=== PATIENT | male | born 1935 | race Caucasian/White ===

== ENCOUNTER → 2017-09-12 | Outpatient (CLI) | payer MEDICARE ==
[2017-09-12 13:36] LABS: EKG EKG PERFORMED
[2017-09-12 14:30] LABS: ALT 28 U/L (21-72); AST 29 U/L (17-59); Alkaline Phosphatase 59 U/L (38-126); Anion Gap 13 mmol/L; Blood Urea Nitrogen 11 mg/dL (9-20); Calcium 10.4 mg/dL (8.4-10.2); Carbon Dioxide 26 mmol/L (22-30); Chloride 101 mmol/L (98-107); Glucose 97 mg/dL (74-99); Non-African American GFR(MDRD) >60 (>60 ml/min/1.73 sqM); Potassium 5.2 mmol/L (3.5-5.1); Sodium 140 mmol/L (137-145); Total Bilirubin 0.4 mg/dL (0.2-1.3); Total Protein 7.9 g/dL (6.3-8.2)
[2017-09-12 14:31] LABS: INR 1.1 (<1.2); Prothrombin Time 10.8 sec (9.0-12.0)
[2017-09-12 14:36] LABS: Appearance,Urine Clear (Clear); Bilirubin,Urine Negative (Negative); Glucose,Urine (UA) Negative (Negative); Ketones,Urine Negative (Negative); Leukocyte Esterase,Urine Negative (Negative); Nitrite,Urine Negative (Negative); Protein,Urine Negative (Negative); Specific Gravity,Urine 1.013 (1.001-1.035); UA Billing (MACRO vs. MICRO) CHEM; Urobilinogen,Urine <2.0 mg/dL (<2.0)
[2017-09-12 14:41] LABS: CH 28.5; CHCM 30.9; HCT 42.2 % (39.0-53.0); HDW 2.35; Hypochromasia Slight; Large Platelets Flag Slight; MCH 28.6 pg (25.0-35.0); MCHC 30.9 g/dL (31.0-37.0); MCV 92.7 fL (80.0-100.0); Mean Platelet Volume 10.9; RBC 4.55 m/uL (4.30-5.90); RDW 15.3 % (11.5-15.5); WBC 10.3 k/uL (3.8-10.6)
== END | disposition home or self-care (01) ==
LOC: LABPAT 13:25
PROVIDERS: ATTEND Orthopaedic Surgery
DX: Z01.810 Encounter for preprocedural cardiovascular examination (principal); Z01.812 Encounter for preprocedural laboratory examination; Z79.01 Long term (current) use of anticoagulants
CPT/HCPCS: 36415; 80053; 81003; 85027; 85610; 85730; 86850; 86900; 86901; 87070; 93005

== ENCOUNTER 2018-03-22 07:46 | Day surgery (SDC) | payer MEDICARE ==
[2018-03-21 10:13] VITALS: BMI 20.1
[~2018-03-22 07:46] MED LIST: LACTATED RINGERS 1,000 ML IV SCH; LIDOCAINE 1% 20 ML VIAL (10MG/ML) FOR IV START INTRADERMA PRN; MIDAZOLAM 2 MG/2 ML VIAL IV PRN; MOXIFLOXACIN HCL 0.5% DROPS 3 ML BTL OP ONE; TETRACAINE 0.5% OPHTH (PF) DROPS 4 ML BTL OP ONE
[2018-03-22] MEDS: PHENYLEPHRINE 2.5% OPHTH DRP 2ML OP NR ×3 (08:30→08:50)
[2018-03-22] MEDS: CYCLOPENTOLATE 1% OPHTH SOLN 2 ML BTL OP ONE ×3 (08:35→08:55)
[2018-03-22 09:00] VITALS: TEMP 97.2
[2018-03-22] MEDS ORDERED: fentaNYL (PF) 50 MCG/ML 2 ML AMP ONE (09:29)
[2018-03-22] MEDS ORDERED: MIDAZOLAM 2 MG/2 ML VIAL ONE (09:29)
[2018-03-22] MEDS ORDERED: DUOVISC KIT (GREEN BOX) INTRAOCULA ONE ×2 (09:31→09:40)
[2018-03-22] MEDS ORDERED: BALANCED SALT IRRIG SOLN COMB2 15 ML IRRIG.SOLN IRRIGATION ONE ×2 (09:31→09:40)
[2018-03-22] MEDS ORDERED: LIDOCAINE 1% (PF) 10MG/ML VIAL MISCELLANE ONE ×2 (09:32→09:40)
[2018-03-22] MEDS: TIMOLOL 0.5% OPHTH DROPS 5 ML BTL OP ONE ×2 (09:32→09:40)
[2018-03-22] MEDS ORDERED: EPINEPHrine (PF) 0.3 ML in BALANCED SALT IRRIG SOLN COMB2 500 ML IRRIGATION ONE (09:33)
--- NOTE | 2018-03-22 09:56 | P.OP ---
Date of Procedure: 03/22/18 Preoperative Diagnosis: NS Postoperative Diagnosis: same Procedure(s) Performed: PIOL, OD Implants: PCB00 20.0 Anesthesia: MAC Surgeon: Santino Kirk Estimated Blood Loss (ml): 0 Pathology: none sent Condition: stable Disposition: same day Indications for Procedure: blurry vision Operative Findings: No complications
[2018-03-22 10:36] VITALS: BP 140/72; PULSE 72; RESP 16
--- NOTE | 2018-03-22 12:40 | OP ---
OPERATIVE REPORT DATE OF SURGERY: 03/22/2018. SURGEON: Santino Kirk MD PROGRAM DIRECTOR SUBSTANCE ABUSE: PREOPERATIVE DIAGNOSIS: Nuclear sclerosis. POSTOPERATIVE DIAGNOSIS: Nuclear sclerosis. OPERATION: Phacoemulsification of cataract and intraocular lens implant of the right eye. ESTIMATED BLOOD LOSS: Zero. SPECIMEN TAKEN: None. NARRATIVE: After obtaining the appropriate consent, the patient was brought to the operating room where the patient was placed under cardiac monitoring and prepped and draped in the usual sterile manner. At the 11 o'clock position a 15 degree super sharp blade was used to create a paracentesis followed by instillation of 1% Xylocaine MPF 50:50 mix with BSS into the anterior chamber. This was followed by viscoelastic Duovisc to stabilize the anterior chamber. At the 9 o'clock position a self-sealing corneal flap incision was created using 2.8 mm caity keratome. A cystotome was used to initiate a continuous tear capsulorrhexis which was completed with the Utrata forceps. A Binkhorst cannula was used to hydrodissect the lens nucleus followed by hydrodelineation. Phacoemulsification of the lens was performed utilizing phaco chop in 30.95 Seconds at 14% power. The remaining cortical material was removed using the irrigation aspiration mode followed by additional 1% Xylocaine MPF into the anterior chamber followed by viscoelastic to stabilize the capsular bag. An QUETA PCB00 20.0 diopters posterior chamber lens was placed into the capsular bag without difficulty. The remaining viscoelastic material was removed from the anterior chamber with the irrigation/aspiration. Balanced salt solution was used to normalize the intraocular pressure. The incision was checked for watertight integrity. The patient then received two drops of 0.5% timolol followed by two drops Vigamox, was lightly patched and shielded in the usual manner. There were no complications from the procedure. The patient tolerated the procedure well and was returned to recovery in good condition. MMODL / IJN: [id number] /
== END 2018-03-22 10:41 | disposition home or self-care (01) ==
LOC: OR 07:46
PROVIDERS: ATTEND Ophthalmology
DX: H25.13 Age-related nuclear cataract, bilateral (principal); H35.3131 Nonexudative age-related macular degeneration, bilateral, early dry stage; H43.21 Crystalline deposits in vitreous body, right eye; H52.13 Myopia, bilateral; H52.4 Presbyopia; F17.210 Nicotine dependence, cigarettes, uncomplicated; N40.0 Benign prostatic hyperplasia without lower urinary tract symptoms; Z79.82 Long term (current) use of aspirin; Z79.899 Other long term (current) drug therapy
CPT/HCPCS: 66984; C1780; J2250; J0171; J3010; J2001

== ENCOUNTER 2018-04-05 07:29 | Day surgery (SDC) | payer MEDICARE ==
[2018-03-30 12:01] VITALS: BMI 17.7
[~2018-04-05 07:29] MED LIST changes: +DEXAMETHASONE SOD PHOSPHATE 10 MG/ML 1 ML VIAL IV ONE; -MIDAZOLAM 2 MG/2 ML VIAL IV PRN; -MOXIFLOXACIN HCL 0.5% DROPS 3 ML BTL OP ONE; -TETRACAINE 0.5% OPHTH (PF) DROPS 4 ML BTL OP ONE
[2018-04-05 07:42] VITALS: RESP 16; TEMP 97.4
[2018-04-05] MEDS: CYCLOPENTOLATE 1% OPHTH SOLN 2 ML BTL OP ONE ×3 (07:44→08:03)
[2018-04-05] MEDS: PHENYLEPHRINE 2.5% OPHTH DRP 2ML OP NR ×4 (07:49→08:06)
[2018-04-05] MEDS ORDERED: MIDAZOLAM 2 MG/2 ML VIAL ONE (08:49)
[2018-04-05] MEDS ORDERED: fentaNYL (PF) 50 MCG/ML 2 ML AMP ONE (08:49)
[2018-04-05] MEDS ORDERED: LIDOCAINE 1% (PF) 10MG/ML VIAL SQ ONE (09:01)
[2018-04-05] MEDS ORDERED: DUOVISC KIT (GREEN BOX) INTRAOCULA ONE (09:01)
[2018-04-05] MEDS ORDERED: BALANCED SALT IRRIG SOLN COMB2 15 ML IRRIG.SOLN IRRIGATION ONE (09:01)
[2018-04-05] MEDS ORDERED: EPINEPHrine (PF) 0.3 ML in BALANCED SALT IRRIG SOLN COMB2 500 ML IRRIGATION ONE (09:03)
--- NOTE | 2018-04-05 09:15 | P.OP ---
Date of Procedure: 04/05/18 Preoperative Diagnosis: NS Postoperative Diagnosis: same Procedure(s) Performed: PIOL, OS Anesthesia: MAC Surgeon: Santino Kirk Estimated Blood Loss (ml): 0 Pathology: none sent Condition: stable () Disposition: same day Indications for Procedure: blurry vision Operative Findings: No complications
[2018-04-05 09:45] VITALS: BP 150/70; PULSE 64
--- NOTE | 2018-04-05 21:58 | OP ---
OPERATIVE REPORT DATE OF SURGERY: 04/05/2018 PROCEDURE: Phacoemulsification of cataract and intraocular lens implant of the left eye. PREOPERATIVE DIAGNOSIS: Nuclear sclerosis, left eye. POSTOPERATIVE DIAGNOSIS: Nuclear sclerosis, left eye. ESTIMATED BLOOD LOSS:: Zero. SPECIMEN TAKEN:: None. NARRATIVE:: After obtaining the appropriate consent, the patient was brought to the operating room, where the patient was placed under cardiac monitoring and prepped and draped in the usual sterile manner. At the 5 o'clock position a 15 degree super sharp blade was used to create a paracentesis followed by instillation of 1% Xylocaine MPF 50:50 mix with BSS into the anterior chamber. This was followed by Duovisc to stabilize the anterior chamber. At the 3 o'clock position a self-sealing corneal flap incision was created using 2.8 mm caity keratome. A cystotome was used to initiate a continuous tear capsulorrhexis which was completed with the Utrata forceps. A Binkhorst cannula was used to hydrodissect the lens nucleus followed by hydrodelineation. Phacoemulsification of the lens was performed utilizing phaco chop in 21.89 seconds at 11% power. The remaining cortical material was removed using the irrigation aspiration mode followed by additional 1% Xylocaine MPF into the anterior chamber followed by viscoelastic to stabilize the capsular bag. An [id number] 21.0 diopter posterior chamber lens was placed into the capsular bag without difficulty. The remaining viscoelastic material was removed from the anterior chamber with the irrigation/aspiration. Balanced salt solution was used to normalize the intraocular pressure. The incision was checked for watertight integrity. The patient then received two drops of 0.5% timolol followed by two drops Vigamox, was lightly patched and shielded in the usual manner. There were no complications from the procedure. The patient tolerated the procedure well and was returned to recovery in good condition. MMODL / IJN: [id number] /
[2018-04-06] MEDS ORDERED: MOXIFLOXACIN HCL 0.5% DROPS 3 ML BTL OP ONE (05:00)
[2018-04-06] MEDS ORDERED: TETRACAINE 0.5% OPHTH (PF) DROPS 4 ML BTL OP ONE (05:00)
[2018-04-06] MEDS ORDERED: TIMOLOL 0.5% OPHTH DROPS 5 ML BTL OP ONE (05:00)
== END 2018-04-05 09:49 | disposition home or self-care (01) ==
LOC: OR 07:29
PROVIDERS: ATTEND Ophthalmology
DX: H25.12 Age-related nuclear cataract, left eye (principal); H35.3131 Nonexudative age-related macular degeneration, bilateral, early dry stage; H43.21 Crystalline deposits in vitreous body, right eye; H52.13 Myopia, bilateral; Z96.1 Presence of intraocular lens; F17.210 Nicotine dependence, cigarettes, uncomplicated; I25.2 Old myocardial infarction; Z79.82 Long term (current) use of aspirin; Z79.1 Long term (current) use of non-steroidal anti-inflammatories (NSAID); Z79.52 Long term (current) use of systemic steroids; Z79.899 Other long term (current) drug therapy; Z85.46 Personal history of malignant neoplasm of prostate; Z85.828 Personal history of other malignant neoplasm of skin
CPT/HCPCS: 66984; C1780; J2250; J0171; J3010; J2001

== ENCOUNTER 2019-01-19 13:48 | Emergency (ER) | payer MEDICARE, OTHER ==
--- NOTE | 2019-01-19 15:51 | CT ---
EXAMINATION TYPE: CT cervical spine wo con DATE OF EXAM: 01/19/2019 COMPARISON: NONE HISTORY: Neck pain x 3 days. No known injury. CT DLP: 245.6 mGycm. Automated Exposure Control for Dose Reduction was Utilized. TECHNIQUE: CT scan of the cervical spine is obtained without contrast, axial images are obtained, sa gittal and coronal reformatted images are also reviewed. FINDINGS: There is multilevel malalignment of the cervical spine. There is mild retrolisthesis of C3 on C4, C4 and C5, C6 and C7 and grade 1 anterolisthesis of C7 on T1. Findings are likely on a degener ative basis as there is multilevel intervertebral disc space narrowing, endplate sclerosis, anterior osteophytes, uncovertebral hypertrophy, facet arthropathy and narrowing of the atlantodental interval . There is also somewhat straightening of the usual cervical lordosis. No vertebral body height loss is seen. There is diffuse osseous demineralization. There is a fracture that appears acute of both the anterior arch extending into the lateral mass as w ell as the posterior arch of C1 on the right. There is approximately 4 mm diastases of the anterior f racture site and 1 mm diastases of the posterior fracture site. The remainder of the cervical spine d oes not display evidence of acute fracture. Multilevel variable degree neural foraminal narrowing is seen as a result of the multilevel extensive degenerative disc disease. Moderate emphysematous changes are seen within the upper lungs with biapical pleural parenchymal scar ring, right greater than left. Airway appears maintained. IMPRESSION: 1. Acute minimally displaced fracture of the anterior arch and posterior arch of C1 on the right with 3 mm diastases of the anterior fracture site and 1 mm diastases of the posterior fracture site. Find ings were communicated with the Dr. Panchal in the ER at 1447 on 01/19/[address] Herzog. 2. Extensive multilevel degenerative disc disease of the cervical spine with multilevel malalignment likely on a degenerative basis and diffuse osseous demineralization.
[2019-01-19] MEDS ORDERED: MORPHINE SULFATE 2 MG/ML SYRINGE IVP STA (15:54)
--- NOTE | 2019-01-19 15:54 | ED ---
Neck Injury/Pain HPI - General Mode of arrival: wheelchair Limitations: no limitations <Janice Espinoza - Last Filed: 01/19/19 18:25> <aDvonte Panchal - Last Filed: 01/20/19 07:08> - General Chief Complaint: Neck Pain/Injury Stated Complaint: neck pain,nausea Time Seen by Provider: 01/19/19 14:21 - History of Present Illness Initial Comments: 84-year-old male with past medical history of prostate cancer presenting today for chief complaint of neck pain. Patient denies any trauma injuries or fall. Patient states she is pain to palpation of this cervical spine as well as pain with any range of motion. He states he cannot move his head without significant pain. Patient states the pain associated times makes him nauseous. Patient de nies any anticoagulation use. Patient is a visual changes, dizziness, headache, diplopia, gait changes, muscle weakness, sensation differences, speech changes. Patient states that he feels fine aside from the pain is neck. Patient states he thought he might need to see a chiropractor. Patient's family concerned when he asked to see a contractor presented for evaluation. Upon arrival patient a ppears well he is smiling and interactive, no signs of acute distress. Patient is holding neck and protective posture. Remaining ROS (-), patient denies any recent fever, chills, shortness of breath, chest pain, lower back pain, abdominal pain, nausea or vomiting, numbness or tingling, dysuria or hematuria, constipation or diarrhea, headaches or visual changes, or any other complaints. Pt VS WNL upon arrival. (Janice Espinoza) - Related Data Home Medications Medication Instructions Recorded Confirmed Cholecalciferol [Vitamin D3] 1,000 unit PO DAILY 01/19/19 01/19/19 Ferrous Sulfate [Feosol] 325 mg PO DAILY 01/19/19 01/19/19 Ibuprofen [Advil] 200 mg PO Q8HR PRN 01/19/19 01/19/19 Naproxen 500 mg PO Q12H PRN 01/19/19 01/19/19 Vits A,C,E/Lutein/Minerals 1 tab PO DAILY 01/19/19 01/19/19 [Ocuvite with Lutein Tablet] Allergies Allergy/AdvReac Type Severity Reaction Status Date / Time No Known Allergies Allergy Verified 01/19/19 14:29 Review of Systems ROS Other: All systems not noted in ROS Statement are negative. <Janice Espinoza - Last Filed: 01/19/19 18:25> ROS Other: All systems not noted in ROS Statement are negative. <Davonte Panchal - Last Filed: 01/20/19 07:08> ROS Statement: Those systems with pertinent positive or pertinent negative responses have been documented in the HPI. Past Medical History Past Medical History: Cancer, Eye Disorder, Osteoarthritis (OA), Prostate Disorder Additional Past Medical History / Comment(s): Cataracts; PROSTATE CA, SKIN CA NOSE. History of Any Multi-Drug Resistant Organisms: None Reported Past Surgical History: Joint Replacement, Prostate Surgery Additional Past Surgical History / Comment(s): Juan hip replacement Past Anesthesia/Blood Transfusion Reactions: No Reported Reaction Past Psychological History: No Psychological Hx Reported Smoking Status: Current every day smoker Past Alcohol Use History: Occasional Past Drug Use History: None Reported - Past Family History Mother Family Medical History: No Reported History Additional Family Medical History / Comment(s): no blood or hematological disorders in family <Janice Espinoza - Last Filed: 01/19/19 18:25> General Exam Limitations: no limitations <Janice Espinoza - Last Filed: 01/19/19 18:25> - General Exam Comments Initial Comments: General: The patient is awake and alert, in no distress, and does not appear acutely ill. Eye: +3 mm pupils are equal, round and reactive to light, extra-ocular movements are intact. No nystagmus. There is normal conjunctiva bilaterally. No signs of icterus. Ears, nose, mouth and throat: There are moist mucous membranes and no oral lesions. Neck: The neck is supple, there is no tenderness or JVD. Cardiovascular: There is a regular rate and rhythm. No murmur, rub or gallop is appreciated. Respiratory: Lungs are clear to auscultation, respirations are non-labored, breath sounds are equal. No wheezes, stridor, rales, or rhonchi. Gastrointestinal: Soft, non-distended, non-tender abdomen without masses or organomegaly noted. There is no rebound or guarding present. Musculoskeletal: Normal ROM, no tenderness. Strength 5/5. Sensation intact. Radial pulses equal bilaterally 2+. Patient unable to range at the neck. Patient has midline tenderness to palpation along the length of the cervical spine. Neurological: A&O x 3. CN II-XII intact, There are no obvious motor or sensory deficits. Coordination appears grossly intact. Speech is normal. No pronator drift. Skin: Skin is warm and dry and no rashes or lesions are noted. Psychiatric: Cooperative, appropriate mood & affect, normal judgment. (Janice Espinoza) Course <Janice Espinoza - Last Filed: 01/19/19 18:25> <Davonte Panchal - Last Filed: 01/20/19 07:08> Vital Signs 01/19/19 01/19/19 14:10 18:28 Temperature 98.3 F 97.4 F L Pulse Rate 81 76 Respiratory 18 20 Rate Blood Pressure 142/94 186/96 O2 Sat by Pulse 96 94 L Oximetry - Reevaluation(s) Reevaluation #1: Family just disclosed upon discussion about fracture that patient drinks heavily, not disclosed initially upon history taking or triage... concern for possible fall without patient remembering. Will obtain CT of the brain. 01/19/19 16:05 (Janice Espinoza) Reevaluation #2: 01/20/19 07:06 PA supervision: I proceeded [id number] evaluation the patient did discuss the findings and examine the patient and discussion with his family members. Patient has a history of alcoholism and denied any recall of falling though he did have a C1 fracture. I had discussed the case with Dr. Herzog. Patient had no neurological deficits. I do agree with the assessment and plan. (Davonte Panchal) Medical Decision Making <Janice Espinoza - Last Filed: 01/19/19 18:25> - Medical Decision Making A 84-year-old male with past medical history of EtOH abuse presenting today for chief complaint of neck pain. She initially denied any trauma. CT revealed a C1 fracture. Pt placed in C-collar. The [facility] was contacted for transfer. Patient neurovascularly intact, no radicular symptoms. Focal neurological deficits. CT of the brain without contrast negative. This was obtained 2 hours into visit as it was not initially disclosed that patient has history of ETOH abuse and also had full history of fall without knowing. Patient is evaluated in person by attending provider Dr. Panchal agrees with patient plan of care and transfer. Patient is agreeable with transfer to [facility] denies questions at this time. Patient given pain medications. I do recommend CIWA protocol as family concerned about withdrawal. I did speak with accepting physician at [facility] Who is accepted ER to ER transfer. Pt transferred via EMS. IM morphine given. (Janice Espinoza) Disposition Is patient prescribed a controlled substance at d/c from ED?: No Time of Disposition: 16:49 - Out of Hospital Transfer - Req. Specs Out of Hospital Transfer - Requested Specifics: Other Emergency Center ([facility]-- [facility]) <Janice Espinoza - Last Filed: 01/19/19 18:25> <Davonte Panchal - Last Filed: 01/20/19 07:08> Clinical Impression: C1 cervical fracture Disposition: OTHER INSTITUTION NOT DEFINED Condition: Good Instructions (If sedation given, give patient instructions): Cervical Fracture (ED) Referrals: Mark Sams MD [Primary Care Provider] - 1-2 days
--- NOTE | 2019-01-19 16:28 | CT ---
EXAMINATION TYPE: CT brain wo con DATE OF EXAM: 01/19/2019 COMPARISON: CT cervical spine of the same date HISTORY: Possible fall injury. Cervical spine fracture. Head pain. CT DLP: 1131.4 mGycm Automated exposure control for dose reduction was used. TECHNIQUE: CT scan of the head is performed without contrast. FINDINGS: There is no acute intracranial hemorrhage or midline shift identified. There is diffuse v entricular and sulcal prominence consistent with diffuse age-related cerebral atrophy. There is low- attenuation in the periventricular white matter consistent with chronic small vessel ischemic change. The globes are intact and the visualized sinuses are clear. Benign scleral calcifications are evide nt. Ocular lenses are surgically absent. No suspicious extra-axial fluid collection. Atherosclerosis is noted of the intracranial vasculature. Partially visualized cervical spine fracture is better al luated and discussed on the cervical spine dictation of the same date. IMPRESSION: No acute intracranial hemorrhage or midline shift. There is diffuse age-related cerebra l atrophy and chronic small vessel ischemic change noted.
[2019-01-19] MEDS ORDERED: ALPRAZolam 0.25 MG TAB PO STA (17:35)
[2019-01-19 18:32] VITALS: BP 186/96; PULSE 76; RESP 20; TEMP 97.4
== END 2019-01-19 18:28 | disposition short-term general hospital (02) ==
LOC: EC 13:48
DX: S12.000A Unspecified displaced fracture of first cervical vertebra, initial encounter for closed fracture (principal); F10.21 Alcohol dependence, in remission; Z91.81 History of falling; M19.90 Unspecified osteoarthritis, unspecified site; F17.200 Nicotine dependence, unspecified, uncomplicated; Z79.899 Other long term (current) drug therapy; Z85.46 Personal history of malignant neoplasm of prostate; Z85.828 Personal history of other malignant neoplasm of skin; Z96.643 Presence of artificial hip joint, bilateral; Z98.890 Other specified postprocedural states; X58.XXXA Exposure to other specified factors, initial encounter
CPT/HCPCS: 72125; 70450; 99284; 96374; J2270

== ENCOUNTER 2019-01-21 11:40 | Inpatient (IN) | payer MEDICARE, OTHER ==
[2019-01-21] MEDS ORDERED: NALOXONE 0.4 MG/ML 1 ML VIAL IV PRN (18:21)
[2019-01-21] MEDS ORDERED: LORazepam 2 MG/ML INJ IV PRN (18:39)
[2019-01-21] MEDS ORDERED: SODIUM CHLORIDE 0.45% 1,000 ML IV SCH (18:45)
[2019-01-21] MEDS ORDERED: SODIUM CHLORIDE 0.9% 1,000 ML IV ONE (20:31)
[2019-01-21] MEDS ORDERED: TEMAZEPAM 30 MG CAP PO SCH (21:00)
[2019-01-21 21:09] LABS: ALT 21 U/L (21-72); AST 74 U/L (17-59); Albumin 3.3 g/dL (3.5-5.0); Alkaline Phosphatase 50 U/L (38-126); Anion Gap 10 mmol/L; Blood Urea Nitrogen 10 mg/dL (9-20); Calcium 8.5 mg/dL (8.4-10.2); Carbon Dioxide 19 mmol/L (22-30); Chloride 108 mmol/L (98-107); Glucose 102 mg/dL (74-99); Sodium 137 mmol/L (137-145); Total Bilirubin 1.1 mg/dL (0.2-1.3); Total Protein 6.1 g/dL (6.3-8.2)
[2019-01-21 21:11] LABS: Potassium 4.4 mmol/L (3.5-5.1)
[2019-01-21 21:17] LABS: HCT 41.2 % (39.0-53.0); HGB 12.7 gm/dL (13.0-17.5); Hypochromasia Slight; MCH 28.7 pg (25.0-35.0); MCHC 30.7 g/dL (31.0-37.0); MCV 93.3 fL (80.0-100.0); RBC 4.42 m/uL (4.30-5.90); RDW 15.9 % (11.5-15.5); WBC 40.8 k/uL (3.8-10.6)
[2019-01-21 22:12] LABS: Lymphocytes # (M) 3.67 k/uL (1.0-4.8); Monocytes # (M) 17.95 k/uL (0-1.0); Neutrophils # (M) 19.18 k/uL (1.3-7.7); Neutrophils % (M) 47 %; Nucleated Red Blood Cells 0 /100 WBC (0-0); Total Cells Counted 100
[2019-01-21 22:17] LABS: Platelet Count 79 k/uL (150-450)
--- NOTE | 2019-01-21 22:25 | P.HPIM ---
History of Present Illness H&P Date: 01/21/19 Chief Complaint: alcohol withdrawal 84-year-old male with history of prostate cancer. And alcohol abuse Patient transfers from [facility] to our facility for alcohol withdrawal management. Initially patient presented to her ED with nonspecific complaints of neck pain however later on upon further evaluation he was found to have C1 fracture for which she was transferred to [facility] for neurosurgery evaluation he was evaluated over there and cleared by neurosurgery as he was found to be chronic C1 fracture with sclerotic margins and soft neck collar was recommended and to be followed up outpatient then patient was transferred back to her facility for further management of alcohol withdrawal. Patient has chronic history of alcohol abuse he drinks at least 3 beers every day and additional to unknown amount of vodka patient family is not aware how he is getting his hands on alcohol. Patient is unable to provide any meaningful history he is awake and alert but when asked he would deny any complaints. History was obtained by talking to the family and review medical records. Patient denies any pain chills fever headache chest pain trouble breathing nausea or vomiting he denies any numbness or tingling in his hands or feet he d oes report neck pain when he moves his head around. He denies any GI bleeding or abdominal pain. Patient has history of elevated white count at one point she was evaluated and was suspected to have CML he was supposed to follow up outpatient with hematology oncology however that never happened today his white count seems to be in the 40s he is afebrile denies any coughing denies any dysuria no focus of infection is identified at this point. Patient seems to be cachectic with poor by mouth intake at home he eats less than 1 meal a day. Otherwise labs reviewed from the other facility and was noticeable for high white count and low platelet count otherwise unremarkable UA unremarkable TSH hemoglobin was within normal limits Review of Systems Pertinent positives as noted in HPI. All other systems were reviewed and are negative Past Medical History Past Medical History: Cancer, Eye Disorder, Osteoarthritis (OA), Prostate Disorder Additional Past Medical History / Comment(s): Cataracts; PROSTATE CA, SKIN CA NOSE. History of Any Multi-Drug Resistant Organisms: None Reported Past Surgical History: Joint Replacement, Prostate Surgery Additional Past Surgical History / Comment(s): Juan hip replacement Past Anesthesia/Blood Transfusion Reactions: No Reported Reaction Past Psychological History: No Psychological Hx Reported Smoking Status: Current every day smoker Past Alcohol Use History: Occasional Past Drug Use History: None Reported - Past Family History Mother Family Medical History: No Reported History Additional Family Medical History / Comment(s): no blood or hematological disorders in family Medications and Allergies Home Medications Medication Instructions Recorded Confirmed Type Naproxen 500 mg PO Q12H PRN 01/19/19 01/21/19 History Vits A,C,E/Lutein/Minerals 1 tab PO DAILY 01/19/19 01/21/19 History [Ocuvite with Lutein Tablet] Temazepam [Restoril] 30 mg PO HS 01/21/19 01/21/19 History Allergies Allergy/AdvReac Type Severity Reaction Status Date / Time No Known Allergies Allergy Verified 01/21/19 18:58 Physical Exam Vitals: Vital Signs Temp Pulse Resp BP Pulse Ox 01/21/19 19:45 97.3 F L 17 93/58 01/21/19 18:19 100.4 F H 90 20 143/65 95 Intake and Output 01/21/19 01/21/19 01/21/19 06:59 14:59 22:59 Other: Weight 53.524 kg Constitutional: No acute distress, conversant, pleasant, cachectic, soft neck collar in place Eyes: Anicteric sclerae, moist conjunctiva, no lid-lag Pupils equal round reactive to light ENMT: NC/AT Oropharynx clear, no erythema, or exudates Neck: Soft neck collar in place limiting exam Lungs: Clear to auscultation Clear to percussion Normal respiratory effort, no accessory muscle use Cardiovascular: Heart regular in rate and rhythm, No murmurs, gallops, or rubs No peripheral edema Abdominal: Soft Nontender, no guarding, rebound or rigidity Abdomen moving with respiration Normoactive bowel sounds No hepatomegaly, No splenomegaly No palpable mass No abdominal wall hernia noted Skin: Normal temperature, tone, texture, turgor No induration No subcutaneous nodules No rash, lesions No ulcers Extremities: No digital cyanosis No clubbing Pedal pulses intact and symmetrical Radial pulses intact and symmetrical No calf tenderness Psychiatric: Alert and oriented to person, place not oriented to time Appropriate affect fair judgment Neuro Muscles Strength 4/5 in all 4 extremities Sensation to light touch grossly present throughout Cranial nerves II-XII grossly intact No focal sensory deficits Lymphatics: no palpable cervical or supraclavicular , or inguinal lymph nodes Results CBC & Chem 7: 01/21/19 20:20 01/21/19 20:20 Assessment and Plan Assessment: 84-year-old male with history of alcohol abuse and prostate cancer admitted under inpatient with anticipated length of stay more than 48 hours for alcohol w ithdrawal, patient was transferred from [facility] for management of alcohol withdrawal after being cleared by neurosurgery regarding his chronic C1 fracture with recommendations to keep soft neck collar in place. Patient also found to have elevated white count this goes back to 2017 when he suspected to have CML he was supposed to follow-up with hematology oncology but he never did. 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 at that time needs outpatient follow-up with hematology oncology Consults hematology Thrombocytopenia most like secondary to alcohol abuse Denies any GI bleeding Continue to monitor Moderate protein calorie malnutrition Encourage by mouth intake Ensure Chronic C1 fracture Cleared by neurosurgery at [facility] Continue with soft collar Outpatient follow-up with neurosurgery DVT prophylaxis mechanical due to low platelet count PT/OT Check chest x-ray, x-ray from the other facility reported to be negative no actual report was found, family reported suspicion of clavicle and rib fracture. Preformed a thorough record review from recent hospitalization at [facility] as summarized in HPI Surrogate decision-maker: Patient daughter CODE STATUS: Full code Discussed with: Patient, ER, RN Anticipated discharge: 48-[address]: Home per family request A total of 60 minutes was spent on the care of this complex patient more than 50% of the time was spent in counseling and care coordination.
--- NOTE | 2019-01-21 23:15 | XR ---
EXAM: XR Chest, 1 View CLINICAL HISTORY: ITS.REASON XR Reason: ?rib fracture, ?clavicle fracture per family TECHNIQUE: Frontal view of the chest. COMPARISON: Chest x-ray 09/24/17 IMPRESSION: No definite clavicular fracture. There is mildly deformed right posterior seventh rib which was seen before and may be related to prior fracture. No definite new acute fractures identified although limited in view on this position. Cardiomegaly. Left basilar atelectasis versus infection. Possible trace left pleural effusion.
[2019-01-21] MEDS: LORazepam 2 MG/ML INJ IV PRN (23:32)
[2019-01-21] MEDS: THIAMINE 100 MG TAB PO SCH (23:46)
[2019-01-22] MEDS: ACETAMINOPHEN TAB 325 MG TAB PO PRN (02:03)
[2019-01-22] MEDS: AMPICILLIN-SULBACTAM 3 GM in SODIUM CHLORIDE 0.9% 100 ML IVPB SCH ×3 (08:45→20:07)
[2019-01-22] MEDS: SODIUM CHLORIDE 0.45% 1,000 ML IV SCH ×3 (08:48→23:29)
[2019-01-22] MEDS: SODIUM CHLORIDE 0.9% 1,000 ML IV SCH (08:50)
[2019-01-22] MEDS ORDERED: ALBUTEROL NEBULIZED 2.5 MG/3 ML INHALATION PRN (10:32)
--- NOTE | 2019-01-22 10:44 | P.PN ---
Subjective Progress Note Date: 01/22/19 Principal diagnosis: alcohol withdrawal Patient is an 84-year-old male past medical history of prostate cancer, arthritis, and alcohol abuse who presented to the ER initially with complaints of chronic neck pain. He ultimately underwent a CT head and neck which showed a C1 fracture and was subsequently transferred to [facility] for neurosurgery evaluation. He was seen by neurosurgery and was cleared as this was found to be a chronic C1 fracture. They recommended a soft neck collar for comfort. Patient was subsequently transferred back to our facility for management of alcohol withdrawal. On arrival here he was awake and alert but was unable to provide meaningful history. Apparently has a chronic history of alcohol abuse and drinks at least 3 beers daily in addition to an unknown amount of vodka. He was started on CIWA protocol, IV fluids, and a chest x-ray was ordered. Chest x-ray showed possible left lower lobe infiltrate with subsequently started on Unasyn. Patient has chronically elevated white blood cell count that is now 40. 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 Patient seen and examined at bedside. He is somnolent. He will not speak to me but does open his eyes. He is currently not following commands. He is withdrawing to pain in all 4 extremities and moving them independently. He will make eye contact but not weak. Per nursing he was alert and talking to them recently and was able to tell the date of . He received both 3 mg of Ativan as well as 30 of Restoril last evening. Objective - Vital Signs Vital signs: Vital Signs Temp 97.4 F L 01/22/19 07:00 Pulse 80 01/22/19 07:00 Resp 14 01/22/19 07:00 BP 137/73 01/22/19 07:00 Pulse Ox 89 L 01/22/19 07:00 Intake & Output 01/21/19 01/22/19 01/22/19 18:59 06:59 18:59 Weight 53.524 kg Other: Voiding Method Diaper # Voids 3 - Exam General: Ill-appearing, mild distress, appears at stated age Derm: warm, dry Head: atraumatic, normocephalic, symmetric Eyes: EOMI, no lid lag, anicteric sclera Mouth: no lip lesion, mucus membranes dry Cardiovascular: S1S2 reg, no murmur, positive posterior tibial pulse bilateral, Lungs: Decreased breath sounds bilateral bases, no rhonchi, no rales , no accessory muscle use Abdominal: soft, nontender to palpation, no guarding, no appreciable organomegaly Ext: no gross muscle atrophy, no edema, no contractures Neuro: Pupils equal round reactive to light, extraocular motion intact, positive cough, positive gag, moving all 4 extremities independently, upgoing Babinski on left and downgoing on the right Psych: Somnolent, not seeking but moving all 4 extremities independently. - Labs CBC & Chem 7: 01/21/19 20:20 01/21/19 20:20 Labs: Abnormal Lab Results - Last 24 Hours (Table) 01/21/19 01/21/19 Range/Units 20:20 20:20 WBC 40.8 H (3.8-10.6) k/uL Hgb 12.7 L (13.0-17.5) gm/dL MCHC 30.7 L (31.0-37.0) g/dL RDW 15.9 H (11.5-15.5) % Plt Count 79 L (150-450) k/uL Neutrophils # (Manual) 19.18 H (1.3-7.7) k/uL Monocytes # (Manual) 17.95 H (0-1.0) k/uL Chloride 108 H (98-107) mmol/L Carbon Dioxide 19 L (22-30) mmol/L Creatinine 0.63 L (0.66-1.25) mg/dL Glucose 102 H (74-99) mg/dL AST 74 H (17-59) U/L Total Protein 6.1 L (6.3-8.2) g/dL Albumin 3.3 L (3.5-5.0) g/dL Assessment and Plan Assessment: Delirium tremens with resultant toxic encephalopathy - CIWA protocol, thiamin, folic acid - Stop restoril as this is a benzodiazipine and could have additive effects with the ativan - continuous pulse ox and telemetry - d/w with nursing no additional sedative medications until more awake. If he become more somnolent will need transfer to either selective or ICU - neuro check q2 X2 and then q 4 hours - social work consult - seizure and fall precautions Hyperchloremic metabolic acidosis - change IVF to 0.45 NS - repeat BMP Possible left sided PNA - start unasyn as is at risk for aspiration with hx of alcoholism and sedation, possible gram negative or anaerobic - follow CXR until clear - patient unable to produce sputum culture - prn bronchdilators - initial UA and CXR negative from [place] Leukocytosis, chronic - outpatient oncology follow-up Chronic C1 Fx - soft collar for comfort - pain medications - has been cleared by neurosurgery Thrombocytopenia - likely related to alcohol use - follow CBC Moderate protein calorie malnutrition - Tobacco abuse - nicotine replacmement - cessation DVT prophylaxis: Lovenox Discussed with: nursing, no family present at bedside Anticipated discharge: 2-[address]: likely home A total of 45 minutes was spent on the care of this complex patient more than 50% of the time was spent in counseling and care coordination.
[2019-01-22 11:37] LABS: HCT 42.1 % (39.0-53.0); HGB 13.1 gm/dL (13.0-17.5); Hypochromasia Slight; MCH 28.9 pg (25.0-35.0); MCHC 31.2 g/dL (31.0-37.0); MCV 92.5 fL (80.0-100.0); Mean Platelet Volume 12.8; RBC 4.55 m/uL (4.30-5.90); RDW 15.8 % (11.5-15.5); WBC 47.4 k/uL (3.8-10.6)
[2019-01-22 11:42] LABS: Platelet Count 81 k/uL (150-450)
[2019-01-22] MEDS: LORazepam 2 MG/ML INJ IV PRN ×2 (11:51→22:47)
[2019-01-22 11:56] LABS: Anion Gap 10 mmol/L; Blood Urea Nitrogen 10 mg/dL (9-20); Carbon Dioxide 20 mmol/L (22-30); Chloride 109 mmol/L (98-107); Glucose 87 mg/dL (74-99); Magnesium 1.6 mg/dL (1.6-2.3); Phosphorus 2.7 mg/dL (2.5-4.5); Potassium 3.7 mmol/L (3.5-5.1); Sodium 139 mmol/L (137-145)
[2019-01-22] MEDS: FOLIC ACID 1 MG TAB PO SCH (13:08)
[2019-01-22] MEDS: MULTIVITAMINS, THERA 1 EACH TAB PO SCH (13:08)
[2019-01-22] MEDS: THIAMINE 100 MG TAB PO SCH ×2 (13:08→17:07)
[2019-01-22 14:52] VITALS: BMI 21.5
--- NOTE | 2019-01-22 19:36 | P.PN ---
Progress Note - Text Called to see patient by nursing for increased wheezing. Increased wheezing confirmed on exam, he was started on duonebs. Continuous pulse ox discontinued as poor wave form but all day when wave form with good his sat was greater than 90. Patient had urinary retention this afternoon and had to have straight cath by nursing with return of 350 cc that appeared concentrated. . Asked for repeat bladder scan between 8-9 pm and call us if greater than 300.
[2019-01-22] MEDS: IPRATROPIUM-ALBUTEROL 3 ML NEB INHALATION SCH ×2 (19:55→22:59)
[2019-01-23] MEDS: LORazepam 2 MG/ML INJ IV PRN ×5 (00:54→21:31)
[2019-01-23] MEDS: AMPICILLIN-SULBACTAM 3 GM in SODIUM CHLORIDE 0.9% 100 ML IVPB SCH ×4 (02:37→20:35)
[2019-01-23] MEDS: IPRATROPIUM-ALBUTEROL 3 ML NEB INHALATION SCH ×5 (03:24→19:45)
[2019-01-23] MEDS: ACETAMINOPHEN TAB 325 MG TAB PO PRN (07:31)
[2019-01-23] MEDS: PANTOPRAZOLE 40 MG TABLET PO SCH (07:32)
[2019-01-23] MEDS: ENOXAPARIN 40 MG/0.4 ML SYRINGE SQ SCH (07:32)
[2019-01-23] MEDS: SODIUM CHLORIDE 0.45% 1,000 ML IV SCH ×3 (07:45→23:25)
[2019-01-23 08:18] LABS: HCT 41.5 % (39.0-53.0); HGB 12.9 gm/dL (13.0-17.5); Hypochromasia Slight; MCH 28.7 pg (25.0-35.0); MCHC 31.2 g/dL (31.0-37.0); Mean Platelet Volume 13.2; RBC 4.51 m/uL (4.30-5.90); RDW 15.7 % (11.5-15.5); WBC 41.2 k/uL (3.8-10.6)
[2019-01-23 08:23] LABS: Platelet Count 90 k/uL (150-450)
[2019-01-23 08:31] LABS: Anion Gap 12 mmol/L; Blood Urea Nitrogen 11 mg/dL (9-20); Calcium 8.2 mg/dL (8.4-10.2); Carbon Dioxide 18 mmol/L (22-30); Chloride 109 mmol/L (98-107); Glucose 88 mg/dL (74-99); Magnesium 1.6 mg/dL (1.6-2.3); Potassium 3.1 mmol/L (3.5-5.1); Sodium 139 mmol/L (137-145)
--- NOTE | 2019-01-23 10:38 | P.CONS ---
History of Present Illness - Reason for Consult Consult date: 01/22/19 Leukocytosis Requesting physician: Phillip Meier - Chief Complaint ETOH - History of Present Illness Mr. Zuniga is a pleasant 84 year old male patient who presents for ETOH Withdrawal. When he first presented he was found to have a C1 fracture and transferred to [facility] for Neurosurgery evaluation, Monique evaluated and determined this was a chronic fracture, soft tissue collar was recommended and he was transferred back to [facility] for continued care. He states he does have a history of colon cancer approximately 5 years ago in which he received radiation therapy. I do not have any records of this history. Hematology was consulted regarding Leukocytosis. He was last seen by hematolgy in September 2017 after right hip arthroplasty by Dr. braga. At that time evaluated for elevated post operative white count and monocytes, with a drop in platelet and hemoglobin. His presentation consistent with a CMML and was suppose to follow up as outpatient but never did. therefore we have been asked to re- assess. His blood counts this admission actually appear improved from previously, related to his cytopenias. His WBC and monocytes are about same. Review of Systems A 14 point review of systems assessed and completed and all negative except HPI Past Medical History Past Medical History: Cancer, Eye Disorder, Osteoarthritis (OA), Prostate Disorder Additional Past Medical History / Comment(s): Cataracts; PROSTATE CA, SKIN CA NOSE. History of Any Multi-Drug Resistant Organisms: None Reported Past Surgical History: Joint Replacement, Prostate Surgery Additional Past Surgical History / Comment(s): Juan hip replacement Past Anesthesia/Blood Transfusion Reactions: No Reported Reaction Past Psychological History: No Psychological Hx Reported Smoking Status: Current every day smoker Past Alcohol Use History: Occasional Past Drug Use History: None Reported - Past Family History Mother Family Medical History: No Reported History Additional Family Medical History / Comment(s): no blood or hematological disorders in family Medications and Allergies Home Medications Medication Instructions Recorded Confirmed Type Naproxen 500 mg PO Q12H PRN 01/19/19 01/21/19 History Vits A,C,E/Lutein/Minerals 1 tab PO DAILY 01/19/19 01/21/19 History [Ocuvite with Lutein Tablet] Temazepam [Restoril] 30 mg PO HS 01/21/19 01/21/19 History Allergies Allergy/AdvReac Type Severity Reaction Status Date / Time No Known Allergies Allergy Verified 01/21/19 18:58 Physical Exam Vitals: Vital Signs Temp Pulse Resp BP Pulse Ox 01/22/19 11:54 96 01/22/19 11:17 94 L 01/22/19 07:00 97.4 F L 80 14 137/73 89 L 01/22/19 01:00 101.7 F H 01/22/19 00:00 65 18 01/21/19 23:00 99.3 F 65 18 162/96 96 01/21/19 19:45 97.3 F L 17 93/58 01/21/19 18:19 100.4 F H 90 20 143/65 95 Intake and Output 01/21/19 01/22/19 01/22/19 22:59 06:59 14:59 Other: Voiding Method Diaper # Voids 2 3 Weight 53.524 kg Gen: No acute distress, poor historian, pleasant Head/Neck: C-Collar in place, Supple Lungs: No increased respiratory effort. Diminished bibasilar Heart: RRR.S1 Abd: Soft, ND Ext: No edema Neuro: No sensory or motor deficits noted Results CBC & Chem 7: 01/23/19 07:40 01/23/19 07:40 Labs: Abnormal Lab Results - Last 24 Hours (Table) 01/21/19 01/21/19 01/22/19 Range/Units 20:20 20:20 11:20 WBC 40.8 H 47.4 H (3.8-10.6) k/uL Hgb 12.7 L (13.0-17.5) gm/dL MCHC 30.7 L (31.0-37.0) g/dL RDW 15.9 H 15.8 H (11.5-15.5) % Plt Count 79 L 81 L (150-450) k/uL Neutrophils # (Manual) 19.18 H (1.3-7.7) k/uL Monocytes # (Manual) 17.95 H (0-1.0) k/uL Chloride 108 H (98-107) mmol/L Carbon Dioxide 19 L (22-30) mmol/L Creatinine 0.63 L (0.66-1.25) mg/dL Glucose 102 H (74-99) mg/dL Calcium (8.4-10.2) mg/dL AST 74 H (17-59) U/L Total Protein 6.1 L (6.3-8.2) g/dL Albumin 3.3 L (3.5-5.0) g/dL 01/22/19 Range/Units 11:20 WBC (3.8-10.6) k/uL Hgb (13.0-17.5) gm/dL MCHC (31.0-37.0) g/dL RDW (11.5-15.5) % Plt Count (150-450) k/uL Neutrophils # (Manual) (1.3-7.7) k/uL Monocytes # (Manual) (0-1.0) k/uL Chloride 109 H (98-107) mmol/L Carbon Dioxide 20 L (22-30) mmol/L Creatinine 0.63 L (0.66-1.25) mg/dL Glucose (74-99) mg/dL Calcium 8.0 L (8.4-10.2) mg/dL AST (17-59) U/L Total Protein (6.3-8.2) g/dL Albumin (3.5-5.0) g/dL Assessment and Plan Plan: Assessment and Plan (1) Leukocytosis - elevated white blood cell count with absolute neutrophilia and elevated monocytes, mild anemia and thrombocytopenia. Dr. Braga suspected possibly an underlying CMML in 2017, when first evaluated post operatively for right hip arthroplasty. - It was recommended patient follow up as outpatient for continued monitoring although never did, remediation was provided and recommendation to remain adhere nt provided. - His Platlets and Anemia are improved from previous admissiojn, At this time monitoring and surveillance indicated. - Most CMML do not require treatment although with increased WBC over past year and half closer monitoring (2) Thrombocytopenia - Remains in safe range greater than 50K - If anticoagulation or anti-platelet therapy needed, as long as platelets >50,000 Physician Attesst: I have completed the full history and physical and devloped the above impression and plan, agree with dictation. Dictated as ascribe.
[2019-01-23] MEDS ORDERED: POTASSIUM BICARBONATE/CIT AC 20 MEQ TABLET.EFF PO ONE (11:18)
[2019-01-23] MEDS ORDERED: POTASSIUM CHLORIDE 20 MEQ in WATER FOR INJECTION 1 100ML.BAG IVPB STA (11:18)
[2019-01-23] MEDS: FOLIC ACID 1 MG TAB PO SCH (12:03)
[2019-01-23] MEDS: THIAMINE 100 MG TAB PO SCH ×2 (12:03→17:23)
[2019-01-23] MEDS: MULTIVITAMINS, THERA 1 EACH TAB PO SCH (12:03)
--- NOTE | 2019-01-23 14:38 | P.PN ---
Subjective Progress Note Date: 01/23/19 Principal diagnosis: alcohol withdrawal Patient is an 84-year-old male past medical history of prostate cancer, arthritis, and alcohol abuse who presented to the ER initially with complaints of chronic neck pain. He ultimately underwent a CT head and neck which showed a C1 fracture and was subsequently transferred to [facility] for neurosurgery evaluation. He was seen by neurosurgery and was cleared as this was found to be a chronic C1 fracture. They recommended a soft neck collar for comfort. Patient was subsequently transferred back to our facility for management of alcohol withdrawal. On arrival here he was awake and alert but was unable to provide meaningful history. Apparently has a chronic history of alcohol abuse and drinks at least 3 beers daily in addition to an unknown amount of vodka. He was started on CIWA protocol, IV fluids, and a chest x-ray was ordered. Chest x-ray showed possible left lower lobe infiltrate with subsequently started on Unasyn. Patient has chronically elevated white blood cell count that is now 40. 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 His mentation improved with discontinuation of his restoril. Patient seen and examined at bedside. Awake and looking around oriented X2, c/o neck pain and shoulder pain, deneis shortness of breath. Still confused but more awake today. No fmaily present at bedside. Objective - Vital Signs Vital signs: Vital Signs Temp 98.4 F 01/23/19 10:57 Pulse 82 01/23/19 11:56 Resp 25 H 01/23/19 07:48 BP 136/62 01/23/19 07:00 Pulse Ox 92 L 01/23/19 11:48 Intake & Output 01/22/19 01/23/19 01/23/19 18:59 06:59 18:59 Intake Total 1000 1100 Output Total 350 Balance 650 1100 Weight 53.524 kg Intake: IV 1000 Sodium Chloride 0.45% 1, 1000 000 ml @ 125 mls/hr IV . Q8H [facility] Rx#:[id number] Intake, IV Titration 1100 Amount Ampicillin-Sulbactam 3 gm 100 In Sodium Chloride 0.9% 100 ml @ 200 mls/hr IVPB Q6H [facility] Rx#:[id number] Sodium Chloride 0.45% 1, 1000 000 ml @ 125 mls/hr IV . Q8H [facility] Rx#:[id number] Output: Urine 350 Uretheral (Pérez) 350 Other: Voiding Method Diaper # Voids 3 - Exam General: Ill-appearing, mild distress, appears at stated age Derm: warm, dry Head: atraumatic, normocephalic, symmetric Eyes: EOMI, no lid lag, anicteric sclera Mouth: no lip lesion, mucus membranes dry Cardiovascular: S1S2 reg, no murmur, positive posterior tibial pulse bilateral, Lungs: faint wheeze bilateral , no rhonchi, no rales , no accessory muscle use Abdominal: soft, nontender to palpation, no guarding, no appreciable organomegaly Ext: no gross muscle atrophy, no edema, no contractures Neuro: Pupils equal round reactive to light, extraocular motion intact, moving all 4 extremities independently Psych: awake but confused, follows simple commands - Labs CBC & Chem 7: 01/23/19 07:40 01/23/19 07:40 Labs: Abnormal Lab Results - Last 24 Hours (Table) 01/23/19 01/23/19 Range/Units 07:40 07:40 WBC 41.2 H (3.8-10.6) k/uL Hgb 12.9 L (13.0-17.5) gm/dL RDW 15.7 H (11.5-15.5) % Plt Count 90 L (150-450) k/uL Potassium 3.1 L (3.5-5.1) mmol/L Chloride 109 H (98-107) mmol/L Carbon Dioxide 18 L (22-30) mmol/L Calcium 8.2 L (8.4-10.2) mg/dL Microbiology - Last 24 Hours (Table) 01/22/19 01:15 Blood Culture - Preliminary Blood No Growth after 24 hours Assessment and Plan Assessment: Delirium tremens with resultant toxic encephalopathy - CIWA protocol, thiamin, folic acid - neuro check q 4 hours - social work recs - seizure and fall precautions Hyperchloremic metabolic acidosis - 0.45 NS consider change to LR - repeat BMP in AM urinary retention - pérez cath Possible left sided PNA - continue unasyn, at risk for aspiration with hx of alcoholism and sedation, possible gram negative or anaerobic - follow CXR until clear - patient unable to produce sputum culture - prn bronchdilators - initial UA and CXR negative from [place] Leukocytosis, 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
--- NOTE | 2019-01-23 15:35 | XR ---
EXAMINATION TYPE: XR chest 1V portable DATE OF EXAM: 01/23/2019 HISTORY: Shortness of breath. COMPARISON: 01/21/2019 TECHNIQUE: Single view of the chest is submitted. FINDINGS: Demonstrated are scattered senescent parenchymal change. Patchy basilar densities persist with small effusions. Mild cardiomegaly and pulmonary venous congest ion. The heart is stable. Hilar and mediastinal structures are within normal limits. Degenerative changes are seen of the dorsal spine. IMPRESSION: 1. Patchy basilar densities persist with small effusions. Mild cardiomegaly and pulmonary venous con gestion.
[2019-01-23] MEDS ORDERED: TAMSULOSIN 0.4 MG CAP.ER.24H PO STA (16:41)
[2019-01-23] MEDS ORDERED: HYDROcodone/APAP 5-325MG 1 EACH TAB PO PRN (16:41)
--- NOTE | 2019-01-23 19:29 | XR ---
PROCEDURE: XR shoulder complete LT - 3V DATE AND TIME: 01/23/2019 6:23 PM CLINICAL INDICATION: PHH; pain TECHNIQUE: Department protocol COMPARISON: None FINDINGS: There is no fracture or malalignment. There are no focal osteopenic or osteosclerotic skeletal lesions. Mild/moderate glenohumeral and acromioclavicular joint degenerative changes are noted. The soft tissues are unremarkable. IMPRESSION: NO ACUTE PROCESS.
[2019-01-24] MEDS: IPRATROPIUM-ALBUTEROL 3 ML NEB INHALATION SCH ×7 (00:38→23:37)
[2019-01-24] MEDS: LORazepam 2 MG/ML INJ IV PRN (00:49)
[2019-01-24] MEDS: AMPICILLIN-SULBACTAM 3 GM in SODIUM CHLORIDE 0.9% 100 ML IVPB SCH ×4 (03:01→19:36)
[2019-01-24 08:31] LABS: ALT 28 U/L (21-72); AST 45 U/L (17-59); Albumin 2.6 g/dL (3.5-5.0); Alkaline Phosphatase 69 U/L (38-126); Anion Gap 14 mmol/L; Blood Urea Nitrogen 10 mg/dL (9-20); Carbon Dioxide 16 mmol/L (22-30); Chloride 109 mmol/L (98-107); Glucose 71 mg/dL (74-99); Potassium 3.3 mmol/L (3.5-5.1); Sodium 139 mmol/L (137-145); Total Bilirubin 1.1 mg/dL (0.2-1.3)
[2019-01-24 09:05] LABS: Anisocytosis Slight; HCT 37.5 % (39.0-53.0); HGB 11.9 gm/dL (13.0-17.5); Hypochromasia Moderate; MCH 29.8 pg (25.0-35.0); MCHC 31.6 g/dL (31.0-37.0); MCV 94.4 fL (80.0-100.0); Mean Platelet Volume 14.2; RBC 3.98 m/uL (4.30-5.90); RDW 16.1 % (11.5-15.5); WBC 35.9 k/uL (3.8-10.6)
[2019-01-24 09:07] LABS: Platelet Count 97 k/uL (150-450)
[2019-01-24] MEDS: SODIUM CHLORIDE 0.45% 1,000 ML IV SCH ×2 (09:12→12:13)
[2019-01-24] MEDS: ENOXAPARIN 40 MG/0.4 ML SYRINGE SQ SCH (09:21)
[2019-01-24] MEDS: PANTOPRAZOLE 40 MG TABLET PO SCH (09:24)
[2019-01-24] MEDS: THIAMINE 100 MG TAB PO SCH ×2 (12:11→18:05)
[2019-01-24] MEDS: MULTIVITAMINS, THERA 1 EACH TAB PO SCH (12:11)
[2019-01-24] MEDS: FOLIC ACID 1 MG TAB PO SCH (12:11)
[2019-01-24] MEDS ORDERED: POTASSIUM CHLORIDE ER 20 MEQ TAB.ER PO STA (19:35)
[2019-01-24] MEDS ORDERED: NAPROXEN 250 MG TAB PO PRN (19:36)
[2019-01-24] MEDS ORDERED: DEXTROSE 5%-0.45% NACL 1,000 ML IV SCH (19:45)
--- NOTE | 2019-01-24 19:46 | P.PN ---
Subjective Progress Note Date: 01/24/19 (delayed charting seen at 1030) Principal diagnosis: alcohol withdrawal Patient is an 84-year-old male past medical history of prostate cancer, arthritis, and alcohol abuse who presented to the ER initially with complaints of chronic neck pain. He ultimately underwent a CT head and neck which showed a C1 fracture and was subsequently transferred to [facility] for neurosurgery evaluation. He was seen by neurosurgery and was cleared as this was found to be a chronic C1 fracture. They recommended a soft neck collar for comfort. Patient was subsequently transferred back to our facility for management of alcohol withdrawal. On arrival here he was awake and alert but was unable to provide meaningful history. Apparently has a chronic history of alcohol abuse and drinks at least 3 beers daily in addition to an unknown amount of vodka. He was started on CIWA protocol, IV fluids, and a chest x-ray was ordered. Chest x-ray showed possible left lower lobe infiltrate with subsequently started on Unasyn. Patient has chronically elevated white blood cell count that is now 40. 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 His mentation improved with discontinuation of his restoril. His mentation continued to improved slowly. Patient seen and examined at bedside. More alert today. He states that his neck and back are sore, arms hurt too, no nausea, no shortness of breath. No family present at bedside. Objective - Vital Signs Vital signs: Vital Signs Temp 99.1 F 01/24/19 15:00 Pulse 68 01/24/19 15:56 Resp 20 01/24/19 16:00 BP 159/72 01/24/19 15:00 Pulse Ox 88 L 01/24/19 15:00 Intake & Output 01/24/19 01/24/19 01/25/19 06:59 18:59 06:59 Intake Total 1100 Output Total 350 480 Balance -350 620 Intake: Intake, IV Titration 1100 Amount Ampicillin-Sulbactam 3 gm 100 In Sodium Chloride 0.9% 100 ml @ 200 mls/hr IVPB Q6H [facility] Rx#:[id number] Sodium Chloride 0.45% 1, 1000 000 ml @ 125 mls/hr IV . Q8H [facility] Rx#:[id number] Output: Urine 350 480 Other: Voiding Method Indwelling Catheter Indwelling Catheter Indwelling Catheter - Exam General: Ill-appearing, no distress, appears at stated age Derm: warm, dry Head: atraumatic, normocephalic, symmetric Eyes: EOMI, no lid lag, anicteric sclera Mouth: no lip lesion, mucus membranes dry Cardiovascular: S1S2 reg, no murmur, positive posterior tibial pulse bilateral, Lungs: decreased bs bilateral , no rhonchi, no rales , no accessory muscle use Abdominal: soft, nontender to palpation, no guarding, no appreciable organomegaly Ext: no gross muscle atrophy, no edema, no contractures Neuro: Pupils equal round reactive to light, extraocular motion intact, moving all 4 extremities independently Psych: awake but confused, follows simple commands - Labs CBC & Chem 7: 01/24/19 07:36 01/24/19 07:36 Labs: Abnormal Lab Results - Last 24 Hours (Table) 01/24/19 01/24/19 Range/Units 07:36 07:36 WBC 35.9 H (3.8-10.6) k/uL RBC 3.98 L (4.30-5.90) m/uL Hgb 11.9 L (13.0-17.5) gm/dL Hct 37.5 L (39.0-53.0) % RDW 16.1 H (11.5-15.5) % Plt Count 97 L (150-450) k/uL Potassium 3.3 L (3.5-5.1) mmol/L Chloride 109 H (98-107) mmol/L Carbon Dioxide 16 L (22-30) mmol/L Creatinine 0.64 L (0.66-1.25) mg/dL Glucose 71 L (74-99) mg/dL Calcium 8.0 L (8.4-10.2) mg/dL Total Protein 5.0 L (6.3-8.2) g/dL Albumin 2.6 L (3.5-5.0) g/dL Microbiology - Last 24 Hours (Table) 01/22/19 01:15 Blood Culture - Preliminary Blood No Growth after 48 hours Assessment and Plan Assessment: Delirium tremens with resultant toxic encephalopathy - CIWA protocol, thiamine, folic acid - neuro check q 4 hours - social work recs - seizure and fall precautions Hyperchloremic metabolic acidosis - change to D5 0.45, + anion gap, check lactic acid avoid LR - repeat BMP in AM - repeat UA to assess for keytones, check lactic acid due to worsening acidosis no oral intake in 24 hours urinary retention - pérez cath - flomax started 01/23 and continued - voiding trial in AM on 01/25 Left sided PNA - continue unasyn, at risk for aspiration with hx of alcoholism and sedation, possible gram negative or anaerobic - change to Augmentin on discharge - follow CXR until clear - patient unable to produce sputum culture - prn bronchdilators - initial UA and CXR negative from [place] Leukocytosis, 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 DVT prophylaxis: Lovenox Discussed with: nursing, no family present at bedside Anticipated discharge: 24-[address]:Will need SNF on discharge A total of 35 minutes was spent on the care of this complex patient more than 50% of the time was spent in counseling and care coordination.
[2019-01-24 21:19] LABS: Appearance,Urine Clear (Clear); Bilirubin,Urine Negative (Negative); Blood,Urine Large (Negative); Color,Urine Yellow; Glucose,Urine (UA) Negative (Negative); Ketones,Urine 2+ (Negative); Leukocyte Esterase,Urine Small (Negative); Mucus,Urine Rare /hpf; Nitrite,Urine Negative (Negative); Protein,Urine 1+ (Negative); RBC,Urine >182 /hpf (0-5); Specific Gravity,Urine 1.019 (1.001-1.035)
[2019-01-24] MEDS ORDERED: POTASSIUM CHLORIDE 20 MEQ in WATER FOR INJECTION 1 100ML.BAG IVPB STA (21:43)
[2019-01-24] MEDS: TAMSULOSIN 0.4 MG CAP.ER.24H PO SCH (22:04)
[2019-01-24] MEDS: ACETAMINOPHEN TAB 500 MG TAB PO SCH (22:05)
[2019-01-25] MEDS: ACETAMINOPHEN TAB 500 MG TAB PO SCH ×5 (00:24→23:13)
--- NOTE | 2019-01-25 00:48 | CT ---
EXAM: CT Angiography Chest With Intravenous Contrast CLINICAL HISTORY: Shortness of breath TECHNIQUE: Axial computed tomographic angiography images of the chest with intravenous contrast using pulmonary embolism protocol. CTDI is 0.085, 0. 085, 1.5, 1.54, 8.1 mGy and DLP is 365.4 mGy-cm. This CT exam was performed using one or more of the following dose reduction techniques: automated exposure control, adjustment of the mA and/or kV according to patient size, and/or use of iterative reconstruction technique. MIP reconstructed images were created and reviewed. COMPARISON: CXR 01/23/2019 FINDINGS: Artifacts: Motion. Pulmonary arteries: No central pulmonary embolus. Aorta: Atherosclerosis of the thoracic aorta. No thoracic aortic aneurysm or dissection. Lungs: Bilateral dependent densities are favored to represent atelectasis. No mass. Pleural space: Moderate bilateral pleural effusions. No pneumothorax. Heart: Unremarkable. No cardiomegaly. No significant pericardial effusion. Bones/joints: Age-indeterminate fracture of the anterior superior endplate of L2 with approximately 40% height loss. Soft tissues: Unremarkable. Lymph nodes: Unremarkable. No enlarged lymph nodes. IMPRESSION: Moderate bilateral pleural effusions with adjacent atelectasis. No central pulmonary embolus or thoracic aortic dissection. Age indeterminate fracture of the anterior superior endplate of L2.
[2019-01-25] MEDS ORDERED: FUROSEMIDE 10 MG/ML 10 ML VIAL IV STA (01:07)
[2019-01-25] MEDS: AMPICILLIN-SULBACTAM 3 GM in SODIUM CHLORIDE 0.9% 100 ML IVPB SCH ×4 (03:02→20:13)
[2019-01-25] MEDS: IPRATROPIUM-ALBUTEROL 3 ML NEB INHALATION SCH ×5 (03:34→20:50)
[2019-01-25] MEDS ORDERED: MORPHINE SULFATE 2 MG/ML SYRINGE IVP ONE (07:36)
[2019-01-25 08:26] LABS: Anisocytosis Slight; HCT 37.5 % (39.0-53.0); HGB 11.9 gm/dL (13.0-17.5); Hypochromasia Slight; MCH 29.2 pg (25.0-35.0); MCHC 31.9 g/dL (31.0-37.0); MCV 91.5 fL (80.0-100.0); Platelet Count 117 k/uL (150-450); RBC 4.09 m/uL (4.30-5.90); RDW 16.1 % (11.5-15.5); WBC 43.3 k/uL (3.8-10.6)
[2019-01-25 08:44] LABS: Anion Gap 14 mmol/L; Blood Urea Nitrogen 12 mg/dL (9-20); Calcium 8.3 mg/dL (8.4-10.2); Carbon Dioxide 21 mmol/L (22-30); Chloride 107 mmol/L (98-107); Glucose 105 mg/dL (74-99); Sodium 142 mmol/L (137-145)
[2019-01-25 08:51] LABS: Potassium 2.6 mmol/L (3.5-5.1)
[2019-01-25] MEDS ORDERED: POTASSIUM CHLORIDE 40 MEQ in WATER FOR INJECTION 1 100ML.BAG IVPB STA ×2 (08:54→08:55)
[2019-01-25] MEDS: POTASSIUM CHLORIDE 20 MEQ in WATER FOR INJECTION 1 100ML.BAG IVPB SCH ×4 (09:20→18:04)
--- NOTE | 2019-01-25 11:02 | P.PN ---
Subjective Progress Note Date: 01/25/19 Principal diagnosis: Hypokalemia, alcohol withdrawal, hypoxia Patient was seen and examined. No acute events overnight. Patient is not providing any meaningful history. He denies any cough, shortness of breath, chest pain or palpitations. He does visibly have a wet cough. Reports overnight from nursing indicate the patient was hypoxic with difficulty breathing. Currently on nonrebreather saturating low 90%. CTA of the chest performed to exclude PE, shows bilateral pleural effusions. Given 80 mg IV Lasix push last night. Continued on Unasyn for coverage of aspiration pneumonia. Objective - Vital Signs Vital signs: Vital Signs Temp 98.8 F 01/25/19 07:00 Pulse 68 01/25/19 08:24 Resp 12 01/25/19 07:00 BP 180/100 01/25/19 07:00 Pulse Ox 93 L 01/25/19 08:13 Intake & Output 01/24/19 01/25/19 01/25/19 18:59 06:59 18:59 Intake Total 1100 0 Output Total 480 2550 Balance 620 -2550 Intake: Intake, IV Titration 1100 Amount Ampicillin-Sulbactam 3 gm 100 In Sodium Chloride 0.9% 100 ml @ 200 mls/hr IVPB Q6H CYDNEY Rx#:[id number] Sodium Chloride 0.45% 1, 1000 000 ml @ 125 mls/hr IV . Q8H CYDNEY Rx#:[id number] Oral 0 Output: Urine 480 2550 Other: Voiding Method Indwelling Catheter Indwelling Catheter - Exam General: [non toxic], [labored breathing on nonrebreather], [appears at stated age] Derm: [warm], [dry] Head: [atraumatic], [normocephalic], [symmetric] Eyes: [EOMI], [no lid lag], [anicteric sclera] Mouth: [no lip lesion], [mucus membranes moist] Cardiovascular: [S1S2 reg], [no murmur], [positive DP pulse bilateral] Lungs: [Coarse breath sounds bilaterally with rales at the bases] , [no accessory muscle use] Abdominal: [soft], [ nontender to palpation], [no guarding], [no appreciable organomegaly] Ext: [no gross muscle atrophy], [no edema], [no contractures] Neuro: [moving all extremities freely] Psych: [Alert], [oriented], [appropriate affect] - Labs CBC & Chem 7: 01/25/19 07:43 01/25/19 07:43 Labs: Abnormal Lab Results - Last 24 Hours (Table) 01/24/19 01/25/19 01/25/19 Range/Units 20:30 07:43 07:43 WBC 43.3 H (3.8-10.6) k/uL RBC 4.09 L (4.30-5.90) m/uL Hgb 11.9 L (13.0-17.5) gm/dL Hct 37.5 L (39.0-53.0) % RDW 16.1 H (11.5-15.5) % Plt Count 117 L (150-450) k/uL Potassium 2.6 L* (3.5-5.1) mmol/L Carbon Dioxide 21 L (22-30) mmol/L Glucose 105 H (74-99) mg/dL Calcium 8.3 L (8.4-10.2) mg/dL Urine Protein 1+ H (Negative) Urine Ketones 2+ H (Negative) Urine Blood Large H (Negative) Ur Leukocyte Esterase Small H (Negative) Urine RBC >182 H (0-5) /hpf Urine WBC 14 H (0-5) /hpf Urine Mucus Rare H (None) /hpf Microbiology - Last 24 Hours (Table) 01/22/19 01:15 Blood Culture - Preliminary Blood No Growth after 72 hours 01/24/19 20:30 Urine Culture - Preliminary Urine,Voided Assessment and Plan Assessment: Assessment and Plan 1. Delirium tremens with metabolic encephalopathy 2. Acute hypoxic respiratory failure 3. Hypokalemia 4. Urinary retention 5. Aspiration pneumonia 6. Leukocytosis 7. C1 fracture, chronic 8. Thrombocytopenia 9. Protein calorie malnutrition 10. DVT and GI prophylaxis 1. Continue thiamine, folic acid and multivitamin by mouth. Ativan IV as needed per CIWA protocol. Fall precautions. Advanced neurochecks. Seizure precautions. Follow PT and OT recommendations. 2. Concerns for aspiration, pulmonary edema. CTA of the chest showed bilateral pleural effusions and no PE. Given Lasix 80 mg IV stat last night, we'll continue Lasix 40 mg IV twice a day. We'll follow echocardiogram. DuoNeb as needed for shortness of breath or wheezing. Oxygen per nasal cannula or nonrebreather to maintain an O2 sat greater than 92%. BiPAP as needed. Follow pulmonology consult. 3. Likely secondary to alcohol abuse. Ordered EKG stat. Telemetry monitoring. Replace potassium via IV of 80 mEq. Follow-up BMP in the afternoon. 4. Continue Flomax 0.4 mg by mouth daily. Bladder scan as needed. Voiding trial and Benson catheter as needed. Monitor ins and outs closely. 5. T-max 100.1F on 01/24/2019 with leukocytosis as high as 47.4. Continue Unasyn 3 g IV every 6 hours. Tylenol as needed for fever. Continue DuoNeb, albuterol as needed for shortness of breath and wheezing. Suctioning as needed, maintain oxygenation via nasal cannula/nonrebreather/BiPAP. Blood cultures negative at 72 hours. Will follow pulmonary consult. Keep nothing by mouth pending swallow eval. 6. 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 He has been previously evaluated by h ematology and lost to follow-up. I have discussed the case with Dr. Braga, nothing to do inpatient, follow-up in the outpatient setting. 7. Pain management with Tylenol or naproxen as needed. Evaluated by neurosurgery at [facility], cleared for chronic fracture. Advised to wear c-collar at all times. 8. Platelet count of 117. This is likely secondary to alcohol abuse. Will trend his platelets given that patient is on Lovenox. 9. BMI 21.6 with low albumin. Add oral supplementation. 10. Lovenox. Protonix by mouth. Continue IV diuresis for pleural effusion. Pulmonology consulted for change in respiratory status, low threshold for intubation. Patient has poor overall prognosis due to multiple comorbid conditions. Will follow echocardiogram, IV antibiotics.
[2019-01-25] MEDS: PANTOPRAZOLE 40 MG TABLET PO SCH (11:08)
[2019-01-25] MEDS: ENOXAPARIN 40 MG/0.4 ML SYRINGE SQ SCH (11:15)
[2019-01-25] MEDS: FUROSEMIDE 10 MG/ML 4 ML VIAL IV SCH ×2 (11:16→23:13)
--- NOTE | 2019-01-25 12:31 | ECHOF ---
Referral Reason:Hypoxia, BL pleural effusion MEASUREMENTS -------- HEIGHT: 157.5 cm WEIGHT: 53.5 kg BP: IVSd: 1.4 cm (0.6 - 1.1) LVIDd: 3.6 cm (3.9 - 5.3) LVPWd: 1.2 cm (0.6 - 1.1) IVSs: 1.4 cm LVIDs: 3.2 cm LVPWs: 1.3 cm LAESV Index (A-L): 27.68 ml/m Ao Diam: 3.6 cm (2.0 - 3.7) AV Cusp: 2.1 cm (1.5 - 2.6) LA Diam: 3.9 cm (2.7 - 3.8) MV EXCURSION: 20.824 mm (> 18.000) MV EF SLOPE: 99 mm/s (70 - 150) EPSS: 0.6 cm MV E Isreal: 0.70 m/s MV DecT: 233 ms MV A Isreal: 0.76 m/s MV E/A Ratio: 0.92 RAP: 5.00 mmHg RVSP: 24.59 mmHg FINDINGS -------- Atrial fibrillation. This was a technically difficult study with suboptimal views. The left ventricular size is normal. There is mild concentric left ventricular hypertrophy. There is severe global hypokinesis of LV . Overall left ventricular systolic function is moderate-severe ly impaired with, an EF between 30 - 35 %. The right ventricle is normal in size. Normal LA size by volume 22+/-6 ml/m2. The right atrial size is normal. Lumason used Aortic valve is trileaflet and is mildly thickened. The mitral valve leaflets are mildly thickened. Mild mitral regurgitation is present , predominatel y a posteriorly directed jet. Mild tricuspid regurgitation present. There is no evidence of pulmonary hypertension. The right v entricular systolic pressure, as measured by Doppler, is 24.59mmHg. There is no pulmonic regurgitation present. The aortic root size is normal. IVC Not well visulized. There is a trivial pericardial effusion present. CONCLUSIONS -------- 1. Atrial fibrillation. 2. This was a technically difficult study with suboptimal views. 3. The left ventricular size is normal. 4. There is mild concentric left ventricular hypertrophy. 5. There is severe global hypokinesis of LV . 6. Overall left ventricular systolic function is moderate-severely impaired with, an EF between 30 - 35 %. 7. Normal LA size by volume 22+/-6 ml/m2. 8. Lumason used 9. Aortic valve is trileaflet and is mildly thickened. 10. Mild mitral regurgitation is present. 11. , predominately a posteriorly directed jet. 12. Mild tricuspid regurgitation present. 13. There is no evidence of pulmonary hypertension. 14. There is no pulmonic regurgitation present. 15. The aortic root size is normal. 16. IVC Not well visulized. 17. There is a trivial pericardial effusion present. EVENT SET UP SPECIALIST: Marva Johnson RDCS
--- NOTE | 2019-01-25 13:26 | US ---
EXAMINATION TYPE: US chest DATE OF EXAM: 01/25/2019 COMPARISON: CLINICAL HISTORY: Markings for thoracentesis by pulmonary staff. bilateral chest markings, pleural ef fusions TECHNIQUE: Targeted ultrasound of the posterior lower bilateral hemithoraces EXAM MEASUREMENTS: Right Pleural Effusion pocket size: 2.3 cm Left Pleural Effusion pocket size: 5.5 cm Left skin surface to fluid distance: 2.0 cm Right side NOT marked for possible thoracentesis due to small clear fluid pocket. Left side marked for possible thoracentesis outside the dept. Pulmonologists are able to review the images in the patient?s EMR. Limited exam due to patient unable to sit upright without help IMPRESSIONS: Bilateral pleural effusions left greater than right
[2019-01-25] MEDS ORDERED: IPRATROPIUM-ALBUTEROL 3 ML NEB INHALATION PRN (14:29)
[2019-01-25] MEDS ORDERED: MORPHINE SULFATE 2 MG/ML SYRINGE IVP PRN (14:44)
[2019-01-25] MEDS: THIAMINE 100 MG TAB PO SCH ×2 (14:53→18:15)
[2019-01-25] MEDS: MULTIVITAMINS, THERA 1 EACH TAB PO SCH (14:53)
[2019-01-25] MEDS: FOLIC ACID 1 MG TAB PO SCH (14:54)
--- NOTE | 2019-01-25 16:40 | XR ---
EXAMINATION TYPE: XR wrist complete BILATERAL DATE OF EXAM: 01/25/2019 COMPARISON: NONE HISTORY: 84-year-old male increasing bilateral wrist pain TECHNIQUE: 4 views each side FINDINGS: Left: End-stage degenerative change first CMC joint and moderate at the triscaphe joint. There is periartic ular disuse osteopenia. Soft tissue swelling. The radiocarpal and distal radioulnar joint as well as the midcarpal compartment appear intact. No displaced fracture, subluxation, or dislocation seen. Add itional degenerative changes within the remainder of the thumb. An IV is present. Right: Moderate to severe degenerative change first CMC joint and moderate at the triscaphe joint. Generaliz ed disuse osteopenia. Additional degenerative changes first through third MCP joints. There may be de generative change at the third CMC joint as well. Soft tissue swelling. The radiocarpal and distal ra dioulnar joint as well as the metacarpal compartment appear intact. Some mild TFC calcifications are present on both sides. IMPRESSION: 1. Soft tissue swelling and disuse osteopenia bilaterally. 2. 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 Additional scattered osteoarthritic changes within visualized portions of the hand. 3. No acute osseous abnormality seen. 4. Some mild TFC calcifications on both sides could represent underlying CPPD.
--- NOTE | 2019-01-25 17:21 | CONS ---
CONSULTATION DATE OF SERVICE: 01/25/2019. PULMONARY/CRITICAL CARE CONSULTATION: This is an 84-year-old gentleman we are asked to see because of bilateral pleural effusions. He has bilateral small effusions, left greater than right. We did do an ultrasound. The left side is a little bit bigger than the right side. Because of his age and because of his chronic condition, probably he should be treated conservatively with just diuretics. The right-sided effusion is too small to tap. The left side is relatively small, and we could probably do a thoracentesis on that side, but I do not know that it would help the patient all that much. He apparently was transferred from this hospital to [facility] to evaluate a potential C1 fracture. Apparently it was chronic in nature and not thought to require any neurosurgical intervention, and he was shipped back here. In addition, he was transferred here for alcohol withdrawal treatment. Anyway, the patient is a very poor historian. The patient is not really able to give us much history at all. He apparently is thought to have possible chronic myelocytic leukemia. He apparently follows in outpatient Hematology/Oncology. His appetite is poor. He is very wasted and cachectic. The patient has a history of chronic alcohol abuse and drinks heavily. He is known to have beer and vodka on a daily basis. Again, he is not able to provide any additional meaningful history. He was seen and evaluated by the internal medicine group, and the assessment was that of alcohol abuse, prostate cancer, alcohol withdrawal syndrome, chronic C1 fracture, possible seizure disorder as well as a whole host of other medical problems. He also has a history of cataracts, prostate cancer, skin cancer, osteoarthritis along with bilateral hip replacement and other orthopedic procedures. SOCIAL HISTORY: He continues to smoke on a daily basis and drinks every day. No illicit drug use. The rest of the history is not too remarkable. He is not able to give any family history. His home medications apparently include only Restoril, naproxen and vitamins. ALLERGIES are DENIED. Again, the patient himself can give no history. When I ask him where he is, he is not sure. When I ask him who his primary doctor is, he cannot tell me. The patient does not even know why he is in the hospital. REVIEW OF SYSTEMS: CONSTITUTIONAL: Unknown. NEUROLOGIC: Unknown. HEENT: Unknown. CARDIOVASCULAR: Unknown. PULMONARY: Unknown. GI/: Unknown. RHEUMATOLOGIC/IMMUNOLOGIC: Unknown. DERMATOLOGIC: Unknown. PHYSICAL EXAMINATION: Current vital signs are reviewed. Temperature is 98.8, heart rate 68, respiratory rate 20. Blood pressure is 180/100, mean 126, and saturations are mid 90s on a non- rebreather. He appears in no acute distress. He just mumbles, really unable to give any clear-cut history. Does not appear to be in any distress. When asked whether or not he is having any difficulty breathing, he answers "no," although again it is hard to know whether not that is an accurate answer, but he does not appear to be in any distress. No audible wheezing. No use of accessory muscles. HEENT examination is grossly unremarkable. A non-rebreather mask is noted. NECK: Supple. Full range of motion. No adenopathy or thyromegaly. Neck veins are flat. Cardiovascular examination reveals regular rhythm and rate. Heart sounds are distant. S1, S2 normal. LUNGS: Some bibasilar crackles. Breath sounds are diminished. He does not take deep breaths. Breath sounds are equal bilaterally. ABDOMEN: Soft. Bowel sounds are heard. Extremities are intact. There is no cyanosis, clubbing or edema. Skin reveals multiple areas of ecchymosis. Neurologic examination is difficult to assess. LAB DATA: Reviewed. White count 43.3, hemoglobin 11.9, hematocrit 37.5, platelet count 117,000. Sodium 142, potassium 2.6, chloride 107, CO2 21. BUN and creatinine were 12 and 0.75. Urinalysis shows 1+ protein, 2+ ketones, large blood, small leukocyte esterase, greater than 182 RBCs and 14 WBCs. There is no bacteria. ASSESSMENT: 1. Small bilateral pleural effusions, left greater than right; may relate to underlying congestive heart failure. 2. History of prostate cancer. 3. History of skin cancer. 4. Cataracts. 5. Osteoarthritis. 6. Chronic myelocytic leukemia. 7. History of heavy tobacco and alcohol abuse. 8. Probable metabolic encephalopathy. 9. Bilateral hip replacement. 10.Ongoing tobacco use with nicotine addiction. PLAN: The patient will have an ultrasound of the chest. The ultrasound shows no evidence of significant effusions. The right side is too small to tap. The left side is only moderately increased and could be amenable to thoracentesis but should probably be treated conservatively with diuretics. The patient will have an N-terminal proBNP done. No additional recommendations are made. Prognosis is guarded. The patient's CODE STATUS should be addressed. His overall prognosis is poor. MMODL / IJN: [id number] / MTDD
[2019-01-25] MEDS: TAMSULOSIN 0.4 MG CAP.ER.24H PO SCH (20:09)
[2019-01-26] MEDS: ACETAMINOPHEN TAB 500 MG TAB PO SCH ×4 (00:48→15:10)
[2019-01-26] MEDS: LORazepam 2 MG/ML INJ IV PRN (01:36)
[2019-01-26] MEDS: AMPICILLIN-SULBACTAM 3 GM in SODIUM CHLORIDE 0.9% 100 ML IVPB SCH ×4 (02:25→21:39)
[2019-01-26] MEDS: PANTOPRAZOLE 40 MG TABLET PO SCH (07:12)
[2019-01-26] MEDS: ENOXAPARIN 40 MG/0.4 ML SYRINGE SQ SCH (07:12)
[2019-01-26] MEDS: FUROSEMIDE 10 MG/ML 4 ML VIAL IV SCH ×2 (07:12→21:40)
[2019-01-26] MEDS: IPRATROPIUM-ALBUTEROL 3 ML NEB INHALATION SCH ×4 (08:28→20:16)
[2019-01-26 08:46] LABS: HCT 39.9 % (39.0-53.0); HGB 12.5 gm/dL (13.0-17.5); MCH 28.6 pg (25.0-35.0); MCHC 31.5 g/dL (31.0-37.0); MCV 90.9 fL (80.0-100.0); Mean Platelet Volume 13.8; Platelet Count 121 k/uL (150-450); RBC 4.39 m/uL (4.30-5.90); RDW 15.9 % (11.5-15.5); WBC 36.7 k/uL (3.8-10.6)
[2019-01-26 08:50] LABS: Anion Gap 10 mmol/L; Blood Urea Nitrogen 18 mg/dL (9-20); Calcium 8.3 mg/dL (8.4-10.2); Carbon Dioxide 29 mmol/L (22-30); Chloride 106 mmol/L (98-107); Glucose 111 mg/dL (74-99); Magnesium 1.4 mg/dL (1.6-2.3); Phosphorus 2.3 mg/dL (2.5-4.5); Sodium 145 mmol/L (137-145)
[2019-01-26 08:51] LABS: Potassium 2.6 mmol/L (3.5-5.1)
[2019-01-26] MEDS ORDERED: Potassium Replacement Protocol 1 EACH MISC MISCELLANE PRN ×2 (09:21→10:38)
[2019-01-26] MEDS ORDERED: KETOROLAC 30 MG/ML 1 ML VIAL IVP PRN (09:29)
[2019-01-26] MEDS ORDERED: Magnesium Replacement Protocol 1 EACH MISC MISCELLANE PRN (09:32)
[2019-01-26] MEDS: MAGNESIUM SULFATE-D5W PMX 1 GM in DEXTROSE/WATER 1 100ML.BAG IVPB SCH ×3 (10:18→12:41)
[2019-01-26] MEDS: POTASSIUM CHLORIDE 20 MEQ in WATER FOR INJECTION 1 100ML.BAG IVPB SCH ×3 (10:19→14:34)
--- NOTE | 2019-01-26 10:23 | XR ---
EXAMINATION TYPE: XR chest 1V portable DATE OF EXAM: 01/26/2019 COMPARISON: 01/23/2019 HISTORY: Hypoxia and shortness of breath TECHNIQUE: Single frontal view of the chest is obtained. FINDINGS: Small layering pleural effusions are redemonstrated. Right basilar and retrocardiac consol idations are again noted. Remainder the lungs are clear. Diffuse osseous demineralization is present. Cardiac silhouette is mildly enlarged. Old right lateral rib deformities are present. IMPRESSION: Layering small bilateral pleural effusions and bibasilar airspace disease, likely atelect asis.
[2019-01-26] MEDS ORDERED: Phosphorus Replacement Protoco 1 EACH MISC MISCELLANE PRN (10:38)
[2019-01-26 11:00] LABS: Magnesium 1.4 mg/dL (1.6-2.3)
[2019-01-26 11:21] LABS: Potassium 2.4 mmol/L (3.5-5.1)
[2019-01-26] MEDS: MULTIVITAMINS, THERA 1 EACH TAB PO SCH (12:41)
[2019-01-26] MEDS: THIAMINE 100 MG TAB PO SCH ×2 (12:41→15:10)
[2019-01-26] MEDS: FOLIC ACID 1 MG TAB PO SCH (12:41)
--- NOTE | 2019-01-26 12:41 | P.CRDCN ---
History of Present Illness Consult date: 01/26/19 Requesting physician: Nolvia Max Reason for Consult (text): chf Chief complaint: Fall History of present illness: This is a pleasant 84-year-old gentleman with history of CML, alcohol abuse, prostate cancer, smoking and noncompliance. Initially presented to the emergency room here after falling at home due to complaints of back discomfort. He was initially transferred to [facility] due to a cervical fracture which was later found to be old. Family requested he be transferred back here for alcohol withdrawal management. He admits to drinking 3 beers every day, denies any liquor intake. He does live with family but is apparently very mobile and independent at home. We were asked to see the patient in consultation for CHF. Chest x-ray showed bilateral small pleural effusions, NT proBNP 31,000 and echocardiogram showed severe global hypokinesis with a moderate to severely impaired LV systolic function, ejection fraction 30-35%, mild MR and mild TR. In speaking with the patient, his main complaint is neck and back pain as well as significant weakness. He's apparently been kept nothing by mouth pending swallow eval. He is currently on high flow oxygen maintaining an O2 sat of 96%. He is receiving Lasix 40 mg IV every 12 hours. He was seen by pulmonary who feel conservative management of pleural effusions is the best option at this point. The patient denies any shortness of breath, PND, orthopnea or lower extremity edema at this time. He apparently had no complaints of these at home as well. Labs this morning showed a potassium of 2.6, magnesium of 1.4 these are both being replaced. He is sinus rhythm with PACs and PVCs on the monitor. Past Medical History Past Medical History: Cancer, Eye Disorder, Osteoarthritis (OA), Prostate Disorder Additional Past Medical History / Comment(s): Cataracts; PROSTATE CA, SKIN CA NOSE. History of Any Multi-Drug Resistant Organisms: None Reported Past Surgical History: Joint Replacement, Prostate Surgery Additional Past Surgical History / Comment(s): Juan hip replacement Past Anesthesia/Blood Transfusion Reactions: No Reported Reaction Past Psychological History: No Psychological Hx Reported Smoking Status: Current every day smoker Past Alcohol Use History: Occasional Past Drug Use History: None Reported - Past Family History Mother Family Medical History: No Reported History Additional Family Medical History / Comment(s): no blood or hematological di sorders in family Medications and Allergies Home Medications Medication Instructions Recorded Confirmed Type Naproxen 500 mg PO Q12H PRN 01/19/19 01/21/19 History Vits A,C,E/Lutein/Minerals 1 tab PO DAILY 01/19/19 01/21/19 History [Ocuvite with Lutein Tablet] Temazepam [Restoril] 30 mg PO HS 01/21/19 01/21/19 History Allergies Allergy/AdvReac Type Severity Reaction Status Date / Time No Known Allergies Allergy Verified 01/21/19 18:58 Physical Exam Vitals: Vital Signs Temp Pulse Pulse Pulse Resp BP Pulse Ox 01/26/19 08:40 84 01/26/19 08:28 84 01/26/19 07:00 98.4 F 62 16 162/91 95 01/25/19 23:45 97.4 F L 100 19 160/87 95 01/25/19 21:00 88 16 01/25/19 20:50 84 16 01/25/19 20:11 99.1 F 103 H 20 139/77 94 L 01/25/19 16:55 80 18 01/25/19 16:54 22 01/25/19 16:46 82 18 01/25/19 15:00 98 F 70 12 130/69 93 L 01/25/19 13:44 56 L 01/25/19 13:30 56 L Intake and Output 01/25/19 01/26/19 01/26/19 22:59 06:59 14:59 Intake Total 200 Output Total 1999 155 Balance -1800 -1550 Intake: Intake, IV Titration 200 Amount Ampicillin-Sulbactam 3 gm 100 In Sodium Chloride 0.9% 100 ml @ 200 mls/hr IVPB Q6H [facility] Rx#:[id number] Potassium Chloride 20 meq 100 In Water For Injection 1 100ml.bag @ 50 mls/hr IVPB Q2H [facility] Rx#: [id number] Output: Urine 1999 1549 Uretheral (Benson) 1000 Other: Voiding Method Indwelling Catheter Indwelling Catheter Indwelling Catheter # Bowel Movements 0 PHYSICAL EXAMINATION: HEENT: Head is atraumatic, normocephalic. Pupils equal, round. Soft cervical collar in place HEART EXAMINATION: Heart sounds irregular, S1 and S2 with a systolic murmur. CHEST EXAMINATION: Lungs reveal diminished air entry bilaterally with faint expiratory wheezing and faint crackles bilateral bases. No chest wall tenderness is noted on palpation or with deep breathing. ABDOMEN: Soft, nontender. Bowel sounds are heard. No organomegaly noted. EXTREMITIES: 2+ peripheral pulses with no evidence of peripheral edema and no calf tenderness noted. Generalized weakness noted. NEUROLOGIC patient is awake, alert and oriented x2-3. . Results 01/26/19 08:12 01/26/19 10:15 CBC 01/26/19 Range/Units 08:12 WBC 36.7 H (3.8-10.6) k/uL RBC 4.39 (4.30-5.90) m/uL Hgb 12.5 L (13.0-17.5) gm/dL Hct 39.9 (39.0-53.0) % Plt Count 121 L (150-450) k/uL Comprehensive Metabolic Panel 01/26/19 01/26/19 Range/Units 08:12 10:15 Sodium 145 (137-145) mmol/L Potassium 2.6 L* 2.4 L* (3.5-5.1) mmol/L Chloride 106 (98-107) mmol/L Carbon Dioxide 29 (22-30) mmol/L BUN 18 (9-20) mg/dL Creatinine 0.70 (0.66-1.25) mg/dL Glucose 111 H (74-99) mg/dL Calcium 8.3 L (8.4-10.2) mg/dL Current Medications Generic Name Dose Route Start Last Admin Trade Name Freq PRN Reason Stop Dose Admin Acetaminophen 500 mg 01/24/19 20:00 01/26/19 05:15 Tylenol Tab PO Not Given Q6HR [facility] Hydrocodone Bitart/Acetaminophen 1 each 01/23/19 16:41 01/23/19 17:23 [place] 5-325 PO 1 each Q6HR PRN Administration Moderate Pain Albuterol/Ipratropium 3 ml 01/25/19 14:29 Duoneb 0.5 Mg-3 Mg/3 Ml Soln INHALATION RT-QID PRN Shortness Of Breath Or Wheezing Albuterol/Ipratropium 3 ml 01/25/19 17:00 01/26/19 08:28 Duoneb 0.5 Mg-3 Mg/3 Ml Soln INHALATION 3 ml RT-QID [facility] Administration Enoxaparin Sodium 40 mg 01/23/19 09:00 01/26/19 07:12 Lovenox SQ 40 mg DAILY [facility] Administration Folic Acid 1 mg 01/22/19 12:00 01/25/19 14:54 Folic Acid PO Not Given DAILY@1200 [facility] Furosemide 40 mg 01/25/19 09:00 01/26/19 07:12 Lasix IV 40 mg Q12HR [facility] Administration Ampicillin Sodium/Sulbactam 100 mls @ 200 mls/hr 01/22/19 08:00 01/26/19 07:12 Sodium 3 gm/ Sodium Chloride IVPB 200 mls/hr Q6H [facility] Administration Potassium Chloride 20 meq/ IV 100 mls @ 50 mls/hr 01/26/19 09:30 01/26/19 10:19 Solution IVPB 01/26/19 15:29 50 mls/hr Q2H [facility] Administration Protocol Magnesium Sulfate/Dextrose 1 100 mls @ 100 mls/hr 01/26/19 09:45 01/26/19 11:11 gm/ IV Solution IVPB 01/26/19 12:44 100 mls/hr Q1H [facility] Administration Ketorolac Tromethamine 15 mg 01/26/19 09:29 01/26/19 09:45 Toradol IVP 01/30/19 09:29 15 mg Q6HR PRN Administration Pain Lorazepam 1 mg 01/21/19 18:39 01/26/19 01:36 Ativan IV 1 mg Q2HR PRN Administration CIWA 8 or 9 Lorazepam 1 mg 01/21/19 18:39 01/24/19 00:49 Ativan IV 1 mg Q1HR PRN Administration CIWA 10 to 15 Miscellaneous Information 1 each 01/26/19 09:21 Potassium Per Protocol MISCELLANE DAILY PRN Per Protocol Protocol Miscellaneous Information 1 each 01/26/19 09:32 Magnesium Per Protocol MISCELLANE DAILY PRN Per Protocol Protocol Miscellaneous Information 1 each 01/26/19 10:38 Phosphorus Per Protocol MISCELLANE DAILY PRN Per Protocol Protocol Miscellaneous Information 1 each 01/26/19 10:38 Potassium Per Protocol MISCELLANE DAILY PRN Per Protocol Protocol Morphine Sulfate 1 mg 01/25/19 14:44 01/25/19 15:20 Morphine Sulfate (Inj) IVP 1 mg Q4H PRN Administration SEVERE Pain/Discomfort Multivitamins 1 each 01/22/19 12:00 01/25/19 14:53 Theragran PO Not Given DAILY@1200 [facility] Naloxone HCl 0.2 mg 01/21/19 18:21 Narcan IV Q2M PRN Opioid Reversal Naproxen 500 mg 01/24/19 19:36 Naprosyn PO Q12H PRN Pain Pantoprazole Sodium 40 mg 01/23/19 07:30 01/26/19 07:12 Protonix PO Not Given AC-BRKFST [facility] Tamsulosin HCl 0.4 mg 01/24/19 19:45 01/25/19 20:09 Flomax PO Not Given PC-SUPPER [facility] Thiamine HCl 100 mg 01/21/19 17:00 01/25/19 18:15 Vitamin B-1 PO Not Given BID@1200,1700 [facility] Intake and Output 01/25/19 01/26/19 01/26/19 22:59 06:59 14:59 Intake Total 200 Output Total 2000 1550 Balance -1800 -1550 Intake: Intake, IV Titration 200 Amount Ampicillin-Sulbactam 3 gm 100 In Sodium Chloride 0.9% 100 ml @ 200 mls/hr IVPB Q6H [facility] Rx#:[id number] Potassium Chloride 20 meq 100 In Water For Injection 1 100ml.bag @ 50 mls/hr IVPB Q2H [facility] Rx#: [id number] Output: Urine 1999 1550 Uretheral (Benson) 1000 Other: Voiding Method Indwelling Catheter Indwelling Catheter Indwelling Catheter # Bowel Movements 0 01/26/19 08:12 01/26/19 10:15 Assessment and Plan Assessment: #1 small bilateral pleural effusions, left greater than right #2 acute on chronic systolic congestive heart failure #3 cardiomyopathy with an ejection fraction of 30-35%, likely secondary to alcohol abuse #4 nicotine dependence #5 alcohol abuse and withdrawal #6 CML Plan: From cardiology's perspective, medications were reviewed and at this time we will continue the same. We will add aldactone and metoprolol to be started once patient can take PO meds. Monitor renal function, electrolytes, daily weights and intake and output. We'll continue to follow the patient provides further recommendations accordingly. [employer] note has been reviewed, I agree with a documented findings and plan of care. Patient was seen and examined.
--- NOTE | 2019-01-26 13:14 | P.PN ---
Subjective Progress Note Date: 01/26/19 Principal diagnosis: Bilateral pleural effusions, left greater than the right leg to acute exacerbation of congestive heart failure This is a 84-year-old patient of Dr. Sams, who was admitted to the hospital on 01/21/2019, and we are consulted for pleural effusions, left greater than the right. Patient is also going through EtOH withdrawals, he was found to have a C1 fracture, and was transferred to [facility] for neurosurgery evaluation, liver his C1 fracture was found to be chronic in nature and no soft tissue color was recommended and patient was transferred back to Hospital for continued care. Patient does have history of prostate cancer, osteoarthritis, EtOH abuse, cataracts, hematology is also seeing the patient in regards to possibility of [place]ML[place] [address]. She was started on IV diuretics, he is in negative fluid balance, -3 L. Today's chest x-ray shows layering small bilateral pleural effusions and bibasilar airspace disease likely atelectasis. He is on 15 L per high flow nasal cannula, his pulse ox is 95%, patient is afebr ile, denies any shortness of breath or chest pain, on today's exam he is awake and alert, very pleasant, denies any distress. He will be going for modified barium swallow later on today, he was weaned off the nonrebreather mask that he was on yesterday. We will continue weaning his FiO2. Abiotic coverage in the form of Unasyn IV Lasix, nebulized bronchodilators. Blood and urine Cultures show no growth. Objective - Vital Signs Vital signs: Vital Signs Temp 98.4 F 01/26/19 07:00 Pulse 80 01/26/19 12:52 Resp 16 01/26/19 07:00 BP 162/91 01/26/19 07:00 Pulse Ox 95 01/26/19 07:00 Intake & Output 01/25/19 01/26/19 01/26/19 18:59 06:59 18:59 Intake Total 350 200 Output Total 1999 1550 Balance -1650 -1350 Weight 53.524 kg Intake: Intake, IV Titration 350 200 Amount Ampicillin-Sulbactam 3 gm 100 100 In Sodium Chloride 0.9% 100 ml @ 200 mls/hr IVPB Q6H [facility] Rx#:[id number] Potassium Chloride 20 meq 100 In Water For Injection 1 100ml.bag @ 50 mls/hr IVPB Q2H [facility] Rx#: [id number] Potassium Chloride 20 meq 100 100 In Water For Injection 1 100ml.bag @ 50 mls/hr IVPB Q2H [facility] Rx#: [id number] Sodium Chloride 0.45% 1, 50 000 ml @ 125 mls/hr IV . Q8H [facility] Rx#:[id number] Oral 0 Blood Product 0 Output: Urine 2000 1550 Uretheral (Benson) 1000 Other: Voiding Method Indwelling Catheter Indwelling Catheter Indwelling Catheter # Bowel Movements 0 - Exam GENERAL EXAM: Alert, pleasant, 84-year-old white male patient on 15 L per high flow comfortable in no apparent distress. HEAD: Normocephalic/atraumatic. EYES: Normal reaction of pupils, equal size. Conjunctiva pink, sclera white. NOSE: Clear with pink turbinates. THROAT: No erythema or exudates. NECK: No masses, no JVD, no thyroid enlargement, no adenopathy. CHEST: No chest wall deformity. Symmetrical expansion. LUNGS: Equal air entry with bibasilar diminished breath sounds CVS: Regular rate and rhythm, normal S1 and S2, no gallops, no murmurs, no rubs ABDOMEN: Soft, nontender. No hepatosplenomegaly, normal bowel sounds, no guarding or rigidity. EXTREMITIES: No clubbing, no edema, no cyanosis, 2+ pulses and upper and lower extremities. MUSCULOSKELETAL: Muscle strength and tone normal. SPINE: No scoliosis or deformity SKIN: No rashes CENTRAL NERVOUS SYSTEM: Alert and oriented -3. No focal deficits, tone is normal in all 4 extremities. PSYCHIATRIC: Alert and oriented -3. Appropriate affect. Intact judgment and insight. - Labs CBC & Chem 7: 01/26/19 08:12 01/26/19 10:15 Labs: Abnormal Lab Results - Last 24 Hours (Table) 01/26/19 01/26/19 01/26/19 Range/Units 08:12 08:12 10:15 WBC 36.7 H (3.8-10.6) k/uL Hgb 12.5 L (13.0-17.5) gm/dL RDW 15.9 H (11.5-15.5) % Plt Count 121 L (150-450) k/uL Potassium 2.6 L* 2.4 L* (3.5-5.1) mmol/L Glucose 111 H (74-99) mg/dL Calcium 8.3 L (8.4-10.2) mg/dL Phosphorus 2.3 L (2.5-4.5) mg/dL Magnesium 1.4 L 1.4 L (1.6-2.3) mg/dL Microbiology - Last 24 Hours (Table) 01/22/19 01:15 Blood Culture - Preliminary Blood No Growth after 96 hours 01/24/19 20:30 Urine Culture - Final Urine,Voided Assessment and Plan Plan: Assessment #1. Small bilateral pleural effusions, left greater than the right, and continue with IV diuretics #2. Exacerbation of congestive heart failure systolic dysfunction, echocardiogram showed moderately severe amount of left ventricular function with an EF of 30-35% #3. Hypoxemic respiratory failure related to the above #4. EtOH withdrawal #5. Daily EtOH use #6. Chronic C1 fracture #7. History of chronic myelocytic leukemia #8. History of tobacco dependence #9. Bilateral hip replacement Plan: Ultrasound of the chest has been obtained, and reviewed, and showed 2.3 cm pocket on the right, and 5.5 cm pocket on the left, we'll continue with conservative medical treatment, IV diuretics, patient is diuresing well, maintaining negative fluid balance, we will unable to wean the nonrebreather mask off, currently on high flow nasal cannula at 15 L, will continue weaning FiO2. No worsening dyspnea. No signs are stable, continue current antibiotic coverage, nebulized bronchodilators, we will see the patient on as-needed basis. No plans for thoracentesis at this time I performed a history & physical examination of the patient and discussed their management with my nurse practitioner, Anika Ladd. I reviewed the nurse practitioner's note and agree with the documented findings and plan of care. Lung sounds are positive for diminished breath sounds at the bases The findings and the impression was discussed with the patient. I attest to the documentation by the nurse practitioner. Time with Patient: Less than 30
--- NOTE | 2019-01-26 14:35 | FL ---
EXAMINATION TYPE: FL barium swallow w video DATE OF EXAM: 01/26/2019 COMPARISON: NONE HISTORY: Aspiration pneumonia. FINDINGS: Patient was evaluated in real-time fluoroscopy in the lateral projection while ingesting barium mixe d with liquids. There was laryngeal penetration on thin liquids. Delayed epiglottic inversion was no aashish. There are moderate vallecular residuals present. Slow initiation of the swallow noted. Four-minute 7 seconds fluoroscopy time, no images obtained See dictated report from speech pathology.
[2019-01-26] MEDS: TAMSULOSIN 0.4 MG CAP.ER.24H PO SCH (15:10)
--- NOTE | 2019-01-26 17:50 | P.PN ---
Subjective Progress Note Date: 01/26/19 Principal diagnosis: Alcohol withdrawal, hypokalemia Patient was seen and examined. No acute events overnight. I was able to talk to the daughter at bedside today, patient's mentation has improved since yesterday. Underwent a swallow evaluation today with video swallow, able to eat pured diet. Patient has no complaints. He denies any chest pain, shortness of breath or palpitations. No nausea or vomiting. No fever or chills. Objective - Vital Signs Vital signs: Vital Signs Temp 97.8 F 01/26/19 14:58 Pulse 80 01/26/19 16:16 Resp 20 01/26/19 14:58 BP 162/94 01/26/19 14:58 Pulse Ox 95 01/26/19 14:58 Intake & Output 01/25/19 01/26/19 01/26/19 18:59 06:59 18:59 Intake Total 350 200 Output Total 1999 1550 1800 Balance -1650 -1350 -1800 Weight 53.524 kg 53.524 kg Intake: Intake, IV Titration 350 200 Amount Ampicillin-Sulbactam 3 gm 100 100 In Sodium Chloride 0.9% 100 ml @ 200 mls/hr IVPB Q6H [facility] Rx#:[id number] Potassium Chloride 20 meq 100 In Water For Injection 1 100ml.bag @ 50 mls/hr IVPB Q2H [facility] Rx#: [id number] Potassium Chloride 20 meq 100 100 In Water For Injection 1 100ml.bag @ 50 mls/hr IVPB Q2H [facility] Rx#: [id number] Sodium Chloride 0.45% 1, 50 000 ml @ 125 mls/hr IV . Q8H [facility] Rx#:[id number] Oral 0 Blood Product 0 Output: Urine 1999 1549 1800 Uretheral ([facility]) 1000 Other: Voiding Method Indwelling Catheter Indwelling Catheter Indwelling Catheter # Bowel Movements 0 - Exam General: [non toxic], [labored breathing on nonrebreather], [appears at stated age] Derm: [warm], [dry] Head: [atraumatic], [normocephalic], [symmetric] Eyes: [EOMI], [no lid lag], [anicteric sclera] Mouth: [no lip lesion], [mucus membranes moist] Cardiovascular: [S1S2 reg], [no murmur], [positive DP pulse bilateral] Lungs: [Coarse breath sounds bilaterally with rales at the bases] , [no accessory muscle use] Abdominal: [soft], [ nontender to palpation], [no guarding], [no appreciable organomegaly] Ext: [no gross muscle atrophy], [no edema], [no contractures] Neuro: [moving all extremities freely] Psych: [Alert], [oriented], [appropriate affect] - Labs CBC & Chem 7: 01/26/19 08:12 01/26/19 10:15 Labs: Abnormal Lab Results - Last 24 Hours (Table) 01/26/19 01/26/19 01/26/19 Range/Units 08:12 08:12 10:15 WBC 36.7 H (3.8-10.6) k/uL Hgb 12.5 L (13.0-17.5) gm/dL RDW 15.9 H (11.5-15.5) % Plt Count 121 L (150-450) k/uL Potassium 2.6 L* 2.4 L* (3.5-5.1) mmol/L Glucose 111 H (74-99) mg/dL Calcium 8.3 L (8.4-10.2) mg/dL Phosphorus 2.3 L (2.5-4.5) mg/dL Magnesium 1.4 L 1.4 L (1.6-2.3) mg/dL Microbiology - Last 24 Hours (Table) 01/22/19 01:15 Blood Culture - Preliminary Blood No Growth after 96 hours 01/24/19 20:30 Urine Culture - Final Urine,Voided Assessment and Plan Assessment: Assessment and Plan 1. Delirium tremens with metabolic encephalopathy 2. Acute hypoxic respiratory failure 3. CHF exacerbation 4. Hypokalemia 5. Urinary retention 6. Aspiration pneumonia 7. Leukocytosis 8. C1 fracture, chronic 9. Thrombocytopenia 10. Protein calorie malnutrition 11. DVT and GI prophylaxis 1. Continue thiamine, folic acid and multivitamin by mouth. Ativan IV as needed per CIWA protocol. Fall precautions. Advanced neurochecks. Seizure precautions. Follow PT and OT recommendations. 2. Likely pulmonary edema from CHF exacerbation, aspiration pneumonia concern. CTA of the chest showed bilateral pleural effusions and no PE. Continue IV diuresing. Continue IV antibiotics for concerns of aspiration. DuoNeb as needed for shortness of breath or wheezing. Oxygen per nasal cannula or n onrebreather to maintain an O2 sat greater than 92%. BiPAP as needed. Follow pulmonology consult. 3. Likely cause of hypoxia. Echocardiogram shows EF 30-35% with moderately severe impaired systolic function, global hypokinesis. Continue Lasix 40 mg IV twice a day. Strict ins and outs. Daily weights. Started on metoprolol 25 mg by mouth twice a day and Aldactone 25 mg by mouth daily. Will follow cardiology recommendations. 4. Potassium 2.6 this morning, same as yesterday, 2.4 on repeat. Will repeat 80 mEq of potassium IV. Follow-up potassium level at 5 PM. Also given magnesium be IV. We'll follow nephrology consult. 5. Continue Flomax 0.4 mg by mouth daily. Bladder scan as needed. Voiding trial and Benson catheter as needed. Monitor ins and outs closely. 6. T-max 100.1F on 01/24/2019 with leukocytosis as high as 47.4. Continue Unasyn 3 g IV every 6 hours. Tylenol as needed for fever. Continue DuoNeb, albuterol as needed for shortness of breath and wheezing. Suctioning as needed, maintain oxygenation via nasal cannula/nonrebreather/BiPAP. Blood cultures negative at 96 hours. Patient underwent video swallow, cleared for pured diet. Follow pulmonology recommendations. 7. 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 He has been previously evaluated by hematology and lost to follow-up. I have discussed the case with Dr. Braga, nothing to do inpatient, follow-up in the outpatient setting. 8. Pain management with Tylenol or naproxen as needed. Evaluated by neurosurg fausto at [facility], cleared for chronic fracture. Advised to wear c-collar at all times. 9. Platelet count of 121. This is likely secondary to alcohol abuse. Will trend his platelets given that patient is on Lovenox. 10. BMI 21.6 with low albumin. Add oral supplementation. 11. Lovenox. Protonix by mouth. Continue IV diuresis for pleural effusion, new onset systolic CHF, cardiology on consult. Continue IV antibiotics for treatment of possible aspiration pneumonia. Cleared for diet by speech therapy. Pulmonology consulted for change in respiratory status, low threshold for intubation. Patient has poor overall prognosis due to multiple comorbid conditions.
[2019-01-26 18:33] LABS: Magnesium 2.4 mg/dL (1.6-2.3); Potassium 3.5 mmol/L (3.5-5.1)
[2019-01-26] MEDS: METOPROLOL TARTRATE 25 MG TAB PO SCH (21:39)
[2019-01-27] MEDS: ACETAMINOPHEN TAB 500 MG TAB PO SCH ×4 (00:09→17:48)
[2019-01-27] MEDS: AMPICILLIN-SULBACTAM 3 GM in SODIUM CHLORIDE 0.9% 100 ML IVPB SCH ×4 (02:28→19:25)
[2019-01-27] MEDS: IPRATROPIUM-ALBUTEROL 3 ML NEB INHALATION SCH ×4 (08:59→20:43)
[2019-01-27] MEDS: FUROSEMIDE 10 MG/ML 4 ML VIAL IV SCH ×2 (09:12→21:59)
[2019-01-27] MEDS: METOPROLOL TARTRATE 25 MG TAB PO SCH ×2 (09:12→21:59)
[2019-01-27] MEDS: PANTOPRAZOLE 40 MG TABLET PO SCH (09:12)
[2019-01-27] MEDS: SPIRONOLACTONE 25 MG TAB PO SCH (09:12)
[2019-01-27] MEDS: ENOXAPARIN 40 MG/0.4 ML SYRINGE SQ SCH (09:12)
[2019-01-27 09:17] LABS: Anisocytosis Slight; HCT 38.8 % (39.0-53.0); HGB 12.3 gm/dL (13.0-17.5); Hypochromasia Slight; MCHC 31.8 g/dL (31.0-37.0); MCV 91.2 fL (80.0-100.0); Mean Platelet Volume 13.4; Platelet Count 123 k/uL (150-450); RBC 4.26 m/uL (4.30-5.90); RDW 16.1 % (11.5-15.5)
[2019-01-27 09:20] LABS: Anion Gap 9 mmol/L; Blood Urea Nitrogen 30 mg/dL (9-20); Calcium 8.7 mg/dL (8.4-10.2); Carbon Dioxide 33 mmol/L (22-30); Chloride 108 mmol/L (98-107); Glucose 127 mg/dL (74-99); Magnesium 2.1 mg/dL (1.6-2.3); Potassium 3.2 mmol/L (3.5-5.1); Sodium 150 mmol/L (137-145)
[2019-01-27] MEDS ORDERED: LISINOPRIL 20 MG TAB PO STA (12:16)
--- NOTE | 2019-01-27 12:19 | P.PN ---
Subjective Progress Note Date: 01/27/19 The patient seen and examined at bedside currently receiving breathing treatment, per nursing no signs of alcohol withdrawal. Patient previously not on any supplemental oxygen currently at 8 L via nasal cannula down from 10 L yesterday. Having good urine output diuresis well. Morning labs are off today serum sodium 150 serum potassium 3.2 magnesium 2.1. Patient was apparently lethargic for the night nurse but has been up awake and alert since this morning, otherwise no acute events overnight Objective - Vital Signs Vital signs: Vital Signs Temp 97.7 F 01/27/19 07:00 Pulse 80 01/27/19 09:19 Resp 14 01/27/19 07:00 BP 162/87 01/27/19 07:00 Pulse Ox 97 01/27/19 07:00 Intake & Output 01/26/19 01/27/19 01/27/19 18:59 06:59 18:59 Intake Total 50 118 Output Total 1800 950 400 Balance -1800 -900 -282 Weight 53.524 kg Intake: Oral 50 118 Output: Urine 1800 950 400 Other: Voiding Method Indwelling Catheter Indwelling Catheter # Bowel Movements 0 - Exam Constitutional: Awake and alert, conversant, pleasant Eyes: Anicteric sclerae, moist conjunctiva, no lid-lag, PERRLA ENMT: NC/AT,Oropharynx clear, no erythema, exudates Neck:Supple, FROM, no masses, or JVD, No carotid bruits; No thyromegaly Lungs: Diminished in the bases, coarse breath sounds, mildly labored on 8 L nasal cannula Cardiovascular: Heart regular in rate and rhythm, No murmurs, gallops, or rubs no peripheral edema Abdominal: Soft Nontender, nom distended, no guarding, no rebound or rigidity, Normoactive bowel sounds No hepatomegaly, No splenomegaly, No palpable mass No abdominal wall hernia noted Skin: Normal temperature, tone, texture, turgor, No induration No subcutaneous nodules, No rash, lesions, No ulcers Extremities:No digital cyanosis No clubbing, Pedal pulses intact and symmetrical Radial pulses intact and symmetrical Normal gait and station, No calf tenderness Psychiatric: Alert and oriented to person, place and time, Appropriate affect Intact judgement Neuro: Muscles Strength 5/5 in all 4 extremities, Sensation to light touch grossly present throughout, Cranial nerves II-XII grossly intact. No focal sensory deficits - Labs CBC & Chem 7: 01/27/19 08:19 01/28/19 07:03 Labs: Abnormal Lab Results - Last 24 Hours (Table) 01/26/19 01/27/19 01/27/19 Range/Units 18:06 08:19 08:19 WBC 28.0 H (3.8-10.6) k/uL RBC 4.26 L (4.30-5.90) m/uL Hgb 12.3 L (13.0-17.5) gm/dL Hct 38.8 L (39.0-53.0) % RDW 16.1 H (11.5-15.5) % Plt Count 123 L (150-450) k/uL Sodium 150 H (137-145) mmol/L Potassium 3.2 L (3.5-5.1) mmol/L Chloride 108 H (98-107) mmol/L Carbon Dioxide 33 H (22-30) mmol/L BUN 30 H (9-20) mg/dL Glucose 127 H (74-99) mg/dL Magnesium 2.4 H (1.6-2.3) mg/dL Microbiology - Last 24 Hours (Table) 01/22/19 01:15 Blood Culture - Preliminary Blood No Growth after 120 hours Assessment and Plan (1) Acute respiratory failure with hypoxemia Narrative/Plan: * Secondary to bilateral pleural effusion, pulmonary edema due to acute systolic CHF exacerbation * Continue supplemental oxygen currently at 8 L via nasal cannula * Continue breathing treatments as needed * On chest ultrasound bilateral Pleural effusion 2.2 and 5.5 cm on the right and left respectively Current Visit: Yes Status: Acute Code(s): J96.01 - ACUTE RESPIRATORY FAILURE WITH HYPOXIA SNOMED Code(s): 493418775 (2) Acute systolic CHF (congestive heart failure) Narrative/Plan: * Elevated NT proBNP 12984, echocardiogram showed severe global hypokinesis marcher severely impaired LV at at 30-35% ejection fraction with mild MR and TR * Continue diuresis with Lasix IV every 12 hours * Continue metoprolol 25 mg twice a day, continue Aldactone 25 mg by mouth daily, will add lisinopril 40 mg daily to optimize treatment and improve blood pressure control * Continue strict I's and O's, daily weights, initiate 1 L fluid restriction Current Visit: Yes Status: Acute Code(s): I50.21 - ACUTE SYSTOLIC (CONGESTIVE) HEART FAILURE SNOMED Code(s): 686929847 (3) Hypokalemia Narrative/Plan: * Potassium at 3.2 today continue replacement protocol Current Visit: Yes Status: Acute Code(s): E87.6 - HYPOKALEMIA SNOMED Code(s): 48780564 (4) Alcohol withdrawal Narrative/Plan: * Continue thiamine, folic acid and multivitamin by mouth. * Ativan IV as needed per CIVT protocol. Fall precautions. * Advanced neurochecks. Seizure precautions. 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 He has been previously evaluated by hematology and lost to follow-up. * Previously discussed the case with Dr. Braga, nothing to do inpatient, follow-up in the outpatient setting Current Visit: No Status: Acute Priority: Medium Code(s): D72.829 - ELEVATED WHITE BLOOD CELL COUNT, UNSPECIFIED SNOMED Code(s): 632110001 (6) Aspiration pneumonia Narrative/Plan: * Continue Unasyn 3 g IV every 6 hours. Tylenol as needed for fever. * Continue DuoNeb, albuterol as needed for shortness of breath and wheezing. Suctioning as needed, maintain oxygenation via nasal cannula/nonrebreather/BiPAP. * Blood cultures negative at 96 hours. * Patient underwent video swallow, cleared for pured diet. Follow pulmonology recommendations. Current Visit: Yes Status: Acute Code(s): J69.0 - PNEUMONITIS DUE TO INHALATION OF FOOD AND VOMIT SNOMED Code(s): 924350873
[2019-01-27] MEDS: MULTIVITAMINS, THERA 1 EACH TAB PO SCH (12:58)
[2019-01-27] MEDS: FOLIC ACID 1 MG TAB PO SCH (12:58)
[2019-01-27] MEDS: THIAMINE 100 MG TAB PO SCH ×2 (12:58→16:49)
[2019-01-27] MEDS: POTASSIUM CHLORIDE ER 20 MEQ TAB.ER PO SCH ×4 (15:43→19:25)
--- NOTE | 2019-01-27 15:59 | CONS ---
CONSULTATION REASON FOR CONSULT: Hyponatremia. HISTORY OF PRESENT ILLNESS: Patient is an 84-year-old male who was admitted to the hospital initially with neck pain. He was found to have a C1 fracture and transferred to [facility] from where he was cleared by Neurosurgery and transferred back to [facility]. The patient does have a history of alcohol abuse. The patient was found to have cardiomyopathy with ejection fraction of 30%-35%. He was also found to be in CHF recently and he is currently being diuresed. His serum potassium was noted to be 2.6 mEq/L and currently patient is being replaced and it is up to 3.2. Initial serum potassium was 4.4. Patient is maintained on Aldactone, JAMAAL inhibitors, and potassium supplementation. I also see NSAIDs on his med list. Blood pressure has been on the higher side. Patient denies any previous history of hypokalemia. He denies any ongoing diarrhea at this time. Review of previous labs shows a potassium of 5.2 in 2017. PAST MEDICAL HISTORY: Significant for colon cancer, osteoarthritis, BPH, prostatic cancer. PAST SURGICAL HISTORY: Bilateral hip arthroplasty. SOCIAL HISTORY: Positive for smoking. No history of drug abuse or alcohol abuse. MEDICATIONS: At home included Restoril, Naprosyn, vitamin C. ALLERGIES: None. REVIEW OF SYSTEMS: As per HPI. Other systems negative. PHYSICAL EXAMINATION: Patient is comfortable, awake. He is not in any acute distress. Blood pressure was 162/87, heart rate 84 per minute. He is afebrile. Examination of the heart, S1, S2. Examination of the lungs, bilateral breath sounds are heard. Decreased breath sounds at bases. Abdomen is soft, nontender. Examination of the lower extremities shows trace edema bilaterally. 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 LABS: Show sodium 150, potassium 3.2, chloride 108, BUN 30, serum creatinine 0.76, magnesium is 2.1, hemoglobin of 12.3 g/dL. ASSESSMENT: 1. Hypokalemia, most likely related to recent diuresis and decrease in oral intake. Given the elevated blood pressures along with the ongoing hypokalemia in spite of use of JAMAAL inhibitors and Aldactone, we need to consider underlying hyperaldosteronism. Patient is already on Aldactone. Therefore, aldosterone renal ratio might not be accurate. However, I will still go ahead and order it. At this time, I would continue with the Aldactone and potassium supplementation. Patient is magnesium replete. I will check a random urine potassium as well. Patient is encouraged to increase oral potassium in his diet as well. 2. Hypernatremia associated with recent diuresis. Add a small amount of D5W and continue with the IV Lasix. Repeat sodium level this evening. 3. Congestive heart failure, acute on top of chronic systolic, currently being diuresed. 4. Cardiomyopathy, possibly alcoholic versus ischemic. Patient is being followed by Cardiology. 5. Hypertension. Rule out primary hyperaldo. PLAN: Check random urine potassium. Check renal aldosterone levels. Continue with potassium supplementation. Add D5W about 30 mL an hour and repeat labs in a.m. Thank you for this consultation. Will continue to follow the patient with you during his hospitalization in plan. MMODL / IJN: [id number] /
[2019-01-27] MEDS: DEXTROSE 5% IN WATER 1,000 ML IV SCH (16:49)
[2019-01-27] MEDS: TAMSULOSIN 0.4 MG CAP.ER.24H PO SCH (17:48)
[2019-01-27 18:20] LABS: Potassium 2.6 mmol/L (3.5-5.1)
--- NOTE | 2019-01-27 18:41 | PN ---
PROGRESS NOTE Mr. Zuniga is comfortable, resting. His breathing is easier. He has a neck collar. His potassium is better but still low at 3.4. I am recommending that we supplement potassium. He has history of alcoholism with withdrawal. His LV function is impaired. Vital signs stable. S1-S2 heard normally. Short systolic murmur noted. Lungs reveal improved air entry. Abdomen and lower extremity exam is unchanged. Plan is supplement potassium. Continue beta william and see how he does. There are no other suggestions from a cardiac standpoint and we will see the patient as needed during his hospitalization. MMODL / IJN: [id number] /
[2019-01-28] MEDS: ACETAMINOPHEN TAB 500 MG TAB PO SCH ×5 (00:16→23:48)
[2019-01-28] MEDS: AMPICILLIN-SULBACTAM 3 GM in SODIUM CHLORIDE 0.9% 100 ML IVPB SCH ×4 (01:12→20:54)
[2019-01-28] MEDS: POTASSIUM CHLORIDE ER 20 MEQ TAB.ER PO SCH ×2 (01:14→02:15)
[2019-01-28 07:47] LABS: Anion Gap 5 mmol/L; Blood Urea Nitrogen 27 mg/dL (9-20); Calcium 8.8 mg/dL (8.4-10.2); Carbon Dioxide 37 mmol/L (22-30); Chloride 105 mmol/L (98-107); Glucose 124 mg/dL (74-99); Potassium 3.7 mmol/L (3.5-5.1); Sodium 147 mmol/L (137-145)
[2019-01-28] MEDS: IPRATROPIUM-ALBUTEROL 3 ML NEB INHALATION SCH ×4 (08:19→20:17)
[2019-01-28] MEDS: METOPROLOL TARTRATE 25 MG TAB PO SCH ×2 (10:09→20:42)
[2019-01-28] MEDS: ENOXAPARIN 40 MG/0.4 ML SYRINGE SQ SCH (10:09)
[2019-01-28] MEDS: SPIRONOLACTONE 25 MG TAB PO SCH (10:10)
[2019-01-28] MEDS: LISINOPRIL 20 MG TAB PO SCH (10:10)
[2019-01-28] MEDS: PANTOPRAZOLE 40 MG TABLET PO SCH (10:10)
[2019-01-28] MEDS: THIAMINE 100 MG TAB PO SCH ×2 (10:11→17:51)
[2019-01-28] MEDS: FUROSEMIDE 10 MG/ML 4 ML VIAL IV SCH ×2 (10:11→20:41)
[2019-01-28] MEDS: MULTIVITAMINS, THERA 1 EACH TAB PO SCH (10:11)
[2019-01-28] MEDS: FOLIC ACID 1 MG TAB PO SCH (10:11)
--- NOTE | 2019-01-28 12:35 | P.PN ---
Subjective Progress Note Date: 01/28/19 patient seen and examined at bedside. Wearing 8 L nasal cannula, no more reports of confusion or lethargy patient has been awake and alert, reports poor sleep last night. Continues to diurese well with Lasix weight down to 60 kg. no acute events overnight, patient has no complaints Objective - Vital Signs Vital signs: Vital Signs Temp 97.7 F 01/28/19 07:00 Pulse 76 01/28/19 11:39 Resp 14 01/28/19 07:00 BP 144/83 01/28/19 07:00 Pulse Ox 91 L 01/28/19 07:00 Intake & Output 01/27/19 01/28/19 01/28/19 18:59 06:59 18:59 Intake Total 673 236 Output Total 800 975 Balance -127 -739 Intake: Oral 673 236 Output: Urine 800 975 Other: Voiding Method Indwelling Catheter Indwelling Catheter Indwelling Catheter - Exam Constitutional: Awake and alert, conversant, pleasant Eyes: Anicteric sclerae, moist conjunctiva, no lid-lag, PERRLA ENMT: NC/AT,Oropharynx clear, no erythema, exudates Neck:Supple, FROM, no masses, or JVD, No carotid bruits; No thyromegaly Lungs: Diminished in the bases clear on the right, coarse adventitious sounds on the left, unlabored on 8 L nasal cannula Cardiovascular: Heart regular in rate and rhythm, No murmurs, gallops, or rubs no peripheral edema Abdominal: Soft Nontender, nom distended, no guarding, no rebound or rigidity, Normoactive bowel sounds No hepatomegaly, No splenomegaly, No palpable mass No abdominal wall hernia noted Skin: Normal temperature, tone, texture, turgor, No induration No subcutaneous nodules, No rash, lesions, No ulcers Extremities:No digital cyanosis No clubbing, Pedal pulses intact and symmetrical Radial pulses intact and symmetrical Normal gait and station, No calf tenderness Psychiatric: Alert and oriented to person, place and time, Appropriate affect Intact judgement Neuro: Muscles Strength 5/5 in all 4 extremities, Sensation to light touch fredy ssly present throughout, Cranial nerves II-XII grossly intact. No focal sensory deficits - Labs CBC & Chem 7: 01/27/19 08:19 01/28/19 07:03 Labs: Abnormal Lab Results - Last 24 Hours (Table) 01/27/19 01/27/19 01/28/19 Range/Units 17:37 20:23 07:03 Sodium 148 H 147 H (137-145) mmol/L Potassium 2.6 L* 3.2 L (3.5-5.1) mmol/L Carbon Dioxide 36 H 37 H (22-30) mmol/L BUN 27 H (9-20) mg/dL Glucose 124 H (74-99) mg/dL Phosphorus 2.0 L (2.5-4.5) mg/dL Microbiology - Last 24 Hours (Table) 01/22/19 01:15 Blood Culture - Final Blood No Growth after 144 hours Assessment and Plan (1) Acute respiratory failure with hypoxemia Narrative/Plan: * Secondary to bilateral pleural effusion, pulmonary edema due to acute systolic CHF exacerbation * Continue supplemental oxygen currently at 8 L via nasal cannula * Continue breathing treatments as needed * On chest ultrasound bilateral Pleural effusion 2.2 and 5.5 cm on the right and left respectively Current Visit: Yes Status: Acute Code(s): J96.01 - ACUTE RESPIRATORY FAILURE WITH HYPOXIA SNOMED Code(s): 167311963 (2) Acute systolic CHF (congestive heart failure) Narrative/Plan: * Elevated NT proBNP 09926, echocardiogram showed severe global hypokinesis with severely impaired LV at at 30-35% ejection fraction with mild MR and TR * Continue diuresis with Lasix IV every 12 hours * Continue metoprolol 25 mg twice a day, continue Aldactone 25 mg by mouth daily, continue with lisinopril 40 mg daily to optimize treatment and improve blood pressure control * Continue strict I's and O's, daily weights, initiate 1 L fluid restriction Current Visit: Yes Status: Acute Code(s): I50.21 - ACUTE SYSTOLIC (CONGESTIVE) HEART FAILURE SNOMED Code(s): 082306078 (3) Hypokalemia Narrative/Plan: * Potassium at 3.7 today continue replacement protocol Current Visit: Yes Status: Resolved Code(s): E87.6 - HYPOKALEMIA SNOMED Code(s): 38158386 (4) Alcohol withdrawal Narrative/Plan: * Continue thiamine, folic acid and multivitamin by mouth. * Ativan IV as needed per CIWA protocol. Fall precautions. * Advanced neurochecks. Seizure precautions. 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 He has been previously evaluated by hematology and lost to follow-up. * Previously discussed the case with Dr. Braga, nothing to do inpatient, follow-up in the outpatient setting Current Visit: No Status: Acute Priority: Medium Code(s): D72.829 - ELEVATED WHITE BLOOD CELL COUNT, UNSPECIFIED SNOMED Code(s): 124558602 (6) Aspiration pneumonia Narrative/Plan: * Continue Unasyn 3 g IV every 6 hours. Tylenol as needed for fever. * Continue DuoNeb, albuterol as needed for shortness of breath and wheezing. Suctioning as needed, maintain oxygenation via nasal cannula/nonrebreather/BiPAP. * Blood cultures negative at 96 hours. * Patient underwent video swallow, cleared for pured diet. Follow pulmonology recommendations. Current Visit: Yes Status: Acute Code(s): J69.0 - PNEUMONITIS DUE TO INHALATION OF FOOD AND VOMIT SNOMED Code(s): 207772901 (7) Essential hypertension Narrative/Plan: * Blood pressure much more controlled since adding lisinopril yesterday continue current regimen * Renal working up secondary causes such as primary hyperaldosteronism Current Visit: Yes Status: Acute Code(s): I10 - ESSENTIAL (PRIMARY) HYPERTENSION SNOMED Code(s): 60585955 Plan: Anticipated discharge 1-2 days
--- NOTE | 2019-01-28 13:57 | XR ---
EXAMINATION TYPE: XR chest 1V DATE OF EXAM: 01/28/2019 COMPARISON: Prior chest x-ray 01/26/2019 HISTORY: Congestive heart failure TECHNIQUE: Single frontal view of the chest is obtained. FINDINGS: There is some improvement in the interstitium, aeration within the lungs. No evident pneum othorax. There may be small basilar effusions. Heart size is stable, aorta is dense. IMPRESSION: Improvement in volume status, aeration.
--- NOTE | 2019-01-28 14:33 | PN ---
PROGRESS NOTE Patient is seen for followup for hypokalemia and hypernatremia. The patient is currently being diuresed. He is maintained on IV Lasix and he is also maintained on JAMAAL inhibitors. The patient's potassium was as low as 2.6 mEq/L. He has been replaced. Serum creatinine is 0.7 mg/dL. The patient's blood pressure has been elevated and given the underlying significant hypokalemia in spite of JAMAAL inhibitors and Aldactone, there was concern for possible hyperaldosteronism. Aldosterone and renal levels have been ordered. They are currently pending. Patient's sodium was 150 mg/L yesterday. He is maintained on a small amount of D5W and serum sodium is improved to 147. PHYSICAL EXAMINATION: Patient is comfortable, awake, not in any acute distress. Blood pressure is 144/83, heart rate is 72 per minute. He is afebrile. Examination of the heart: S1, S2. Examination of the lungs: Decreased breath sounds at bases. Minimal basal crackles are heard. Abdomen is soft, nontender. Examination lower extremities shows no significant edema bilaterally. LABS: Show sodium 147, potassium 3.7, BUN 27, serum creatinine 0.77. ASSESSMENT: 1. Hypokalemia most likely secondary to diuretics. Continue with the potassium replacement and JAMAAL inhibitors and I will follow up on the results of the aldosterone and renal levels. Continue with the spironolactone as well. 2. Hypernatremia secondary to free water deficit, now improved. 3. Congestive heart failure, volume overload, also improving. Repeat chest x-ray today. Consider decreasing the Lasix to p.o. tomorrow. 4. Cardiomyopathy, ejection fraction 30-35 percent. PLAN: Continue with JAMAAL inhibitors. Replace potassium. Repeat labs in a.m. Follow up on aldosterone and renal levels. Switch Lasix to p.o. tomorrow and repeat a chest x-ray. MMODL / IJN: [id number] /
[2019-01-28] MEDS: TAMSULOSIN 0.4 MG CAP.ER.24H PO SCH (17:51)
[2019-01-28] MEDS: DEXTROSE 5% IN WATER 1,000 ML IV SCH (18:00)
[2019-01-29] MEDS: AMPICILLIN-SULBACTAM 3 GM in SODIUM CHLORIDE 0.9% 100 ML IVPB SCH ×2 (01:59→09:40)
[2019-01-29] MEDS: ACETAMINOPHEN TAB 500 MG TAB PO SCH ×3 (05:48→18:39)
[2019-01-29] MEDS: IPRATROPIUM-ALBUTEROL 3 ML NEB INHALATION SCH ×4 (07:16→22:32)
[2019-01-29] MEDS: FUROSEMIDE 10 MG/ML 4 ML VIAL IV SCH (07:56)
[2019-01-29] MEDS: PANTOPRAZOLE 40 MG TABLET PO SCH (07:56)
[2019-01-29] MEDS: ENOXAPARIN 40 MG/0.4 ML SYRINGE SQ SCH (07:56)
[2019-01-29] MEDS: LISINOPRIL 20 MG TAB PO SCH (07:56)
[2019-01-29] MEDS: METOPROLOL TARTRATE 25 MG TAB PO SCH ×2 (07:57→22:31)
[2019-01-29] MEDS: FOLIC ACID 1 MG TAB PO SCH (07:57)
[2019-01-29] MEDS: SPIRONOLACTONE 25 MG TAB PO SCH (07:57)
[2019-01-29 08:13] LABS: ALT 31 U/L (21-72); AST 47 U/L (17-59); Albumin 2.6 g/dL (3.5-5.0); Alkaline Phosphatase 68 U/L (38-126); Blood Urea Nitrogen 22 mg/dL (9-20); Calcium 8.4 mg/dL (8.4-10.2); Chloride 97 mmol/L (98-107); Glucose 106 mg/dL (74-99); Potassium 3.1 mmol/L (3.5-5.1); Sodium 142 mmol/L (137-145); Total Bilirubin 0.6 mg/dL (0.2-1.3); Total Protein 5.2 g/dL (6.3-8.2)
[2019-01-29 08:14] LABS: HGB 11.9 gm/dL (13.0-17.5); Hypochromasia Slight; MCH 28.3 pg (25.0-35.0); MCHC 31.4 g/dL (31.0-37.0); MCV 90.2 fL (80.0-100.0); Mean Platelet Volume 14.1; Platelet Count 125 k/uL (150-450); RBC 4.21 m/uL (4.30-5.90); WBC 29.7 k/uL (3.8-10.6)
[2019-01-29 08:19] LABS: Anion Gap 4 mmol/L
[2019-01-29 09:06] LABS: Band Neutrophils % 1 %; Eosinophils # (M) 0.89 k/uL (0-0.7); Lymphocytes # (M) 2.97 k/uL (1.0-4.8); Metamyelocytes % 1 %; Monocytes # (M) 8.32 k/uL (0-1.0); Myelocytes % 1 %; Neutrophils % (M) 58 %; Nucleated Red Blood Cells 0 /100 WBC (0-0); Total Cells Counted 200
[2019-01-29 09:09] LABS: Anisocytosis (M) Present
[2019-01-29 09:51] LABS: Carbon Dioxide 41 mmol/L (22-30)
[2019-01-29] MEDS ORDERED: POTASSIUM CHLORIDE ER 20 MEQ TAB.ER PO STA (09:59)
--- NOTE | 2019-01-29 10:04 | P.PN ---
Subjective Patient is seen in follow-up for electrolyte imbalance. Potassium is 3.1 today. He is also noted to be alkalotic with a bicarb level of 41 today. Currently resting in bed. Maintain on Lasix 40 mg IV twice daily. Denies chest pain or shortness of breath. Renal function is at baseline. Vital signs are stable. General: The patient appeared well nourished and normally developed. HEENT: Head exam is unremarkable. Neck is without jugular venous distension. LUNGS: Breath sounds decreased. HEART: Rate and Rhythm are regular. First and second heart sounds normal. No murmurs, rubs or gallops. ABDOMEN: Abdominal exam reveals normal bowel sounds. Non-tender and non- distended. No evidence of peritonitis. EXTREMITITES: No clubbing, cyanosis, or edema. Objective - Vital Signs Vital signs: Vital Signs Temp 98.1 F 01/29/19 07:26 Pulse 74 01/29/19 07:26 Resp 14 01/29/19 03:41 BP 112/67 01/29/19 07:26 Pulse Ox 95 01/29/19 07:26 Intake & Output 01/28/19 01/29/19 01/29/19 18:59 06:59 18:59 Intake Total 1254 100 Output Total 800 800 Balance 454 -700 Intake: Intake, IV Titration 900 Amount Ampicillin-Sulbactam 3 gm 100 In Sodium Chloride 0.9% 100 ml @ 200 mls/hr IVPB Q6H [facility] Rx#:[id number] Dextrose 5% in Water 1, 800 000 ml @ 30 mls/hr IV . Q24H [facility] Rx#:[id number] Oral 354 100 Output: Urine 800 800 Other: Voiding Method Indwelling Catheter Indwelling Catheter - Labs CBC & Chem 7: 01/29/19 07:33 01/29/19 07:33 Labs: Abnormal Lab Results - Last 24 Hours (Table) 01/29/19 01/29/19 Range/Units 07:33 07:33 WBC 29.7 H (3.8-10.6) k/uL RBC 4.21 L (4.30-5.90) m/uL Hgb 11.9 L (13.0-17.5) gm/dL Hct 38.0 L (39.0-53.0) % RDW 16.0 H (11.5-15.5) % Plt Count 125 L (150-450) k/uL Neutrophils # (Manual) 17.50 H (1.3-7.7) k/uL Monocytes # (Manual) 8.32 H (0-1.0) k/uL Eosinophils # (Manual) 0.89 H (0-0.7) k/uL Metamyelocytes # (Man) 0.30 H (0) k/uL Myelocytes # (Manual) 0.30 H (0) k/uL Potassium 3.1 L (3.5-5.1) mmol/L Chloride 97 L (98-107) mmol/L Carbon Dioxide 41 H* (22-30) mmol/L BUN 22 H (9-20) mg/dL Glucose 106 H (74-99) mg/dL Total Protein 5.2 L (6.3-8.2) g/dL Albumin 2.6 L (3.5-5.0) g/dL Assessment and Plan Plan: Assessment: 1. Hypokalemia secondary to diuresis. 2. Metabolic alkalosis secondary to volume contraction. 3. Volume overload. Improved with diuresis. 4. Hyponatremia secondary to lack of oral water intake. Better. 5. Benign hypertension. Controlled. Rule out hyperaldosteronism. Plan: Replace potassium. 60 mg today. Maintain current antihypertensives. Decrease Lasix to 40 mg IV once daily. Repeat electrolytes in the morning. Follow-up renin and aldosterone levels. Continue D5W at current rate for now.
[2019-01-29] MEDS: THIAMINE 100 MG TAB PO SCH ×2 (11:34→18:40)
[2019-01-29] MEDS: MULTIVITAMINS, THERA 1 EACH TAB PO SCH (11:34)
[2019-01-29] MEDS: TAMSULOSIN 0.4 MG CAP.ER.24H PO SCH (18:40)
[2019-01-29] MEDS: DEXTROSE 5% IN WATER 1,000 ML IV SCH (22:49)
[2019-01-30] MEDS: ACETAMINOPHEN TAB 500 MG TAB PO SCH ×5 (00:32→23:40)
--- NOTE | 2019-01-30 07:05 | PN ---
PROGRESS NOTE DATE OF SERVICE: 01/29/2019 PRESENTING COMPLAINT: Tired. INTERVAL HISTORY: Patient presented with fluid overload. Electrolyte abnormalities. Did tolerate some diet. Sitting up, getting IV Lasix. Electrolytes are being replaced. Does feel a bit tired. REVIEW OF SYSTEMS: Done for constitutional, cardiovascular. GI, pulmonary; relevant findings as above. MEDICATIONS: Current medications are reviewed that include DuoNeb, D5W, Lovenox, IV Lasix, Zestril, Lopressor, naproxen p.r.n. Aldactone, Flomax, Thiamine. PHYSICAL EXAMINATION: On examination, temperature 98.2, pulse 79, respiration 14, blood pressure 110/64, pulse ox 94% on 6 L. GENERAL APPEARANCE: Sitting up, awake. EYES: Pupils equal. Conjunctivae pale. NECK: JVD not raised. Mass not palpable. RESPIRATORY: Effort increased. LUNGS: Decreased breath sounds. CARDIOVASCULAR: First and second sounds normal. Some edema. ABDOMEN: Soft, nontender. PSYCH: The patient is answering simple questions. INVESTIGATIONS: White count 29.7, hemoglobin 11.9, platelets 125. Potassium 3.1. Bicarb 41. BUN 22, creatinine 0.66. Albumin 2.6. ASSESSMENT: 1. Acute on chronic congestive heart failure exacerbation from systolic dysfunction, ejection fraction 30% to 35%. 2. Acute hypoxic respiratory failure secondary to pleural effusion. 3. Bilateral pleural effusion from congestive heart failure. 4. Severe hypokalemia, being replaced. 5. CML, being followed as an outpatient by Dr. Braga. 6. Aspiration pneumonia, clinically improving. 7. Essential hypertension. 8. Primary osteoarthritis. 9. Chronic nicotine dependence. Patient is a cigarette smoker. 10.Chronic alcohol use of 3 beers per day. 11.Metabolic alkalosis possibly from volume contraction. 12.Hypoalbuminemia probably from moderate protein calorie malnutrition. The patient has got wasting of muscles and decreased oral intake. 13.Persistent atrial fibrillation. PLAN: Continue current medication and treatment plan. Will send off a UA in the morning. The patient probably is volume contracted. Sodium was 150 two days ago. We will discuss with Dr. Choi if we can on the Lasix. Overall prognosis guarded. Will discuss with Dr. Choi tomorrow. Will follow. MMODL / IJN: [id number] /
[2019-01-30 08:09] LABS: Anion Gap 4 mmol/L; Blood Urea Nitrogen 24 mg/dL (9-20); Calcium 8.5 mg/dL (8.4-10.2); Carbon Dioxide 37 mmol/L (22-30); Chloride 98 mmol/L (98-107); Glucose 90 mg/dL (74-99); Magnesium 1.5 mg/dL (1.6-2.3); Potassium 3.4 mmol/L (3.5-5.1); Sodium 139 mmol/L (137-145)
[2019-01-30] MEDS: IPRATROPIUM-ALBUTEROL 3 ML NEB INHALATION SCH ×4 (08:09→20:21)
[2019-01-30] MEDS: ENOXAPARIN 40 MG/0.4 ML SYRINGE SQ SCH (10:33)
[2019-01-30] MEDS: FUROSEMIDE 10 MG/ML 4 ML VIAL IV SCH (10:34)
[2019-01-30] MEDS: METOPROLOL TARTRATE 25 MG TAB PO SCH ×2 (10:34→20:44)
[2019-01-30] MEDS: PANTOPRAZOLE 40 MG TABLET PO SCH (10:34)
[2019-01-30] MEDS: LISINOPRIL 20 MG TAB PO SCH (10:34)
[2019-01-30] MEDS: SPIRONOLACTONE 25 MG TAB PO SCH (10:35)
[2019-01-30] MEDS ORDERED: POTASSIUM CHLORIDE ER 20 MEQ TAB.ER PO STA (11:02)
--- NOTE | 2019-01-30 11:36 | P.PN ---
Subjective Patient is seen in follow-up for electrolyte imbalance. Potassium is 3.4 today. Alkalosis is improved. Currently resting in bed. Maintain on Lasix 40 mg IV daily. Denies chest pain or shortness of breath. Renal function is at baseline. Denies chest pain or shortness of breath. Vital signs are stable. General: The patient appeared well nourished and normally developed. HEENT: Head exam is unremarkable. Neck is without jugular venous distension. LUNGS: Breath sounds decreased. HEART: Rate and Rhythm are regular. First and second heart sounds normal. No murmurs, rubs or gallops. ABDOMEN: Abdominal exam reveals normal bowel sounds. Non-tender and non- distended. No evidence of peritonitis. EXTREMITITES: No clubbing, cyanosis, or edema. Objective - Vital Signs Vital signs: Vital Signs Temp 98.2 F 01/30/19 07:00 Pulse 72 01/30/19 08:20 Resp 15 01/30/19 07:00 BP 111/69 01/30/19 07:00 Pulse Ox 94 L 01/30/19 08:09 Intake & Output 01/29/19 01/30/19 01/30/19 18:59 06:59 18:59 Intake Total 530 100 Output Total 400 Balance 130 100 Weight 53.524 kg Intake: Intake, IV Titration 300 Amount Dextrose 5% in Water 1, 300 000 ml @ 30 mls/hr IV . Q24H [facility] Rx#:[id number] Oral 230 100 Output: Urine 400 Other: Voiding Method Indwelling Catheter Indwelling Catheter Indwelling Catheter - Labs CBC & Chem 7: 01/29/19 07:33 01/30/19 07:29 Labs: Abnormal Lab Results - Last 24 Hours (Table) 01/30/19 Range/Units 07:29 Potassium 3.4 L (3.5-5.1) mmol/L Carbon Dioxide 37 H (22-30) mmol/L BUN 24 H (9-20) mg/dL Magnesium 1.5 L (1.6-2.3) mg/dL Assessment and Plan Plan: Assessment: 1. Hypokalemia secondary to diuresis. 2. Metabolic alkalosis secondary to volume contraction. Better. 3. Volume overload. Improved with diuresis. 4. Hyponatremia secondary to lack of oral water intake. Better. 5. Benign hypertension. Controlled. Aldosterone level low. However this may not be accurate in the setting of Aldactone and lisinopril. 6. Hypomagnesemia secondary to diuresis and poor oral intake. Plan: Replace potassium. 60 mg today. Maintain current antihypertensives. Maintain Lasix 40 mg IV once daily. Can be transitioned over to oral tomorrow. Discontinue D5W. Replace magnesium. 3 g IV today.
[2019-01-30] MEDS: MAGNESIUM SULFATE-D5W PMX 1 GM in DEXTROSE/WATER 1 100ML.BAG IVPB SCH ×2 (11:50→13:06)
[2019-01-30] MEDS ORDERED: POTASSIUM BICARBONATE/CIT AC 20 MEQ TABLET.EFF PO STA (11:54)
[2019-01-30] MEDS: MULTIVITAMINS, THERA 1 EACH TAB PO SCH (13:05)
[2019-01-30] MEDS: THIAMINE 100 MG TAB PO SCH ×2 (13:05→19:46)
[2019-01-30] MEDS: FOLIC ACID 1 MG TAB PO SCH (13:06)
[2019-01-30 15:16] VITALS: RESP 16
[2019-01-30] MEDS: TAMSULOSIN 0.4 MG CAP.ER.24H PO SCH (19:46)
[2019-01-30] MEDS: MAGNESIUM OXIDE 400 MG TAB PO SCH (23:48)
[2019-01-31] MEDS: MAGNESIUM SULFATE-D5W PMX 1 GM in DEXTROSE/WATER 1 100ML.BAG IVPB SCH (01:13)
[2019-01-31] MEDS: ACETAMINOPHEN TAB 500 MG TAB PO SCH ×2 (05:16→12:42)
--- NOTE | 2019-01-31 07:42 | PN ---
PROGRESS NOTE DATE OF SERVICE: 01/30/2019 PRESENTING COMPLAINT: Tired. INTERVAL HISTORY: Patient presented with fluid overload, electrolyte abnormalities. Appetite is much improved. Did walk a few steps, sit up on a chair, on IV Lasix. Overall feeling better. REVIEW OF SYSTEMS: Done for constitutional, cardiovascular, GI, pulmonary; relevant findings as above. CURRENT MEDICATIONS: Current medications are reviewed that include IV Lasix. PHYSICAL EXAMINATION: On examination, temperature 97.5, pulse 73, respirations 16, blood pressure 107/68, pulse ox 94% on 6 L. GENERAL APPEARANCE: Sitting up, awake. EYES: Pupils equal. Conjunctivae pale. Nasal cannula in place. NECK: JVD unable to assess. Mass not palpable. RESPIRATORY: Effort increased. LUNGS: Decreased breath sounds. CARDIOVASCULAR: First and second sounds normal. Some edema. ABDOMEN: Soft, nontender. Liver and spleen not palpable. PSYCHIATRY: Answering questions appropriately. INVESTIGATIONS: Potassium 3.4, bicarb 37, BUN 24, creatinine 0.73, magnesium 1.5. ASSESSMENT: 1. Acute on chronic congestive heart failure exacerbation from systolic dysfunction, ejection fraction 30% to 35%. 2. Acute hypoxic respiratory failure secondary to pleural effusion, on nasal cannula. 3. Bilateral pleural effusion from congestive heart failure. 4. Severe hypokalemia, being replaced. 5. 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 6. Aspiration pneumonia, improving. 7. Essential hypertension. 8. Primary osteoarthritis. 9. Chronic nicotine dependence, patient is a cigarette smoker. 10.Chronic alcohol use of 3 beers per day. 11.Metabolic alkalosis probably from volume contraction. 12.Hypoalbuminemia from moderate protein calorie malnutrition. 13.Persistent atrial fibrillation. PLAN: Continue current medication and treatment plan. Potassium being replaced. Magnesium oxide is being added. Will switch patient over to oral Lasix tomorrow. Oxygen to be tapered down. Repeat chest x-ray in the morning. MMODL / IJN: [id number] /
[2019-01-31] MEDS: IPRATROPIUM-ALBUTEROL 3 ML NEB INHALATION SCH ×3 (08:23→15:59)
[2019-01-31 09:06] LABS: Anion Gap 8 mmol/L; Blood Urea Nitrogen 21 mg/dL (9-20); Calcium 8.9 mg/dL (8.4-10.2); Carbon Dioxide 36 mmol/L (22-30); Chloride 98 mmol/L (98-107); Glucose 95 mg/dL (74-99); Magnesium 2.1 mg/dL (1.6-2.3); Potassium 3.6 mmol/L (3.5-5.1); Sodium 142 mmol/L (137-145)
[2019-01-31] MEDS: SPIRONOLACTONE 25 MG TAB PO SCH (10:33)
[2019-01-31] MEDS: ENOXAPARIN 40 MG/0.4 ML SYRINGE SQ SCH (10:33)
[2019-01-31] MEDS: LISINOPRIL 20 MG TAB PO SCH (10:33)
[2019-01-31] MEDS: METOPROLOL TARTRATE 25 MG TAB PO SCH (10:33)
[2019-01-31] MEDS: MAGNESIUM OXIDE 400 MG TAB PO SCH (10:33)
[2019-01-31] MEDS: PANTOPRAZOLE 40 MG TABLET PO SCH (10:33)
[2019-01-31] MEDS ORDERED: FUROSEMIDE 40 MG TAB PO SCH (11:00)
[2019-01-31] MEDS ORDERED: POTASSIUM BICARBONATE/CIT AC 20 MEQ TABLET.EFF PO ONE (11:03)
--- NOTE | 2019-01-31 11:35 | P.PN ---
Subjective Patient is seen in follow-up for electrolyte imbalance. Potassium is 3.6 today. Alkalosis is improved. Currently resting in bed. Maintain on Lasix 40 mg IV daily. Denies chest pain or shortness of breath. Renal function is at baseline. Denies chest pain or shortness of breath. Oral intake is gradually improving. Vital signs are stable. General: The patient appeared well nourished and normally developed. HEENT: Head exam is unremarkable. Neck is without jugular venous distension. LUNGS: Breath sounds decreased. HEART: Rate and Rhythm are regular. First and second heart sounds normal. No murmurs, rubs or gallops. ABDOMEN: Abdominal exam reveals normal bowel sounds. Non-tender and non- distended. No evidence of peritonitis. EXTREMITITES: No clubbing, cyanosis, or edema. Objective - Vital Signs Vital signs: Vital Signs Temp 98.0 F 01/31/19 07:10 Pulse 85 01/31/19 08:35 Resp 16 01/31/19 00:07 BP 114/68 01/31/19 07:10 Pulse Ox 90 L 01/31/19 07:10 Intake & Output 01/30/19 01/31/19 01/31/19 18:59 06:59 18:59 Intake Total 400 100 Output Total 900 600 Balance -500 -500 Intake: Oral 400 100 Output: Urine 900 600 Other: Voiding Method Indwelling Catheter Indwelling Catheter Indwelling Catheter # Bowel Movements 1 - Labs CBC & Chem 7: 01/29/19 07:33 01/31/19 08:00 Labs: Abnormal Lab Results - Last 24 Hours (Table) 01/31/19 Range/Units 08:00 Carbon Dioxide 36 H (22-30) mmol/L BUN 21 H (9-20) mg/dL Assessment and Plan Plan: Assessment: 1. Hypokalemia secondary to diuresis. Better post replacement. 2. Metabolic alkalosis secondary to volume contraction. Better. 3. Volume overload. Improved with diuresis. 4. Hypernatremia secondary to lack of oral water intake. Better. 5. Benign hypertension. Controlled. Aldosterone level low. However this may not be accurate in the setting of Aldactone and lisinopril. 6. Hypomagnesemia secondary to diuresis and poor oral intake. Better post placement. Plan: Replace potassium. 40 mg today. Change Lasix to 40 mg orally once daily. Maintain current antihypertensives. Add maintenance potassium supplementation. Potential discharge today. Repeat basic metabolic panel in 2-3 days postdischa rge. Follow up outpatient in the next 1-2 weeks.
[2019-01-31] MEDS: FOLIC ACID 1 MG TAB PO SCH (12:42)
[2019-01-31] MEDS: MULTIVITAMINS, THERA 1 EACH TAB PO SCH (12:42)
[2019-01-31] MEDS: THIAMINE 100 MG TAB PO SCH (12:43)
[2019-01-31] MEDS: FUROSEMIDE 10 MG/ML 4 ML VIAL IV SCH (13:03)
[2019-01-31 14:39] VITALS: BP 124/68; PULSE 79; TEMP 97.2
--- NOTE | 2019-01-31 16:36 | DS ---
DISCHARGE SUMMARY DATE OF ADMISSION: January 21, 2019. DATE OF DISCHARGE: January 31, 2019. FINAL DIAGNOSES: 1. Acute on chronic congestive heart failure exacerbation from systolic dysfunction EF 30-35 percent. 2. Acute hypoxic respiratory failure secondary to pleural effusion on nasal cannula. 3. Bilateral pleural effusion from congestive heart failure. 4. Severe hypokalemia. 5. 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 6. Aspiration pneumonia, improved. 7. Essential hypertension. 8. Primary osteoarthritis. 9. Chronic nicotine dependence, patient is a cigarette smoker. 10.Chronic alcohol use of 3 12 oz beers per day. 11.Metabolic alkalosis from volume contraction. 12.Hypoalbuminemia from moderate protein calorie malnutrition. 13.Persistent atrial fibrillation. HOSPITAL COURSE: This patient presented with CHF exacerbation. Did require IV Lasix. Electrolytes were off, that were corrected. 2D echo showed EF as above. The patient was seen by speech therapist and yet again today patient has been advanced to a regular diet, but patient needs 1 as to 1 assistance. The patient's pulse ox is running a bit down. The patient is 90% on 4 L. We did attempt arterial blood gas on room air today, but that could not be obtained. The patient able to walk a few steps with assistance and sitting up on a chair. CONSULTATION: Dr. Choi and colleagues from Nephrology. Dr. Steph Winston from Cardiology, Dr. Rangel from Pulmonary Critical Care. PHYSICAL EXAMINATION: VITAL SIGNS: Temperature 97.2, pulse 79, respiratory rate 16, blood pressure 120/68, pulse ox 98% on 4 L. lungs decreased breath sounds. CARDIOVASCULAR: First and second sounds normal. ABDOMEN: Soft, nontender. Patient is able to answer simple questions. White count 29.7, hemoglobin 11.9, platelets 125, potassium 3.6, BUN 21, creatinine 0.80. DISCHARGE MEDICATIONS: 1. Ocuvite with lutein tab 1 tablet p.o. daily. 2. Tylenol 500 mg every 6. 3. Pepcid 20 mg b.i.d. 4. Folic acid 1 mg p.o. daily. 5. DuoNeb t.i.d. 6. Zestril 40 mg p.o. daily. 7. Magnesium oxide 400 mg t.i.d. 8. Lopressor 25 mg b.i.d. 9. Multivitamin 1 tablet p.o. daily. 10.Aldactone 25 mg p.o. daily. 11.Flomax 0.4 mg p.o. before supper. 12.Thiamine 100 mg p.o. b.i.d. 13.Lasix 40 mg p.o. daily. 14.Oxygen 4 L. DISPOSITION: [facility]. FOLLOWUP: Follow up with Dr. Braga in 2 weeks for the CML. Follow up with Dr. Matias in 10 days. Follow up with Dr. Solo in the ECF. Discussion and discharge planning more than 35 minutes. CODE STATUS IS FULL CODE. Copy to Dr. Solo. MMBRYANL / IJN: [id number] /
[2019-02-01] MEDS ORDERED: POTASSIUM BICARBONATE/CIT AC 20 MEQ TABLET.EFF PO SCH (09:00)
--- NOTE | 2019-02-01 16:34 | CDI ---
Documentation Clarification Form Date: 02/01/2019 3:18:00 PM From: Shaneka Golden Evelyn Man, Machine Loader Hours-8:30 am & 5 pm MDanna Admit Date: 01/21/2019 6:07:00 PM Patient Name: Mike Zuniga Visit Number: [id number] Discharge Date: 01/31/2019 4:48:00 PM ATTENTION: The Clinical Documentation Specialists (CDI) and [facility] Coding Staff appreciate your assistance in clarifying documentation. Please respond to the clarification below the line at the bottom and electronically sign. The CDI & [facility] Coding staff will review the response and follow-up if needed. Please note: Queries are made part of the Legal Health Record. If you have any questions, please contact the author of this message via ITS. Dr. Jean Pierre Cunha Encephalopathy is documented in the PNs History/Risk Factors: Alcoholism, HHD, Malnutrition, Acidosis Clinical Indicators: Alert/oriented, appropriate judgement Treatment: CIWA protocol, thiamine, folic acid In your professional opinion, can you please clarify the specific type of Encephalopathy, if known? Delirium due to Withdrawal Metabolic Encephalopathy Toxic Encephalopathy Other, please specify Unable to determine metabolic encephalopathy MTDD
== END 2019-01-31 16:48 | DRG 896 ==
LOC: 4SSUR 18:07
PROVIDERS: ADMIT Hospitalist; ATTEND Hospitalist
DX: F10.231 Alcohol dependence with withdrawal delirium (principal); I50.23 Acute on chronic systolic (congestive) heart failure; J69.0 Pneumonitis due to inhalation of food and vomit; J96.01 Acute respiratory failure with hypoxia; G93.41 Metabolic encephalopathy; C92.10 Chronic myeloid leukemia, BCR/ABL-positive, not having achieved remission; R64 Cachexia; E44.0 Moderate protein-calorie malnutrition; I42.9 Cardiomyopathy, unspecified; E87.1 Hypo-osmolality and hyponatremia; E87.0 Hyperosmolality and hypernatremia; E87.4 Mixed disorder of acid-base balance; I48.1 Persistent atrial fibrillation; M84.48XA Pathological fracture, other site, initial encounter for fracture; D69.6 Thrombocytopenia, unspecified; I11.0 Hypertensive heart disease with heart failure; I08.1 Rheumatic disorders of both mitral and tricuspid valves; E83.42 Hypomagnesemia; D64.9 Anemia, unspecified; Z68.21 Body mass index [BMI] 21.0-21.9, adult; M19.91 Primary osteoarthritis, unspecified site; H26.9 Unspecified cataract; F17.210 Nicotine dependence, cigarettes, uncomplicated; N40.1 Benign prostatic hyperplasia with lower urinary tract symptoms; R33.8 Other retention of urine; G89.29 Other chronic pain; T50.2X5A Adverse effect of carbonic-anhydrase inhibitors, benzothiadiazides and other diuretics, initial encounter; E26.09 Other primary hyperaldosteronism; E87.6 Hypokalemia; Z71.3 Dietary counseling and surveillance; Z79.899 Other long term (current) drug therapy; Z85.46 Personal history of malignant neoplasm of prostate; Z96.643 Presence of artificial hip joint, bilateral; Z91.19 Patient's noncompliance with other medical treatment and regimen; Z92.3 Personal history of irradiation; Z85.038 Personal history of other malignant neoplasm of large intestine; Z85.828 Personal history of other malignant neoplasm of skin
CPT/HCPCS: 70450; 71045; 71275; 72125; 74230; 76604; 80048; 80051; 80053; 81001; 82088; 83605; 83735; 83880; 84100; 84132; 84133; 84244; 85025; 85027; 87040; 87086; 93005; 93306; 94640; 94760; 94762; 96374; 99284

== ENCOUNTER 2019-02-04 09:23 | Observation (INO) | payer MEDICARE, OTHER ==
[2019-02-04] MEDS ORDERED: SODIUM CHLORIDE 0.9% 500 ML 500 ML IV ONE (09:41)
--- NOTE | 2019-02-04 09:47 | ED ---
General Adult HPI - General Chief complaint: Altered Mental Status Stated complaint: Altered mental status Time Seen by Provider: 02/04/19 09:37 Source: patient, RN/MD, EMS Mode of arrival: EMS Limitations: altered mental status - History of Present Illness Initial comments: Dictation was produced using Net[employer]er dictation software. please excuse any grammatical, word or spelling errors. Chief Complaint: 84-year-old male transferred via EMS from senior care for lethargy. History of Present Illness: Is 84-year-old male. He was brought to us by the EMS from [facility]. Patient was sent. As upon evaluation this morning nursing staff. Patient lethargic and confused. EMS was called. EMS reports that upon initial evaluation he was so confused however improved while en route to the emergency department. Patient is oxygen dependent on 46 L. According to chart review patient is at senior care for chronic debility. Patient has no complaint at this time. Denies any pain, shortness of breath. He is a reliable historian. Further chart review shows that patient has history of excessive alcohol abuse. According to transfer chart patient had no recent fevers. The ROS documented in this emergency department record has been reviewed and confirmed by me. Those systems with pertinent positive or negative responses have been documented in the HPI. All other systems are other negative and/or noncontributory. PHYSICAL EXAM: General Impression: Alert and oriented x3, not in acute distress, cachexic HEENT: Normocephalic atraumatic, extra-ocular movements intact, pupils equal and reactive to light bilaterally, mucous membranes moist, dried blood to the bilateral naris Cardiovascular: Heart regular rate and rhythm, S1&S2 audible, no murmurs, rubs or gallops Chest: Lungs clear to auscultation bilaterally, no rhonchi, no wheeze, no rales Abdomen: Bowel sounds present, abdomen soft, non-tender, non-distended, no organomegaly Musculoskeletal: Pulses present and equal in all extremities, no peripheral edema Motor: no focal deficits noted Neurological: CN II-XII grossly intact, no focal motor or sensory deficits noted Skin: Intact with no visualized rashes ED course: 84-year-old male transferred to the [facility] department for [facility] for altered mental status. Signs upon arrival are within acceptable limits. She had baseline is on 4-6 L nasal cannula. He is satting 90% on 6 L is cannula. EKG shows QTC of 502 .Lavatory evaluation obtained. Patient is leukocytosis of 36.6 this appears to be baseline for him. Chart review shows that patient has history of chronic myelogenous leukemia. He is told to rest of CBC is grossly unchanged. Coag panel metabolic panel is unchanged. No electrolyte abnormality. Urinalysis is negative. Urine drug screen shows benzodiazepines. CT was ordered however family and patient refused feeling that it was unnecessary. I discussed with them that there is concern that he may have fell or may have intracranial issue that may be undiagnosed a port that he is acting at baseline and don't feel the need for further intracranial imaging. Chest x-ray is positive for mild bilateral pleural effusions. Patient observed in emergency department found to be stable medical condition at this time. Patient actually appears well tolerating by mouth. Given QT prolongation with a QT of 502 with no apparent rapidly correctable cause we will have patient admitted to hospital with cardiac nurse practitioner and cardiology consultation. Internal medicine physician requests echo cardiac exam is well. EKG interpretation: Ventricular rate 85, normal sinus rhythm,. Interval 198, QRS 96, QTC 502. No ID prolongation, no QTC prolongation, no ST or T-wave changes noted. Overall, this EKG is unremarkable - Related Data Home Medications Medication Instructions Recorded Confirmed Vits A,C,E/Lutein/Minerals 1 tab PO DAILY 01/19/19 02/04/19 [Ocuvite with Lutein Tablet] Ipratropium-Albuterol Nebulize 3 ml INHALATION RT-TID 02/04/19 02/04/19 [Duoneb 0.5 mg-3 mg/3 ml Soln] Lactose-Reduced Food [Ensure Plus] 1 can PO BID 02/04/19 02/04/19 Melatonin 5 mg PO HS PRN 02/04/19 02/04/19 Multivitamins, Thera [Multivitamin 1 tab PO DAILY@1200 02/04/19 02/04/19 (formulary)] Temazepam [Restoril] 30 mg PO HS PRN 02/04/19 02/04/19 Previous Rx's Medication Instructions Recorded Acetaminophen Tab [Tylenol] 500 mg PO Q6HR tab 01/31/19 Famotidine [Pepcid] 20 mg PO BID #1 tablet 01/31/19 Folic Acid 1 mg PO DAILY@1200 tab 01/31/19 Furosemide [Lasix] 40 mg PO DAILY #1 tablet 01/31/19 Lisinopril [Zestril] 40 mg PO DAILY tab 01/31/19 Magnesium Oxide [Mag-Ox] 400 mg PO TID tab 01/31/19 Metoprolol Tartrate [Lopressor] 25 mg PO BID tab 01/31/19 Spironolactone [Aldactone] 25 mg PO DAILY tab 01/31/19 Tamsulosin [Flomax] 0.4 mg PO PC-SUPPER cap.er.24h 01/31/19 Thiamine [Vitamin B-1] 100 mg PO BID@1200,1700 tab 01/31/19 Allergies Allergy/AdvReac Type Severity Reaction Status Date / Time No Known Allergies Allergy Verified 02/04/19 09:46 Review of Systems ROS Statement: Those systems with pertinent positive or pertinent negative responses have been documented in the HPI. ROS Other: All systems not noted in ROS Statement are negative. Past Medical History Past Medical History: Cancer, Eye Disorder, Osteoarthritis (OA), Prostate Disorder Additional Past Medical History / Comment(s): Cataracts; PROSTATE CA, SKIN CA NOSE. History of Any Multi-Drug Resistant Organisms: None Reported Past Surgical History: Joint Replacement, Prostate Surgery Additional Past Surgical History / Comment(s): Juan hip replacement Past Anesthesia/Blood Transfusion Reactions: No Reported Reaction Past Psychological History: No Psychological Hx Reported Smoking Status: Current some day smoker Past Alcohol Use History: Daily, Occasional Past Drug Use History: None Reported - Past Family History Mother Family Medical History: No Reported History Additional Family Medical History / Comment(s): no blood or hematological disorders in family General Exam Limitations: altered mental status Course Vital Signs 02/04/19 02/04/19 02/04/19 09:26 09:30 10:00 Temperature 99.0 F Pulse Rate 83 80 Respiratory 20 24 Rate Blood Pressure 115/70 116/68 115/70 O2 Sat by Pulse 93 L 94 L 94 L Oximetry 02/04/19 10:30 Temperature Pulse Rate 74 Respiratory 20 Rate Blood Pressure 112/69 O2 Sat by Pulse 97 Oximetry Medical Decision Making - Lab Data Result diagrams: 02/04/19 09:58 02/04/19 09:58 Lab Results 02/04/19 02/04/19 02/04/19 Range/Units 09:58 09:58 09:58 WBC 36.6 H (3.8-10.6) k/uL RBC 3.94 L (4.30-5.90) m/uL Hgb 11.2 L (13.0-17.5) gm/dL Hct 35.1 L (39.0-53.0) % MCV 89.1 (80.0-100.0) fL MCH 28.5 (25.0-35.0) pg MCHC 32.0 (31.0-37.0) g/dL RDW 15.6 H (11.5-15.5) % Plt Count 212 (150-450) k/uL Neutrophils % (Manual) 55 % Band Neutrophils % 1 % Lymphocytes % (Manual) 7 % Monocytes % (Manual) 36 % Metamyelocytes % 1 % Myelocytes % 1 % Neutrophils # (Manual) 20.40 H (1.3-7.7) k/uL Lymphocytes # (Manual) 2.56 (1.0-4.8) k/uL Monocytes # (Manual) 13.18 H (0-1.0) k/uL Metamyelocytes # (Man) 0.37 H (0) k/uL Myelocytes # (Manual) 0.37 H (0) k/uL Nucleated RBCs 0 (0-0) /100 WBC Manual Slide Review Performed Large Platelets Present Hypochromasia Slight Target Cells Present PT (9.0-12.0) sec INR (<1.2) APTT (22.0-30.0) sec Sodium 140 (137-145) mmol/L Potassium 3.5 (3.5-5.1) mmol/L Chloride 99 (98-107) mmol/L Carbon Dioxide 32 H (22-30) mmol/L Anion Gap 9 mmol/L BUN 24 H (9-20) mg/dL Creatinine 0.94 (0.66-1.25) mg/dL Est GFR (CKD-EPI)AfAm 87 (>60 ml/min/1.73 sqM) Est GFR (CKD-EPI)NonAf 75 (>60 ml/min/1.73 sqM) Glucose 92 (74-99) mg/dL POC Glucose (mg/dL) (75-99) mg/dL POC Glu Salesperson Sheet Music ID Calcium 8.9 (8.4-10.2) mg/dL Magnesium (1.6-2.3) mg/dL Total Bilirubin 0.6 (0.2-1.3) mg/dL AST 43 (17-59) U/L ALT 37 (21-72) U/L Alkaline Phosphatase 99 (38-126) U/L Troponin I (0.000-0.034) ng/mL Total Protein 5.7 L (6.3-8.2) g/dL Albumin 2.8 L (3.5-5.0) g/dL Urine Color Yellow Urine Appearance Clear (Clear) Urine pH 9.0 H (5.0-8.0) Ur Specific [place] 1.005 (1.001-1.035) Urine Protein Negative (Negative) Urine Glucose (UA) Negative (Negative) Urine Ketones Negative (Negative) Urine Blood Moderate (Negative) Urine Nitrite Negative (Negative) Urine Bilirubin Negative (Negative) Urine Urobilinogen <2.0 (<2.0) mg/dL Ur Leukocyte Esterase Negative (Negative) Urine RBC >5 H (0-5) /hpf Urine WBC 1 (0-5) /hpf Urine Opiates Screen Not Detected (NotDetected) Ur Oxycodone Screen Not Detected (NotDetected) Urine Methadone Screen Not Detected (NotDetected) Ur Propoxyphene Screen Not Detected (NotDetected) Ur Barbiturates Screen Not Detected (NotDetected) U Tricyclic Antidepress Not Detected (NotDetected) Ur Phencyclidine Scrn Not Detected (NotDetected) Ur Amphetamines Screen Not Detected (NotDetected) U Methamphetamines Scrn Not Detected (NotDetected) U Benzodiazepines Scrn Detected H (NotDetected) Urine Cocaine Screen Not Detected (NotDetected) U Marijuana (THC) Screen Not Detected (NotDetected) 02/04/19 02/04/19 02/04/19 Range/Units 09:58 09:58 10:13 WBC (3.8-10.6) k/uL RBC (4.30-5.90) m/uL Hgb (13.0-17.5) gm/dL Hct (39.0-53.0) % MCV (80.0-100.0) fL MCH (25.0-35.0) pg MCHC (31.0-37.0) g/dL RDW (11.5-15.5) % Plt Count (150-450) k/uL Neutrophils % (Manual) % Band Neutrophils % % Lymphocytes % (Manual) % Monocytes % (Manual) % Metamyelocytes % % Myelocytes % % Neutrophils # (Manual) (1.3-7.7) k/uL Lymphocytes # (Manual) (1.0-4.8) k/uL Monocytes # (Manual) (0-1.0) k/uL Metamyelocytes # (Man) (0) k/uL Myelocytes # (Manual) (0) k/uL Nucleated RBCs (0-0) /100 WBC Manual Slide Review Large Platelets Hypochromasia Target Cells PT 11.3 (9.0-12.0) sec INR 1.1 (<1.2) APTT 31.2 H (22.0-30.0) sec Sodium (137-145) mmol/L Potassium (3.5-5.1) mmol/L Chloride (98-107) mmol/L Carbon Dioxide (22-30) mmol/L Anion Gap mmol/L BUN (9-20) mg/dL Creatinine (0.66-1.25) mg/dL Est GFR (CKD-EPI)AfAm (>60 ml/min/1.73 sqM) Est GFR (CKD-EPI)NonAf (>60 ml/min/1.73 sqM) Glucose (74-99) mg/dL POC Glucose (mg/dL) 96 (75-99) mg/dL POC Glu Salesperson Sheet Music ID Janice Sal Calcium (8.4-10.2) mg/dL Magnesium (1.6-2.3) mg/dL Total Bilirubin (0.2-1.3) mg/dL AST (17-59) U/L ALT (21-72) U/L Alkaline Phosphatase (38-126) U/L Troponin I <0.012 (0.000-0.034) ng/mL Total Protein (6.3-8.2) g/dL Albumin (3.5-5.0) g/dL Urine Color Urine Appearance (Clear) Urine pH (5.0-8.0) Ur Specific [place] (1.001-1.035) Urine Protein (Negative) Urine Glucose (UA) (Negative) Urine Ketones (Negative) Urine Blood (Negative) Urine Nitrite (Negative) Urine Bilirubin (Negative) Urine Urobilinogen (<2.0) mg/dL Ur Leukocyte Esterase (Negative) Urine RBC (0-5) /hpf Urine WBC (0-5) /hpf Urine Opiates Screen (NotDetected) Ur Oxycodone Screen (NotDetected) Urine Methadone Screen (NotDetected) Ur Propoxyphene Screen (NotDetected) Ur Barbiturates Screen (NotDetected) U Tricyclic Antidepress (NotDetected) Ur Phencyclidine Scrn (NotDetected) Ur Amphetamines Screen (NotDetected) U Methamphetamines Scrn (NotDetected) U Benzodiazepines Scrn (NotDetected) Urine Cocaine Screen (NotDetected) U Marijuana (THC) Screen (NotDetected) 02/04/19 Range/Units 11:00 WBC (3.8-10.6) k/uL RBC (4.30-5.90) m/uL Hgb (13.0-17.5) gm/dL Hct (39.0-53.0) % MCV (80.0-100.0) fL MCH (25.0-35.0) pg MCHC (31.0-37.0) g/dL RDW (11.5-15.5) % Plt Count (150-450) k/uL Neutrophils % (Manual) % Band Neutrophils % % Lymphocytes % (Manual) % Monocytes % (Manual) % Metamyelocytes % % Myelocytes % % Neutrophils # (Manual) (1.3-7.7) k/uL Lymphocytes # (Manual) (1.0-4.8) k/uL Monocytes # (Manual) (0-1.0) k/uL Metamyelocytes # (Man) (0) k/uL Myelocytes # (Manual) (0) k/uL Nucleated RBCs (0-0) /100 WBC Manual Slide Review Large Platelets Hypochromasia Target Cells PT (9.0-12.0) sec INR (<1.2) APTT (22.0-30.0) sec Sodium (137-145) mmol/L Potassium (3.5-5.1) mmol/L Chloride (98-107) mmol/L Carbon Dioxide (22-30) mmol/L Anion Gap mmol/L BUN (9-20) mg/dL Creatinine (0.66-1.25) mg/dL Est GFR (CKD-EPI)AfAm (>60 ml/min/1.73 sqM) Est GFR (CKD-EPI)NonAf (>60 ml/min/1.73 sqM) Glucose (74-99) mg/dL POC Glucose (mg/dL) (75-99) mg/dL POC Glu Salesperson Sheet Music ID Calcium (8.4-10.2) mg/dL Magnesium 2.2 (1.6-2.3) mg/dL Total Bilirubin (0.2-1.3) mg/dL AST (17-59) U/L ALT (21-72) U/L Alkaline Phosphatase (38-126) U/L Troponin I (0.000-0.034) ng/mL Total Protein (6.3-8.2) g/dL Albumin (3.5-5.0) g/dL Urine Color Urine Appearance (Clear) Urine pH (5.0-8.0) Ur Specific [place] (1.001-1.035) Urine Protein (Negative) Urine Glucose (UA) (Negative) Urine Ketones (Negative) Urine Blood (Negative) Urine Nitrite (Negative) Urine Bilirubin (Negative) Urine Urobilinogen (<2.0) mg/dL Ur Leukocyte Esterase (Negative) Urine RBC (0-5) /hpf Urine WBC (0-5) /hpf Urine Opiates Screen (NotDetected) Ur Oxycodone Screen (NotDetected) Urine Methadone Screen (NotDetected) Ur Propoxyphene Screen (NotDetected) Ur Barbiturates Screen (NotDetected) U Tricyclic Antidepress (NotDetected) Ur Phencyclidine Scrn (NotDetected) Ur Amphetamines Screen (NotDetected) U Methamphetamines Scrn (NotDetected) U Benzodiazepines Scrn (NotDetected) Urine Cocaine Screen (NotDetected) U Marijuana (THC) Screen (NotDetected) Disposition Clinical Impression: Prolonged QT interval Disposition: ADMITTED IP TO THIS [facility] Condition: Good Referrals: Maricel Ontiveros MD [Primary Care Provider] - 1-2 days Decision Time: 12:20
[2019-02-04 10:15] LABS: Glucose,Whole Blood 96 mg/dL (75-99)
[2019-02-04 10:21] LABS: HCT 35.1 % (39.0-53.0); HGB 11.2 gm/dL (13.0-17.5); Hypochromasia Slight; MCH 28.5 pg (25.0-35.0); MCV 89.1 fL (80.0-100.0); Mean Platelet Volume 11.4; Platelet Count 212 k/uL (150-450); RBC 3.94 m/uL (4.30-5.90); RDW 15.6 % (11.5-15.5); WBC 36.6 k/uL (3.8-10.6)
[2019-02-04 10:31] LABS: INR 1.1 (<1.2); Partial Thromboplastin Time 31.2 sec (22.0-30.0); Prothrombin Time 11.3 sec (9.0-12.0)
[2019-02-04 10:32] LABS: Albumin 2.8 g/dL (3.5-5.0); Calcium 8.9 mg/dL (8.4-10.2); Potassium 3.5 mmol/L (3.5-5.1); Total Bilirubin 0.6 mg/dL (0.2-1.3); Total Protein 5.7 g/dL (6.3-8.2)
[2019-02-04 10:52] LABS: Amphetamine Screen,Urine Not Detected (NotDetected); Barbiturate Screen,Urine Not Detected (NotDetected); Benzodiazepines Screen,Urine Detected (NotDetected); Cocaine Screen,Urine Not Detected (NotDetected); Methadone Screen, Urine Not Detected (NotDetected); Opiate Screen,Urine Not Detected (NotDetected); Oxycodone Screen, Urine Not Detected (NotDetected); Phencyclidine Screen,Urine Not Detected (NotDetected); Tricyclic Antidepressant,Urine Not Detected (NotDetected); Urn Cannabinoid Scrn Not Detected (NotDetected)
[2019-02-04] MEDS ORDERED: HYDROcodone/APAP 5-325MG 1 EACH TAB PO STA (11:00)
[2019-02-04 11:11] LABS: Band Neutrophils % 1 %; Lymphocytes # (M) 2.56 k/uL (1.0-4.8); Metamyelocytes # (M) 0.37 k/uL (0); Metamyelocytes % 1 %; Monocytes # (M) 13.18 k/uL (0-1.0); Myelocytes # (M) 0.37 k/uL (0); Myelocytes % 1 %; Neutrophils % (M) 55 %; Nucleated Red Blood Cells 0 /100 WBC (0-0); Total Cells Counted 200
[2019-02-04 11:16] LABS: Appearance,Urine Clear (Clear); Color,Urine Yellow; Glucose,Urine (UA) Negative (Negative); Ketones,Urine Negative (Negative); Protein,Urine Negative (Negative); Specific Gravity,Urine 1.005 (1.001-1.035)
[2019-02-04 11:17] LABS: Bilirubin,Urine Negative (Negative); Blood,Urine Moderate (Negative); Leukocyte Esterase,Urine Negative (Negative); Nitrite,Urine Negative (Negative); RBC,Urine >5 /hpf (0-5); Urobilinogen,Urine <2.0 mg/dL (<2.0); WBC,Urine 1 /hpf (0-5)
[2019-02-04 11:21] LABS: Large Platelets Present
[2019-02-04 11:22] LABS: Target Cells Present
--- NOTE | 2019-02-04 11:51 | XR ---
EXAMINATION TYPE: XR chest 2V DATE OF EXAM: 02/04/2019 COMPARISON: 01/28/2019 HISTORY: 84-year-old male confusion, altered mental status TECHNIQUE: AP and lateral views FINDINGS: Leftward patient rotation alters the normal cardia mediastinal contours. Heart upper limits of normal in size. Hyperinflation with interstitial prominence. Small left greater than right pleural effusion s are demonstrated. IMPRESSION: 1. Rotated exam. COPD with possible superimposed mild pulmonary vascular congestion. 2. Small left greater right pleural effusions with adjacent atelectasis and/or consolidation.
[2019-02-04] MEDS ORDERED: ACETAMINOPHEN TAB 325 MG TAB PO PRN (12:13)
[2019-02-04] MEDS ORDERED: NALOXONE 0.4 MG/ML 1 ML VIAL IV PRN (12:13)
[2019-02-04 13:20] LABS: VBG PH 7.46 (7.31-7.41)
[2019-02-04] MEDS: SODIUM CHLORIDE 0.9% 1,000 ML IV SCH (16:47)
[2019-02-04] MEDS ORDERED: MELATONIN 5 MG TABLET PO PRN (19:00)
[2019-02-04] MEDS: METOPROLOL TARTRATE 25 MG TAB PO SCH (20:37)
[2019-02-04] MEDS: MAGNESIUM OXIDE 400 MG TAB PO SCH (20:37)
[2019-02-04] MEDS: FAMOTIDINE 20 MG TAB PO SCH (20:37)
[2019-02-04] MEDS ORDERED: NON-FORMULARY DRUG (Lactose-Reduced Food [Ensure Plus] 1 CAN) PO SCH (21:00)
[2019-02-04] MEDS: IPRATROPIUM-ALBUTEROL 3 ML NEB INHALATION SCH (21:27)
[2019-02-05] MEDS: ACETAMINOPHEN TAB 500 MG TAB PO SCH ×3 (03:06→11:50)
[2019-02-05] MEDS: IPRATROPIUM-ALBUTEROL 3 ML NEB INHALATION SCH ×2 (07:27→13:04)
[2019-02-05] MEDS ORDERED: LISINOPRIL 20 MG TAB PO SCH (09:00)
[2019-02-05] MEDS ORDERED: VIT A,C & E-LUTEIN-MINERALS 1 EACH TAB PO SCH (09:00)
[2019-02-05] MEDS ORDERED: SPIRONOLACTONE 25 MG TAB PO SCH (09:00)
[2019-02-05] MEDS ORDERED: PANTOPRAZOLE 40 MG/10 ML VIAL IV SCH (09:00)
[2019-02-05] MEDS ORDERED: FUROSEMIDE 40 MG TAB PO SCH (09:00)
--- NOTE | 2019-02-05 09:10 | P.CRDCN ---
History of Present Illness Consult date: 02/05/19 Requesting physician: Rigoberto Fuchs Reason for Consult (text): Prolonged QT Chief complaint: Mental status changes History of present illness: This is an 84-year-old gentleman who was just recently discharged from the hospital on the of this month, to an extended care facility. He has a known history of CML, alcohol abuse, prostate cancer, nicotine dependence, noncompliance. He was admitted to the hospital on this occasion with suspected mental status changes. According to the documentation, in the EMS patient was alert. Patient just had an echo performed earlier this month which revealed an ejection fraction of 30-35%, severe global hypokinesia noted. Chest x-ray on a rrival here showed COPD with possible superimposed mild pulmonary vascular congestion. Small left greater than right pleural effusion. EKG shows normal sinus rhythm with nonspecific ST-T wave changes, QTc measuring at 502. Blood pressure 118/60 with a heart rate in the 90s, 94% on a 15 L Ventimask. White blood cell count 36.6, hemoglobin 11.2, platelet count 212. Sodium 140, potassium 3.5, BUN 24 creatinine 0.4 troponin 0.012. Drug screen positive for benzodiazepines. Past Medical History Past Medical History: Blood Disorder, Cancer, Eye Disorder, Osteoarthritis (OA), Prostate Disorder Additional Past Medical History / Comment(s): Cataracts; PROSTATE CA, SKIN CA NOSE. LEUKEMIA History of Any Multi-Drug Resistant Organisms: None Reported Past Surgical History: Joint Replacement, Prostate Surgery Additional Past Surgical History / Comment(s): Juan hip replacement, CATARACT BILAT Past Anesthesia/Blood Transfusion Reactions: No Reported Reaction Past Psychological History: No Psychological Hx Reported Smoking Status: Current some day smoker Past Alcohol Use History: Daily, Occasional Additional Past Alcohol Use History / Comment(s): smokes one pack per day, drinks 3 beers per day- LAST DRINK AND LAST CIGARETTE WAS 01/18/2019 Past Drug Use History: None Reported - Past Family History Mother Family Medical History: No Reported History Additional Family Medical History / Comment(s): no blood or hematological disorders in family Medications and Allergies Home Medications Medication Instructions Recorded Confirmed Type Vits A,C,E/Lutein/Minerals 1 tab PO DAILY 01/19/19 02/04/19 History [Ocuvite with Lutein Tablet] Acetaminophen Tab [Tylenol] 500 mg PO Q6HR tab 01/31/19 02/04/19 Rx Famotidine [Pepcid] 20 mg PO BID #1 tablet 01/31/19 02/04/19 Rx Folic Acid 1 mg PO DAILY@1200 tab 01/31/19 02/04/19 Rx Furosemide [Lasix] 40 mg PO DAILY #1 tablet 01/31/19 02/04/19 Rx Lisinopril [Zestril] 40 mg PO DAILY tab 01/31/19 02/04/19 Rx Magnesium Oxide [Mag-Ox] 400 mg PO TID tab 01/31/19 02/04/19 Rx Metoprolol Tartrate [Lopressor] 25 mg PO BID tab 01/31/19 02/04/19 Rx Spironolactone [Aldactone] 25 mg PO DAILY tab 01/31/19 02/04/19 Rx Tamsulosin [Flomax] 0.4 mg PO PC-SUPPER cap.er.24h 01/31/19 02/04/19 Rx Thiamine [Vitamin B-1] 100 mg PO BID@1200,1700 tab 01/31/19 02/04/19 Rx Ipratropium-Albuterol Nebulize 3 ml INHALATION RT-TID 02/04/19 02/04/19 History [Duoneb 0.5 mg-3 mg/3 ml Soln] Lactose-Reduced Food [Ensure Plus] 1 can PO BID 02/04/19 02/04/19 History Melatonin 5 mg PO HS PRN 02/04/19 02/04/19 History Multivitamins, Thera [Multivitamin 1 tab PO DAILY@1200 02/04/19 02/04/19 History (formulary)] Temazepam [Restoril] 30 mg PO HS PRN 02/04/19 02/04/19 History Allergies Allergy/AdvReac Type Severity Reaction Status Date / Time No Known Allergies Allergy Verified 02/04/19 09:46 Physical Exam Vitals: Vital Signs Temp Pulse Pulse Pulse Resp BP BP 02/05/19 07:42 88 20 02/05/19 07:27 86 20 02/05/19 03:18 98.5 F 96 18 118/60 02/05/19 00:00 99 F 100 20 101/52 02/04/19 21:37 102 H 02/04/19 21:29 102 H 02/04/19 20:00 100.6 F H 105 H 20 110/58 02/04/19 19:41 02/04/19 16:20 99.8 F H 93 24 163/54 02/04/19 14:22 98.1 F 82 18 106/67 02/04/19 12:30 86 20 115/68 02/04/19 12:00 78 19 02/04/19 11:30 126/65 02/04/19 11:00 76 20 125/63 02/04/19 10:30 74 20 112/69 02/04/19 10:00 80 24 115/70 02/04/19 09:30 116/68 02/04/19 09:26 99.0 F 83 20 115/70 Pulse Ox 02/05/19 07:42 02/05/19 07:27 94 L 02/05/19 03:18 97 02/05/19 00:00 93 L 02/04/19 21:37 02/04/19 21:29 02/04/19 20:00 92 L 02/04/19 19:41 93 L 02/04/19 16:20 93 L 02/04/19 14:22 94 L 02/04/19 12:30 02/04/19 12:00 94 L 02/04/19 11:30 02/04/19 11:00 97 02/04/19 10:30 97 02/04/19 10:00 94 L 02/04/19 09:30 94 L 02/04/19 09:26 93 L Intake and Output 02/04/19 02/05/19 02/05/19 22:59 06:59 14:59 Intake Total 10 20 230 Balance 10 20 230 Intake: Oral 10 20 230 Other: Voiding Method Indwelling Catheter Indwelling Catheter Weight 41.5 kg PHYSICAL EXAMINATION: GENERAL: 84-year-old gentleman in no acute distress at the time of my examination HEENT: Head is atraumatic, normocephalic. Pupils equal, round. Sclera anicteric. Conjunctiva are clear. Mucous membranes of the mouth are moist. Neck is supple. There is no elevated jugular venous pressure. No carotid bruit is heard. HEART EXAMINATION: Heart S1 S2 1 systolic murmur is heard. CHEST EXAMINATION: Clear with mild diminished air entry to the bases. ABDOMEN: Soft, nontender. Bowel sounds are heard. No organomegaly noted. EXTREMITIES: 2+ peripheral pulses with no evidence of peripheral edema and no calf tenderness noted. NEUROLOGIC patient is awake, alert and oriented 2 . . Results 02/04/19 09:58 02/04/19 09:58 Cardiac Enzymes 02/04/19 02/04/19 Range/Units 09:58 09:58 AST 43 (17-59) U/L Troponin I <0.012 (0.000-0.034) ng/mL Coagulation 02/04/19 Range/Units 09:58 PT 11.3 (9.0-12.0) sec APTT 31.2 H (22.0-30.0) sec CBC 02/04/19 Range/Units 09:58 WBC 36.6 H (3.8-10.6) k/uL RBC 3.94 L (4.30-5.90) m/uL Hgb 11.2 L (13.0-17.5) gm/dL Hct 35.1 L (39.0-53.0) % Plt Count 212 (150-450) k/uL Comprehensive Metabolic Panel 02/04/19 Range/Units 09:58 Sodium 140 (137-145) mmol/L Potassium 3.5 (3.5-5.1) mmol/L Chloride 99 (98-107) mmol/L Carbon Dioxide 32 H (22-30) mmol/L BUN 24 H (9-20) mg/dL Creatinine 0.94 (0.66-1.25) mg/dL Glucose 92 (74-99) mg/dL Calcium 8.9 (8.4-10.2) mg/dL AST 43 (17-59) U/L ALT 37 (21-72) U/L Alkaline Phosphatase 99 (38-126) U/L Total Protein 5.7 L (6.3-8.2) g/dL Albumin 2.8 L (3.5-5.0) g/dL Current Medications Generic Name Dose Route Start Last Admin Trade Name Freq PRN Reason Stop Dose Admin Acetaminophen 650 mg 02/04/19 12:13 02/04/19 20:38 Tylenol Tab PO 650 mg Q6HR PRN Administration Mild Pain or Fever > 100.5 Acetaminophen 500 mg 02/05/19 00:00 02/05/19 05:41 Tylenol Tab PO 500 mg Q6HR CYDNEY Administration Albuterol/Ipratropium 3 ml 02/04/19 20:00 02/05/19 07:27 Duoneb 0.5 Mg-3 Mg/3 Ml Soln INHALATION 3 ml RT-TID CYDNEY Administration Famotidine 20 mg 02/04/19 21:00 02/04/19 20:37 Pepcid PO 20 mg BID CYDNEY Administration Folic Acid 1 mg 02/05/19 12:00 Folic Acid PO DAILY@1200 [facility] Furosemide 40 mg 02/05/19 09:00 Lasix PO DAILY [facility] Sodium Chloride 1,000 mls @ 20 mls/hr 02/04/19 12:15 02/04/19 16:47 Saline 0.9% IV 20 mls/hr .Q24H CYDNEY Administration Lisinopril 40 mg 02/05/19 09:00 Zestril PO DAILY [facility] Magnesium Oxide 400 mg 02/04/19 22:00 02/04/19 20:37 Mag-Ox PO 400 mg TID [facility] Administration Melatonin 5 mg 02/04/19 19:00 Melatonin PO HS PRN Insomnia Metoprolol Tartrate 25 mg 02/04/19 21:00 02/04/19 20:37 Lopressor PO 25 mg BID [facility] Administration Multivitamins 1 each 02/05/19 12:00 Theragran PO DAILY@1200 [facility] Multivitamins/Minerals 1 each 02/05/19 09:00 Ivite PO DAILY [facility] Naloxone HCl 0.2 mg 02/04/19 12:13 Narcan IV Q2M PRN Opioid Reversal Pantoprazole Sodium 40 mg 02/05/19 09:00 Protonix IV DAILY [facility] Spironolactone 25 mg 02/05/19 09:00 Aldactone PO DAILY [facility] Tamsulosin HCl 0.4 mg 02/05/19 18:30 Flomax PO PC-SUPPER [facility] Thiamine HCl 100 mg 02/05/19 12:00 Vitamin B-1 PO BID@1200,1700 [facility] Intake and Output 02/04/19 02/05/19 02/05/19 22:59 06:59 14:59 Intake Total 10 20 230 Balance 10 20 230 Intake: Oral 10 20 230 Other: Voiding Method Indwelling Catheter Indwelling Catheter Weight 41.5 kg 02/04/19 09:58 02/04/19 09:58 EKG Interpretations (text) EKG shows normal sinus rhythm with nonspecific ST-T wave changes, QTc measuring 502. Assessment and Plan Plan: Assessment and plan #1 mental status changes #2 recent hospitalization with the suspected pneumonia, temperature on admission here 100.6. #3 prolonged QT, patient has a QTc measuring 506. QTC on the most recent EKG performed earlier this month 510. #4 CML #5 alcohol abuse #6 history of prostate cancer #7 nicotine dependence #8 COPD #9 history of noncompliance #10 cardiomyopathy, nonischemic, could be secondary to EtOH, ejection fraction 30-35%. Plan We'll not repeat the patient's echocardiogram with Doppler study as he had one earlier this month. We will give the patient one time dose of IV Lasix, he did receive significant amount of fluid on arrival here. Then continue his home Lasix dose. Continue lisinopril, beta william, and Aldactone. DNP note has been reviewed, I agree with a documented findings and plan of care. Patient was seen and examined.
[2019-02-05] MEDS: MAGNESIUM OXIDE 400 MG TAB PO SCH (09:29)
[2019-02-05] MEDS: FAMOTIDINE 20 MG TAB PO SCH (09:29)
[2019-02-05] MEDS: METOPROLOL TARTRATE 25 MG TAB PO SCH (09:30)
[2019-02-05 09:47] VITALS: TEMP 99
[2019-02-05] MEDS: POTASSIUM CHLORIDE ER 20 MEQ TAB.ER PO SCH ×2 (11:50→14:09)
[2019-02-05] MEDS ORDERED: FOLIC ACID 1 MG TAB PO SCH (12:00)
[2019-02-05] MEDS ORDERED: THIAMINE 100 MG TAB PO SCH (12:00)
[2019-02-05] MEDS ORDERED: MULTIVITAMINS, THERA 1 EACH TAB PO SCH (12:00)
--- NOTE | 2019-02-05 12:27 | ECHOF ---
Referral Reason:syncope MEASUREMENTS -------- HEIGHT: 170.2 cm WEIGHT: 41.3 kg BP: FINDINGS -------- Echo done 01/25/19: Limited Study for LV function. Overall left ventricular systolic function is low-normal with, an EF between 50 - 55 %. CONCLUSIONS -------- 1. Overall left ventricular systolic function is low-normal with, an EF between 50 - 55 %. TRANSFORMER ASSEMBLER: Margy Ruiz RDCS
--- NOTE | 2019-02-05 12:55 | P.HPIM ---
History of Present Illness H&P Date: 02/04/19 Chief Complaint: change in mental status, lethargy prolonged QT waves. 84-year-old male who started seen Dr. Ontiveros at [facility] on leg after he was transferred from [facility] last week. Apparently patient had history of prostate cancer, history of CML, and chronic alcoholism he presented to [facility] department with complaint of chronic neck pain CT found C1 fracture patient was transferred to [facility] neurosurgery evaluation he was seen and evaluated I recommended soft neck collar at the time with no surgical intervention transfer back to [facility] for alcohol withdrawal and was hospitalized between January 22 till the when patient was transferred to [facility] on the rodriguez. Patient was sent to the emergency department today because found to be somnolence and had significant change mental status by the time he made it to the emergency department per family and emergency physician evaluation patient was back to his mental status incidentally found to have significant a prolonged QT waves interval with his current circumstances and seen area and mild arrhythmia patient was admitted to the hospital continue front desk monitor reevaluated by electrophysiology for possible need for ICD specially if no electrolyte imbalance or thyroid problem was found. Review of Systems CONSTITUTIONAL: Very thin and contracted Marcus in the fetus position curve toward the right side does not look in any respiratory distress. EYES: No icterus sclerae, no conjunctivitis. EARS, NOSE, MOUTH, THROAT, and FACE: No sore throat, lymphadenopathy, carotid bruits or deformity. RESPIRATORY: Mild shortness of breath no cough wheezes. CARDIOVASCULAR: Positive PND orthopnea or palpitation no angina. GASTROINTESTINAL: No Abd pain, Nausea or vomiting, no Diarrhea or constipation, No GI Bleed, no distention or masses. GENITOURINARY: Negative for Hematuria or UTI, no kidney stones. INTEGUMENT/BREAST: Negative for any muscular injury with mild osteoarthritis.. HEMATOLOGIC/LYMPHATIC: Negative for bleed or purpura. MUSCULOSKELTAL: Multiple joint and muscle discomfort and contraction. NEURLOGICAL: Mild confusion and altered mental status. BEHAVIORAL/PSYCH: Negative. ENDOCRINE: Negative. Past Medical History Past Medical History: Blood Disorder, Cancer, Eye Disorder, Osteoarthritis (OA), Prostate Disorder Additional Past Medical History / Comment(s): Cataracts; PROSTATE CA, SKIN CA NOSE. LEUKEMIA History of Any Multi-Drug Resistant Organisms: None Reported Past Surgical History: Joint Replacement, Prostate Surgery Additional Past Surgical History / Comment(s): Juan hip replacement, CATARACT BILAT Past Anesthesia/Blood Transfusion Reactions: No Reported Reaction Past Psychological History: No Psychological Hx Reported Smoking Status: Current some day smoker Past Alcohol Use History: Daily, Occasional Additional Past Alcohol Use History / Comment(s): smokes one pack per day, drinks 3 beers per day- LAST DRINK AND LAST CIGARETTE WAS 01/18/2019 Past Drug Use History: None Reported - Past Family History Mother Family Medical History: No Reported History Additional Family Medical History / Comment(s): no blood or hematological disorders in family Medications and Allergies Home Medications Medication Instructions Recorded Confirmed Type Vits A,C,E/Lutein/Minerals 1 tab PO DAILY 01/19/19 02/04/19 History [Ocuvite with Lutein Tablet] Acetaminophen Tab [Tylenol] 500 mg PO Q6HR tab 01/31/19 02/04/19 Rx Famotidine [Pepcid] 20 mg PO BID #1 tablet 01/31/19 02/04/19 Rx Folic Acid 1 mg PO DAILY@1200 tab 01/31/19 02/04/19 Rx Furosemide [Lasix] 40 mg PO DAILY #1 tablet 01/31/19 02/04/19 Rx Lisinopril [Zestril] 40 mg PO DAILY tab 01/31/19 02/04/19 Rx Magnesium Oxide [Mag-Ox] 400 mg PO TID tab 01/31/19 02/04/19 Rx Metoprolol Tartrate [Lopressor] 25 mg PO BID tab 01/31/19 02/04/19 Rx Spironolactone [Aldactone] 25 mg PO DAILY tab 01/31/19 02/04/19 Rx Tamsulosin [Flomax] 0.4 mg PO PC-SUPPER cap.er.24h 01/31/19 02/04/19 Rx Thiamine [Vitamin B-1] 100 mg PO BID@1200,1700 tab 01/31/19 02/04/19 Rx Ipratropium-Albuterol Nebulize 3 ml INHALATION RT-TID 02/04/19 02/04/19 History [Duoneb 0.5 mg-3 mg/3 ml Soln] Lactose-Reduced Food [Ensure Plus] 1 can PO BID 02/04/19 02/04/19 History Melatonin 5 mg PO HS PRN 02/04/19 02/04/19 History Multivitamins, Thera [Multivitamin 1 tab PO DAILY@1200 02/04/19 02/04/19 History (formulary)] Potassium Chloride ER [K-Dur 20] 20 meq PO DAILY #7 tab 02/05/19 Rx Allergies Allergy/AdvReac Type Severity Reaction Status Date / Time No Known Allergies Allergy Verified 02/04/19 09:46 Physical Exam Vitals: Vital Signs Temp Pulse Pulse Resp BP BP Pulse Ox 02/04/19 19:41 93 L 02/04/19 16:20 99.8 F H 93 24 163/54 93 L 02/04/19 14:22 98.1 F 82 18 106/67 94 L 02/04/19 12:30 86 20 115/68 02/04/19 12:00 78 19 94 L 02/04/19 11:30 126/65 02/04/19 11:00 76 20 125/63 97 02/04/19 10:30 74 20 112/69 97 02/04/19 10:00 80 24 115/70 94 L 02/04/19 09:30 116/68 94 L 02/04/19 09:26 99.0 F 83 20 115/70 93 L Intake and Output 02/04/19 02/04/19 02/04/19 06:59 14:59 22:59 Output Total 400 Balance -400 Output: Urine 400 Other: Voiding Method Indwelling Catheter Weight 49.804 kg General Appearance: Alert, cooperative, laying on the right side and the fetus position does not look in any respiratory distress. Neck HEENT: Supple, no lymphadenopathy, no thyroid enlargement, no carotid bruits. Lungs: Decreased breath some bilateral final Casey crackles or wheezes. Chest Wall: Decrease expansion with deep inspiration no tenderness and no def ormity was found on exam, no costochondral pain or discomfort. Heart: Regular rate and rhythm, S1, S2 normal, rub or gallop. Positive mild irregularity with arrhythmia with systolic murmur. Back: Symmetric, significant curvature with mild kyphosis. Abdomen: Soft decreased bowel sounds no tenderness rebound rigidity no organomegaly. Extremities: Extremities normal, atraumatic, no cyanosis or edema. Pulses: 2+ and symmetric. Skin: Skin color, texture, tugor normal, no rashes or lesions. Neurologic: Alert and oriented to slight confusion still have slight weakness on the right side compared to the left side. Results CBC & Chem 7: 02/04/19 09:58 02/04/19 09:58 Labs: Abnormal Lab Results - Last 24 Hours (Table) 02/04/19 02/04/19 02/04/19 Range/Units 09:58 09:58 09:58 WBC 36.6 H (3.8-10.6) k/uL RBC 3.94 L (4.30-5.90) m/uL Hgb 11.2 L (13.0-17.5) gm/dL Hct 35.1 L (39.0-53.0) % RDW 15.6 H (11.5-15.5) % Neutrophils # (Manual) 20.40 H (1.3-7.7) k/uL Monocytes # (Manual) 13.18 H (0-1.0) k/uL Metamyelocytes # (Man) 0.37 H (0) k/uL Myelocytes # (Manual) 0.37 H (0) k/uL APTT (22.0-30.0) sec VBG pH (7.31-7.41) VBG HCO3 (24-28) mmol/L Carbon Dioxide 32 H (22-30) mmol/L BUN 24 H (9-20) mg/dL Total Protein 5.7 L (6.3-8.2) g/dL Albumin 2.8 L (3.5-5.0) g/dL Urine pH 9.0 H (5.0-8.0) Urine RBC >5 H (0-5) /hpf U Benzodiazepines Scrn Detected H (NotDetected) 02/04/19 02/04/19 Range/Units 09:58 12:25 WBC (3.8-10.6) k/uL RBC (4.30-5.90) m/uL Hgb (13.0-17.5) gm/dL Hct (39.0-53.0) % RDW (11.5-15.5) % Neutrophils # (Manual) (1.3-7.7) k/uL Monocytes # (Manual) (0-1.0) k/uL Metamyelocytes # (Man) (0) k/uL Myelocytes # (Manual) (0) k/uL APTT 31.2 H (22.0-30.0) sec VBG pH 7.46 H (7.31-7.41) VBG HCO3 31 H (24-28) mmol/L Carbon Dioxide (22-30) mmol/L BUN (9-20) mg/dL Total Protein (6.3-8.2) g/dL Albumin (3.5-5.0) g/dL Urine pH (5.0-8.0) Urine RBC (0-5) /hpf U Benzodiazepines Scrn (NotDetected) Thrombosis Risk Factor Assmnt - DVT/VTE Prophylaxis DVT/VTE Prophylaxis: Pharmacologic Prophylaxis ordered, Mechanical Prophylaxis ordered - Choose All That Apply Each Factor Represents 1 point: Medical pt on bed rest Each Risk Factor Represents 2 Points: Patient confined to bed Each Risk Factor Represents 3 Points: Age 75 years or older Each Risk Factor Represents 5 Points: Multiple trauma (< 1 month) Thrombosis Risk Factor Assessment Total Risk Factor Score: 11 Thrombosis Risk Factor Assessment Level: High Risk Assessment and Plan Plan: 1 alter mental status: 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 Continue to watch patient hemodynamic status admit patient to hospital and reevaluate every few hours. 2 prolonged QT waves interval not clear etiology at this point apparently patient was evaluated by cardiology with his last hospitalization we will reconsult electrophysiology reevaluate patient review his echocardiogram and see if this is truthfully an electrophysiology phenomenon or abnormality might require an ICD. 3 chronic CML: Patient has been seen hematology but not on any medication so far. 4 cardiomyopathy with ejection fraction of 30% valve from last time patient was evaluated by cardiology has been on spironolactone, metoprolol, lisinopril and furosemide. 5 BPH with mild symptoms continue Flomax 0.4 mg daily. 6 hypertension: Blood pressure remain well controlled on lisinopril 40 mg a day along with Aldactone 25 mg a day with try to decrease in hold metoprolol if possible. 7 severe GERD and GI prophylaxis: Remain on Pepcid and pantoprazole. 8 DVT prophylaxis: Continue patient on heparin subcutaneous. CODE STATUS: Full code. Admit patient to inpatient status for 1-2 nights.
[2019-02-05 13:19] VITALS: BP 111/57; PULSE 64; RESP 22
--- NOTE | 2019-02-05 13:57 | P.DS ---
Providers Date of admission: 02/04/19 12:13 Expected date of discharge: 02/05/19 Attending physician: Rigoberto Fuchs Consults: 02/04/19 12:14 Consult Physician Routine Consulting Provider: Max Low Consult Reason/Comments: prolonged qt Do you want consulting provider notified?: Yes Primary care physician: Maricel Ontiveros [facility] Course: 84-year-old male who started seen Dr. Ontiveros at [facility] on leg after he was transferred from [facility] last week. Apparently patient had history of prostate cancer, history of CML, and chronic alcoholism he presented to demurs department with complaint of chronic neck pain CT found C1 fracture patient was transferred to [facility] neurosurgery evaluation he was seen and evaluated I recommended soft neck collar at the time with no surgical intervention transfer back to [facility] for alcohol withdrawal and was hospitalized between January 22 till the when patient was transferred to [facility] on the rodriguez. Patient was sent to the emergency department today because found to be somnolence and had significant change mental status by the time he made it to the emergency department per family and emergency physician evaluation patient was back to his mental status incidentally found to have significant a prolonged QT waves interval with his current circumstances and seen area and mild arrhythmia patient was admitted to the hospital continue monitoring and evaluation advisor reevaluated by electrophysiology for possible need for ICD specially if no electrolyte imbalance or thyroid problem was found. 02/05: Temperature max 100.6, afebrile since 8 PM. Heart rate in the 60s to 80s, pulse ox 94% on 15 L nasal cannula, blood pressure 111/57. Patient has been seen by cardiology and patient was ordered for 1 dose of IV Lasix secondary to receiving large amount of fluid in the emergency center. He will then be able to continue his home dose of Lasix, lisinopril, beta william and Aldactone. Limited echocardiogram reveals EF of 50-55%. Patient has been cleared by cardiology to return to [facility]. Patient will be discharged today in stable condition. Discharge Diagnoses: 1 alcoholic encephalopathy possible reaction to medication and could not exclude the possibility of arrhythmia specially with a prolonged QT interval this point. 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 Isis Claudio nurse practitioner acting as scribe for signing physician. Patient Condition at Discharge: Good Plan - Discharge Summary New Discharge Prescriptions: New Potassium Chloride ER [K-Dur 20] 20 meq PO DAILY #7 tab Continue Vits A,C,E/Lutein/Minerals [Ocuvite with Lutein Tablet] 1 tab PO DAILY Spironolactone [Aldactone] 25 mg PO DAILY tab Tamsulosin [Flomax] 0.4 mg PO PC-SUPPER cap.er.24h Folic Acid 1 mg PO DAILY@1200 tab Metoprolol Tartrate [Lopressor] 25 mg PO BID tab Magnesium Oxide [Mag-Ox] 400 mg PO TID tab Famotidine [Pepcid] 20 mg PO BID #1 tablet Acetaminophen Tab [Tylenol] 500 mg PO Q6HR tab Thiamine [Vitamin B-1] 100 mg PO BID@1200,1700 tab Lisinopril [Zestril] 40 mg PO DAILY tab Furosemide [Lasix] 40 mg PO DAILY #1 tablet Ipratropium-Albuterol Nebulize [Duoneb 0.5 mg-3 mg/3 ml Soln] 3 ml INHALATION RT-TID Multivitamins, Thera [Multivitamin (formulary)] 1 tab PO DAILY@1200 Lactose-Reduced Food [Ensure Plus] 1 can PO BID Melatonin 5 mg PO HS PRN PRN Reason: Insomnia Discontinued Temazepam [Restoril] 30 mg PO HS PRN PRN Reason: Insomnia Discharge Medication List Vits A,C,E/Lutein/Minerals [Ocuvite with Lutein Tablet] 1 tab PO DAILY 01/19/19 [History] Acetaminophen Tab [Tylenol] 500 mg PO Q6HR tab 01/31/19 [Rx] Famotidine [Pepcid] 20 mg PO BID #1 tablet 01/31/19 [Rx] Folic Acid 1 mg PO DAILY@1200 tab 01/31/19 [Rx] Furosemide [Lasix] 40 mg PO DAILY #1 tablet 01/31/19 [Rx] Lisinopril [Zestril] 40 mg PO DAILY tab 01/31/19 [Rx] Magnesium Oxide [Mag-Ox] 400 mg PO TID tab 01/31/19 [Rx] Metoprolol Tartrate [Lopressor] 25 mg PO BID tab 01/31/19 [Rx] Spironolactone [Aldactone] 25 mg PO DAILY tab 01/31/19 [Rx] Tamsulosin [Flomax] 0.4 mg PO PC-SUPPER cap.er.24h 01/31/19 [Rx] Thiamine [Vitamin B-1] 100 mg PO BID@1200,1700 tab 01/31/19 [Rx] Ipratropium-Albuterol Nebulize [Duoneb 0.5 mg-3 mg/3 ml Soln] 3 ml INHALATION RT-TID 02/04/19 [History] Lactose-Reduced Food [Ensure Plus] 1 can PO BID 02/04/19 [History] Melatonin 5 mg PO HS PRN 02/04/19 [History] Multivitamins, Thera [Multivitamin (formulary)] 1 tab PO DAILY@1200 02/04/19 [History] Potassium Chloride ER [K-Dur 20] 20 meq PO DAILY #7 tab 02/05/19 [Rx] Follow up Appointment(s)/Referral(s): Maricel Ontiveros MD [Primary Care Provider] - 1 Week (at [facility]) Ambulatory/Diagnostic Orders: Basic Metabolic Panel [LAB.AMB] Location: None Selected Magnesium [LAB.AMB] Location: None Selected Activity/Diet/Wound Care/Special Instructions: [facility] Discharge Disposition: TRANSFER TO SNF/ECF
[2019-02-05] MEDS: SODIUM CHLORIDE 0.9% 1,000 ML IV SCH (14:05)
[2019-02-05 15:25] VITALS: BMI 14.3
[2019-02-05] MEDS ORDERED: TAMSULOSIN 0.4 MG CAP.ER.24H PO SCH (18:30)
[2019-02-06] MEDS ORDERED: FAMOTIDINE 20 MG TAB PO SCH (09:00)
== END 2019-02-05 16:15 ==
LOC: EC 09:23 → 3SCARD 12:13
PROVIDERS: ADMIT Internal Medicine Geriatric Medicine; ATTEND Internal Medicine Geriatric Medicine
DX: G31.2 Degeneration of nervous system due to alcohol (principal); I45.81 Long QT syndrome; C92.10 Chronic myeloid leukemia, BCR/ABL-positive, not having achieved remission; J90 Pleural effusion, not elsewhere classified; F10.20 Alcohol dependence, uncomplicated; I42.9 Cardiomyopathy, unspecified; I10 Essential (primary) hypertension; N40.1 Benign prostatic hyperplasia with lower urinary tract symptoms; M19.90 Unspecified osteoarthritis, unspecified site; H26.9 Unspecified cataract; J44.9 Chronic obstructive pulmonary disease, unspecified; F17.210 Nicotine dependence, cigarettes, uncomplicated; R53.81 Other malaise; K21.9 Gastro-esophageal reflux disease without esophagitis; S12.000D Unspecified displaced fracture of first cervical vertebra, subsequent encounter for fracture with routine healing; Z79.899 Other long term (current) drug therapy; Z99.81 Dependence on supplemental oxygen; Z96.643 Presence of artificial hip joint, bilateral; Z85.46 Personal history of malignant neoplasm of prostate; Z85.828 Personal history of other malignant neoplasm of skin; Z91.19 Patient's noncompliance with other medical treatment and regimen
CPT/HCPCS: 96374; 96361; 99285; 36415; 94640 ×3; 94760; 93005; 93308; 80053; 82803; 83735; 84484; 85025; 85610; 85730; 81001; 80306; 87086; 71046; G0378 ×2; C9113

== ENCOUNTER 2019-03-02 10:18 | Inpatient (IN) | payer MEDICARE, OTHER ==
[2019-03-02] MEDS ORDERED: SODIUM CHLORIDE 0.9% 1,000 ML IV STA (10:30)
--- NOTE | 2019-03-02 10:37 | ED ---
General Adult HPI - General Stated complaint: Hypotension Time Seen by Provider: 03/02/19 10:29 Source: patient, EMS, RN notes reviewed Mode of arrival: EMS Limitations: altered mental status, physical limitation - History of Present Illness Initial comments: Patient is a pleasant 84-year-old male presenting to the emergency department by EMS for generalized weakness and hypotension. Patient is a poor historian and provides limited history. Patient states he feels fatigued and has no other complaints. EMS reports the patient was hypotensive and appeared short of breath. Daughter arrives and adds that patient has not been eating or drinking for the past several days. She states patient has been declining recently. - Related Data Home Medications Medication Instructions Recorded Confirmed Vits A,C,E/Lutein/Minerals 1 tab PO DAILY 01/19/19 02/04/19 [Ocuvite with Lutein Tablet] Ipratropium-Albuterol Nebulize 3 ml INHALATION RT-TID 02/04/19 02/04/19 [Duoneb 0.5 mg-3 mg/3 ml Soln] Lactose-Reduced Food [Ensure Plus] 1 can PO BID 02/04/19 02/04/19 Melatonin 5 mg PO HS PRN 02/04/19 02/04/19 Multivitamins, Thera [Multivitamin 1 tab PO DAILY@1200 02/04/19 02/04/19 (formulary)] Previous Rx's Medication Instructions Recorded Acetaminophen Tab [Tylenol] 500 mg PO Q6HR tab 01/31/19 Famotidine [Pepcid] 20 mg PO BID #1 tablet 01/31/19 Folic Acid 1 mg PO DAILY@1200 tab 01/31/19 Furosemide [Lasix] 40 mg PO DAILY #1 tablet 01/31/19 Lisinopril [Zestril] 40 mg PO DAILY tab 01/31/19 Magnesium Oxide [Mag-Ox] 400 mg PO TID tab 01/31/19 Metoprolol Tartrate [Lopressor] 25 mg PO BID tab 01/31/19 Spironolactone [Aldactone] 25 mg PO DAILY tab 01/31/19 Tamsulosin [Flomax] 0.4 mg PO PC-SUPPER cap.er.24h 01/31/19 Thiamine [Vitamin B-1] 100 mg PO BID@1200,1700 tab 01/31/19 Potassium Chloride ER [K-Dur 20] 20 meq PO DAILY #7 tab 02/05/19 Allergies Allergy/AdvReac Type Severity Reaction Status Date / Time No Known Allergies Allergy Verified 03/02/19 10:40 Review of Systems ROS Statement: Those systems with pertinent positive or pertinent negative responses have been documented in the HPI. ROS Other: All systems not noted in ROS Statement are negative. Constitutional: Denies: fever Eyes: Denies: eye pain ENT: Denies: ear pain Respiratory: Denies: cough, dyspnea Cardiovascular: Denies: chest pain Endocrine: Reports: fatigue Gastrointestinal: Denies: abdominal pain Genitourinary: Denies: dysuria Musculoskeletal: Denies: back pain Skin: Denies: rash Neurological: Reports: weakness Past Medical History Past Medical History: Blood Disorder, Cancer, Eye Disorder, Osteoarthritis (OA), Prostate Disorder Additional Past Medical History / Comment(s): Cataracts; PROSTATE CA, SKIN CA NOSE. LEUKEMIA History of Any Multi-Drug Resistant Organisms: None Reported Past Surgical History: Joint Replacement, Prostate Surgery Additional Past Surgical History / Comment(s): Juan hip replacement, CATARACT BILAT Past Anesthesia/Blood Transfusion Reactions: No Reported Reaction Past Psychological History: No Psychological Hx Reported Smoking Status: Current some day smoker Past Alcohol Use History: Daily, Occasional Additional Past Alcohol Use History / Comment(s): smokes one pack per day, drinks 3 beers per day- LAST DRINK AND LAST CIGARETTE WAS 01/18/2019 Past Drug Use History: None Reported - Past Family History Mother Family Medical History: No Reported History Additional Family Medical History / Comment(s): no blood or hematological disorders in family General Exam Limitations: altered mental status, physical limitation General appearance: alert, cachectic Head exam: Present: atraumatic Eye exam: Present: normal appearance, EOMI ENT exam: Present: mucous membranes dry Neck exam: Present: normal inspection Respiratory exam: Present: normal lung sounds bilaterally Cardiovascular Exam: Present: regular rate, normal rhythm GI/Abdominal exam: Present: soft. Absent: tenderness Extremities exam: Present: normal inspection Neurological exam: Present: alert. Absent: motor sensory deficit Expanded Neurological exam: Present: protecting the airway Patient oriented to: Present: person. Absent: place, time Motor strength exam: RUE: 5, LUE: 5, RLE: 5, LLE: 5 Psychiatric exam: Present: normal affect, normal mood Skin exam: Present: normal color Course Vital Signs 03/02/19 10:40 Temperature 97.6 F Pulse Rate 78 Respiratory 28 H Rate Blood Pressure 82/42 O2 Sat by Pulse 96 Oximetry - Reevaluation(s) Reevaluation #1: 03/02/19 10:34 Conversation had with daughter who states she is closest family member. She states she would not want patient to be full code and he would not want that either. Discussion was had and patient is no code. No CPR. No intubation. 03/02/19 11:17 Case was discussed with Dr. Phillip, who will admit covering for Dr. Ontiveros. He did come evaluate the patient. Further discussion between family and him has determined that patient is going to be comfort care only. Patient does not want lab work or x-rays and family is in agreement. Dr. Phillip did consult hospice. EKG Findings - EKG Comments: EKG Findings:: Sinus rhythm at 79. For screening AV block MO of 272. QRS 88. QT 440. QTc 504. Left axis. Motion artifact is present. Normal QRS. No acute ST change. Disposition Clinical Impression: Dehydration, Hypotension Disposition: ADMITTED IP TO THIS HOSP Condition: Serious Is patient prescribed a controlled substance at d/c from ED?: No Referrals: Maricel Ontiveros MD [Primary Care Provider] - 1-2 days Decision Time: 11:18
[2019-03-02 10:48] VITALS: BP 82/42; PULSE 78; TEMP 97.6
[2019-03-02 10:50] VITALS: RESP 28
[2019-03-02] MEDS ORDERED: LORazepam 2 MG/ML INJ IV PRN (11:07)
[2019-03-02] MEDS ORDERED: ATROPINE OPHTH SOLN 1% 5ML BTL SUBLINGUAL PRN (11:07)
[2019-03-02] MEDS ORDERED: ONDANSETRON 4 MG/2 ML VIAL IVP PRN (11:07)
[2019-03-02] MEDS ORDERED: ARTIFICIAL TEARS-HYPROMELLOSE DROPS 15 ML BTL BOTH EYES PRN (11:07)
[2019-03-02] MEDS ORDERED: MORPHINE SULFATE (100 MG/2 ML) 100 MG in SODIUM CHLORIDE 0.9% 100 ML IV SCH (12:00)
--- NOTE | 2019-03-02 12:56 | P.HPIM ---
History of Present Illness H&P Date: 03/02/19 Chief Complaint: No oral intake, no urine output. This is an 84-year-old male patient of Dr. knox residing at [facility] with past medical history of prostate cancer, CML, chronic alcoholism, cardiomyopathy with ejection fraction of 30%, benign prostatic hypertrophy, hypertension, gastroesophageal reflux disease, history of prolonged QT in the past of C1 fracture treated at [facility] with no surgical intervention. Patient came into [facility] emergency center as he has not been eating and drinking for 3 days and has not had any urine output. Patient has not had any falls at the senior living. Patient's daughter Palma is at the bedside and states that he does not want any aggressive treatment done and she is his power of tax attorney. Plan is to make patient comfortable and involve hospice care. All aggressive treatment will be discontinued and patient will be placed on the medical floor and consult with hospice ordered. Review of Systems ROS unobtainable: due to mental status Past Medical History Past Medical History: Blood Disorder, Cancer, Eye Disorder, Osteoarthritis (OA), Prostate Disorder Additional Past Medical History / Comment(s): Cataracts; PROSTATE CA, SKIN CA NOSE. LEUKEMIA History of Any Multi-Drug Resistant Organisms: None Reported Past Surgical History: Joint Replacement, Prostate Surgery Additional Past Surgical History / Comment(s): Juan hip replacement, CATARACT BILAT Past Anesthesia/Blood Transfusion Reactions: No Reported Reaction Past Psychological History: No Psychological Hx Reported Smoking Status: Former smoker Past Alcohol Use History: None Reported, Daily, Occasional Past Drug Use History: None Reported - Past Family History Mother Family Medical History: No Reported History Additional Family Medical History / Comment(s): no blood or hematological disorders in family Medications and Allergies Home Medications Medication Instructions Recorded Confirmed Type Vits A,C,E/Lutein/Minerals 1 tab PO DAILY 01/19/19 03/02/19 History [Ocuvite with Lutein Tablet] Acetaminophen Tab [Tylenol] 500 mg PO Q6HR tab 01/31/19 03/02/19 Rx Famotidine [Pepcid] 20 mg PO BID #1 tablet 01/31/19 03/02/19 Rx Folic Acid 1 mg PO DAILY@1200 tab 01/31/19 03/02/19 Rx Furosemide [Lasix] 40 mg PO DAILY #1 tablet 01/31/19 03/02/19 Rx Magnesium Oxide [Mag-Ox] 400 mg PO TID tab 01/31/19 03/02/19 Rx Metoprolol Tartrate [Lopressor] 25 mg PO BID tab 01/31/19 03/02/19 Rx Spironolactone [Aldactone] 25 mg PO DAILY tab 01/31/19 03/02/19 Rx Thiamine [Vitamin B-1] 100 mg PO BID@1200,1700 tab 01/31/19 03/02/19 Rx Lactose-Reduced Food [Ensure Plus] 1 can PO TID 02/04/19 03/02/19 History Multivitamins, Thera [Multivitamin 1 tab PO DAILY@1200 02/04/19 03/02/19 History (formulary)] Potassium Chloride ER [K-Dur 20] 20 meq PO DAILY #7 tab 02/05/19 03/02/19 Rx Bethanechol Chloride [Urecholine] 25 mg PO BID 03/02/19 03/02/19 History Lisinopril [Zestril] 20 mg PO DAILY 03/02/19 03/02/19 History Tamsulosin [Flomax] 0.4 mg PO HS 03/02/19 03/02/19 History Allergies Allergy/AdvReac Type Severity Reaction Status Date / Time No Known Allergies Allergy Verified 03/02/19 12:19 Physical Exam Vitals: Vital Signs Temp Pulse Resp BP Pulse Ox 03/02/19 10:40 97.6 F 78 28 H 82/42 96 Intake and Output 03/01/19 03/02/19 03/02/19 22:59 06:59 14:59 Other: Weight 40.823 kg Gen: This is an 84-year-old male, cachectic appearing, in moderate to severe respiratory distress with accessory muscle usage. HEENT: Head is atraumatic, normocephalic. Dry mucous membranes. NECK: Supple. No JVD. No lymphadenopathy. No thyromegaly. LUNGS: Diminished bilaterally. +intercostal retractions. HEART: Regular rate and rhythm. Systolic murmur. ABDOMEN: Soft. Bowel sounds are present. No masses. No tenderness. EXTREMITIES: No pedal edema. No calf tenderness. NEUROLOGICAL: Patient is awake, oriented x1. Thrombosis Risk Factor Assmnt - DVT/VTE Prophylaxis DVT/VTE Prophylaxis: Contraindicated - See note Assessment and Plan Plan: 1. Acute hypoxic respiratory failure requiring a nonrebreather. Patient will be transitioned to nasal cannula. 2. Generalized weakness with hypotension and dehydration with hypovolemic shock. Continue comfort measures. 3. 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 4. Chronic CML. 5. Cardiomyopathy with known ejection fraction of 30%. 6. Hypertension history. 7. Gastroesophageal reflux disease. Plan: Patient will be evaluated by hospice and most likely transition to inpatient hospice. Patient will be started on a morphine drip, Ativan IV, at ropine drops sublingually. Benson catheter to be placed. Case management/social work following. Patient will be admitted to the hospital for a minimum of 2 night stay. Discharge plan: Inpatient hospice as patient is not expected to live greater than 24-48 hours. Impression and plan of care have been directed as dictated by the signing physician. Isis Claudio nurse practitioner acting as scribe for signing physician.
== END 2019-03-02 14:42 | disposition hospice, inpatient (51) | DRG 189 ==
LOC: EC 10:18 → 3NMEDONC 11:12 → 4SSUR 13:07
PROVIDERS: ADMIT Internal Medicine; ATTEND Internal Medicine
DX: J96.01 Acute respiratory failure with hypoxia (principal); R57.1 Hypovolemic shock; F10.27 Alcohol dependence with alcohol-induced persisting dementia; I42.9 Cardiomyopathy, unspecified; R64 Cachexia; Z68.1 Body mass index [BMI] 19.9 or less, adult; E86.0 Dehydration; Z66 Do not resuscitate; Z51.5 Encounter for palliative care; I10 Essential (primary) hypertension; K21.9 Gastro-esophageal reflux disease without esophagitis; M19.90 Unspecified osteoarthritis, unspecified site; N40.0 Benign prostatic hyperplasia without lower urinary tract symptoms; Z79.899 Other long term (current) drug therapy; Z87.891 Personal history of nicotine dependence; Z98.42 Cataract extraction status, left eye; Z98.41 Cataract extraction status, right eye; Z85.46 Personal history of malignant neoplasm of prostate; Z85.6 Personal history of leukemia; Z96.643 Presence of artificial hip joint, bilateral; Z85.828 Personal history of other malignant neoplasm of skin; Z87.81 Personal history of (healed) traumatic fracture
CPT/HCPCS: 96361; 96365; 96366; 96375; 99285

== ENCOUNTER 2019-03-02 14:26 | Inpatient (IN) | payer MEDICAID ==
[2019-03-02] MEDS ORDERED: ONDANSETRON 4 MG/2 ML VIAL IVP PRN (14:28)
[2019-03-02] MEDS ORDERED: ACETAMINOPHEN SUPPOSITORY 650 MG SUPP RECTAL PRN (14:28)
[2019-03-02] MEDS ORDERED: SCOPOLAMINE 1.5MG/72HR PATCH TRANSDERM SCH (14:30)
[2019-03-02] MEDS: LORazepam 2 MG/ML INJ IV PRN ×2 (15:41→17:34)
[2019-03-02] MEDS: MORPHINE SULFATE (100 MG/2 ML) 100 MG in SODIUM CHLORIDE 0.9% 100 ML IV SCH (15:43)
[2019-03-03] MEDS: MORPHINE SULFATE (100 MG/2 ML) 100 MG in SODIUM CHLORIDE 0.9% 100 ML IV SCH ×2 (01:00→12:34)
--- NOTE | 2019-03-03 10:54 | P.HPIM ---
History of Present Illness H&P Date: 03/03/19 Chief Complaint: No oral intake, no urine output This is an 84-year-old male patient of Dr. knox residing at [facility] with past medical history of prostate cancer, CML, chronic alcoholism, cardiomyopathy with ejection fraction of 30%, benign prostatic hypertrophy, hypertension, gastroesophageal reflux disease, history of prolonged QT in the past of C1 fracture treated at [facility] with no surgical intervention. Patient came into [facility] emergency center as he has not been eating and drinking for 3 days and has not had any urine output. Patient has not had any falls at the intermediate. Patient's daughter Palma is at the bedside and states that he does not want any aggressive treatment done and she is his power of county attorney. Plan is to make patient comfortable and involve hospice care. All aggressive treatment will be discontinued and patient will be placed on the medical floor and consult with hospice ordered. Review of Systems ROS unobtainable: due to mental status Past Medical History Past Medical History: Atrial Fibrillation, Blood Disorder, Cancer, Heart Failure, Eye Disorder, GERD/Reflux, Hypertension, Liver Disease, Osteoarthritis (OA), Pneumonia, Prostate Disorder Additional Past Medical History / Comment(s): Prostate cancer with brachytherapy, skin cancer with removal, CML, ETOH abuse, Wernickies en cephalopathy, cirrhosis of the liver, prolonged QT interval, cardiomyopathy/EF 30%, bilateral pleural effusions, hypokalemia, aspiation pneumonia, hypoalbunemia, anemia, dysphagia, spondylosis'stenosis lumbar spine, past displaced C1 fracture, wedge fracture L2, difficulty walking, frequent falls.current sore on buttock, History of Any Multi-Drug Resistant Organisms: None Reported Past Surgical History: Joint Replacement, Prostate Surgery Additional Past Surgical History / Comment(s): Juan hip replacement, bilateral cataract removals/lens implants, skin cancer removals, brachytherapy prostate. Past Anesthesia/Blood Transfusion Reactions: No Reported Reaction Smoking Status: Former smoker - Past Family History Mother History Unknown: Yes Family Medical History: No Reported History Additional Family Medical History / Comment(s): Pt was adopted. Family knows pt's biological mother lived to be 88yrs old. Father Additional Family Medical History / Comment(s): Pt was adopted. Family knows biological father was an alcoholic. Medications and Allergies Home Medications Medication Instructions Recorded Confirmed Type Vits A,C,E/Lutein/Minerals 1 tab PO DAILY 01/19/19 03/02/19 History [Ocuvite with Lutein Tablet] Acetaminophen Tab [Tylenol] 500 mg PO Q6HR tab 01/31/19 03/02/19 Rx Famotidine [Pepcid] 20 mg PO BID #1 tablet 01/31/19 03/02/19 Rx Folic Acid 1 mg PO DAILY@1200 tab 01/31/19 03/02/19 Rx Furosemide [Lasix] 40 mg PO DAILY #1 tablet 01/31/19 03/02/19 Rx Magnesium Oxide [Mag-Ox] 400 mg PO TID tab 01/31/19 03/02/19 Rx Metoprolol Tartrate [Lopressor] 25 mg PO BID tab 01/31/19 03/02/19 Rx Spironolactone [Aldactone] 25 mg PO DAILY tab 01/31/19 03/02/19 Rx Thiamine [Vitamin B-1] 100 mg PO BID@1200,1700 tab 01/31/19 03/02/19 Rx Lactose-Reduced Food [Ensure Plus] 1 can PO TID 02/04/19 03/02/19 History Multivitamins, Thera [Multivitamin 1 tab PO DAILY@1200 02/04/19 03/02/19 History (formulary)] Potassium Chloride ER [K-Dur 20] 20 meq PO DAILY #7 tab 02/05/19 03/02/19 Rx Bethanechol Chloride [Urecholine] 25 mg PO BID 03/02/19 03/02/19 History Lisinopril [Zestril] 20 mg PO DAILY 03/02/19 03/02/19 History Tamsulosin [Flomax] 0.4 mg PO HS 03/02/19 03/02/19 History Allergies Allergy/AdvReac Type Severity Reaction Status Date / Time No Known Allergies Allergy Verified 03/02/19 12:19 Physical Exam Vitals: Intake and Output 03/02/19 03/03/19 03/03/19 22:59 06:59 14:59 Intake Total 34.608 100.8 Balance 34.608 100.8 Intake: IV 24 49 Morphine Sulfate (100 mg/ 24 49 2 ml) 100 mg In Sodium Chloride 0.9% 100 ml @ 1 MG/HR 1.02 mls/hr IV . Q24H [facility] Rx#:[id number] Intake, IV Titration 10.608 51.8 Amount Morphine Sulfate (100 mg/ 10.608 51.8 2 ml) 100 mg In Sodium Chloride 0.9% 100 ml @ 1 MG/HR 1.02 mls/hr IV . Q24H [facility] Rx#:[id number] Other: Voiding Method Diaper Diaper Incontinent Incontinent # Voids 2 Gen: This is an 84-year-old male, cachectic appearing, in moderate to severe respiratory distress with accessory muscle usage. HEENT: Head is atraumatic, normocephalic. Dry mucous membranes. NECK: Supple. No JVD. No lymphadenopathy. No thyromegaly. LUNGS: Diminished bilaterally. +intercostal retractions. HEART: Regular rate and rhythm. Systolic murmur. ABDOMEN: Soft. Bowel sounds are present. No masses. No tenderness. EXTREMITIES: No pedal edema. No calf tenderness. NEUROLOGICAL: Patient is awake, oriented x1. Assessment and Plan Plan: 1. Acute hypoxic respiratory failure requiring a nonrebreather. Patient will be transitioned to nasal cannula. 2. Generalized weakness with hypotension and dehydration with hypovolemic shock. Continue comfort measures. 3. 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 4. Chronic CML. 5. Cardiomyopathy with known ejection fraction of 30%. 6. Hypertension history. 7. Gastroesophageal reflux disease. Plan: Hospice care continue with comfort measures Patient will be admitted to the hospital for a minimum of 2 night stay. Discharge plan: Inpatient hospice as patient is not expected to live greater than 24-48 hours. Impression and plan of care have been directed as dictated by the signing physician. Tanisha Crum nurse practitioner acting as scribe for signing physician
[2019-03-03 13:16] VITALS: BMI 16.4
== END 2019-03-03 17:15 | disposition expired | DRG 951 ==
LOC: 4SSUR 14:50
PROVIDERS: ADMIT Internal Medicine; ATTEND Internal Medicine
DX: Z51.5 Encounter for palliative care (principal); J96.01 Acute respiratory failure with hypoxia; F10.27 Alcohol dependence with alcohol-induced persisting dementia; I42.9 Cardiomyopathy, unspecified; C92.10 Chronic myeloid leukemia, BCR/ABL-positive, not having achieved remission; R57.1 Hypovolemic shock; E86.0 Dehydration; I11.0 Hypertensive heart disease with heart failure; I50.9 Heart failure, unspecified; R13.10 Dysphagia, unspecified; I48.91 Unspecified atrial fibrillation; K21.9 Gastro-esophageal reflux disease without esophagitis; K74.60 Unspecified cirrhosis of liver; M47.9 Spondylosis, unspecified; M48.061 Spinal stenosis, lumbar region without neurogenic claudication; R29.6 Repeated falls; M19.90 Unspecified osteoarthritis, unspecified site; N40.0 Benign prostatic hyperplasia without lower urinary tract symptoms; R32 Unspecified urinary incontinence; Z79.899 Other long term (current) drug therapy; Z87.891 Personal history of nicotine dependence; Z96.643 Presence of artificial hip joint, bilateral; Z85.46 Personal history of malignant neoplasm of prostate; Z85.828 Personal history of other malignant neoplasm of skin; Z87.01 Personal history of pneumonia (recurrent); Z98.42 Cataract extraction status, left eye; Z98.41 Cataract extraction status, right eye; Z96.1 Presence of intraocular lens